=== PATIENT | male | born 1975 | race Caucasian/White ===

== ENCOUNTER 2016-12-06 11:37 | Emergency (ER) | payer SELFPAY ==
[~2016-12-06] VITALS: Ht 182.9 cm; Wt 268.1 kg
[2016-12-06] MEDS ORDERED: ALBU17IN2 INH (12:53)
[2016-12-06] MEDS ORDERED: SYMB16INH INH (12:53)
[2016-12-06] MEDS ORDERED: PRED20TA PO (12:53)
[2016-12-06] MEDS ORDERED: ALBU83IN INH (12:53)
[2016-12-06 13:43] VITALS: BP 132/72
== END 2016-12-06 13:47 | disposition home or self-care (01) ==
LOC: M ED 13:29
DX: Z76.0 Encounter for issue of repeat prescription (principal); G47.33 Obstructive sleep apnea (adult) (pediatric); E66.9 Obesity, unspecified; F17.210 Nicotine dependence, cigarettes, uncomplicated

== ENCOUNTER 2018-02-11 20:15 | Emergency (ER) | payer OTHER, SELFPAY ==
[2018-02-11] MEDS: FUROSEMIDE 100 MG/10 ML VIAL (J1940) IV (20:59)
[2018-02-11] MEDS: ASPIRIN 81 MG CHEW TABLET PO (20:59)
[2018-02-11] MEDS: IPRATROPIUM 0.5MG/ALBUTEROL 2.5MG INH SOL UD 3ML (DUONEB)(J7620) NEB (21:03)
[2018-02-11 21:04] LABS: BASO % 0.2 % (0.0-1.0); EOS # 0.1 10^3/uL (0.0-0.50); EOS % 1.4 % (0.0-3.0); HEMATOCRIT 36.9 % (42.0-52.0); HEMOGLOBIN 11.7 g/dl (13.5-17.5); IMMATURE GRANULOCYTE % 0.4 % (0-3.0); LYMPH # 1.2 10^3/uL (1.5-4.5); LYMPH % 12.7 % (24.0-44.0); MEAN CORPUSCULAR HEMOGLOBIN 28.3 pg (27.0-33.0); MEAN CORPUSCULAR HGB CONC 31.7 g/dl (32.0-36.5); MEAN CORPUSCULAR VOLUME 89.3 fl (80.0-96.0); MONO # 0.6 10^3/uL (0.0-0.8); NEUTROPHILS # 7.6 10^3/uL (1.8-7.7); NEUTROPHILS % 79.3 % (36.0-66.0); PLATELET COUNT, AUTOMATED 374 10^3/uL (150-450); RED BLOOD COUNT 4.13 10^6/uL (4.30-6.10); RED CELL DISTRIBUTION WIDTH 15.4 % (11.5-14.5); WHITE BLOOD COUNT 9.6 10^3/uL (4.0-10.0)
[2018-02-11 21:14] LABS: PROTHROMBIN TIME 13.3 SECONDS (12.1-14.4)
[2018-02-11 21:28] LABS: ALBUMIN/GLOBULIN RATIO 0.48 (1.00-1.93); ALKALINE PHOSPHATASE 83 U/L (45-117); ALT/SGPT 32 U/L (12-78); ANION GAP 8 MEQ/L (8-16); AST/SGOT 17 U/L (7-37); BILIRUBIN,DIRECT 0.2 MG/DL (0.0-0.2); BILIRUBIN,TOTAL 0.7 MG/DL (0.2-1.0); BLOOD UREA NITROGEN 11 MG/DL (7-18); CALCIUM LEVEL 8.6 MG/DL (8.5-10.1); CARBON DIOXIDE LEVEL 29 MEQ/L (21-32); CHLORIDE LEVEL 102 MEQ/L (98-107); CK-MB VALUE MASS < 1.0 NG/ML (<3.6); CPK CREATINE PHOSPHOKINASE 76 U/L (39-308); CREATININE FOR GFR 0.94 MG/DL (0.70-1.30); GLOMERULAR FILTRATION RATE > 60.0 (>60); GLUCOSE, FASTING 122 MG/DL (70-100); MB/CK RELATIVE INDEX 1.31 (< OR =4); SODIUM LEVEL 139 MEQ/L (136-145); TOTAL PROTEIN 9.3 GM/DL (6.4-8.2); TROPONIN I < 0.02 NG/ML (< 0.10)
== END 2018-02-11 23:39 | disposition home or self-care (01) ==
LOC: M ED 20:15
DX: M79.89 Other specified soft tissue disorders (principal); R06.00 Dyspnea, unspecified; R00.0 Tachycardia, unspecified; R94.31 Abnormal electrocardiogram [ECG] [EKG]; I51.9 Heart disease, unspecified; I10 Essential (primary) hypertension; J44.9 Chronic obstructive pulmonary disease, unspecified
CPT/HCPCS: J1940

== ENCOUNTER → 2018-02-22 | Outpatient (REF) | payer OTHER | LOC: M SFHCPLAZ 15:23 | DX: R06.02 Shortness of breath (principal); E03.9 Hypothyroidism, unspecified; E11.8 Type 2 diabetes mellitus with unspecified complications ==

== ENCOUNTER → 2018-03-01 | Outpatient (REF) | payer OTHER ==
[2018-03-01 14:55] LABS: ESTIMATED AVERAGE GLUCOSE 120 MG/DL (60-110); HEMOGLOBIN A1c 5.8 %
[2018-03-01 15:53] LABS: TOTAL T3 107.1 NG/DL (60.0-181.0)
== END ==
LOC: M LABDRAWP 13:11
DX: R06.02 Shortness of breath (principal); E03.9 Hypothyroidism, unspecified; E11.8 Type 2 diabetes mellitus with unspecified complications
CPT/HCPCS: 84443

== ENCOUNTER → 2018-03-01 | Outpatient (REF) | payer OTHER | LOC: M SFHCPLAZ 15:31 | DX: E03.9 Hypothyroidism, unspecified (principal) ==

== ENCOUNTER 2018-03-07 07:25 | Emergency (ER) | payer OTHER ==
[2018-03-07 08:14] LABS: BASO % 0.1 % (0.0-1.0); EOS # 0.2 10^3/uL (0.0-0.50); EOS % 1.5 % (0.0-3.0); HEMATOCRIT 35.1 % (42.0-52.0); HEMOGLOBIN 10.9 g/dl (13.5-17.5); IMMATURE GRANULOCYTE % 0.4 % (0-3.0); LYMPH # 0.8 10^3/uL (1.5-4.5); LYMPH % 7.9 % (24.0-44.0); MEAN CORPUSCULAR HEMOGLOBIN 28.2 pg (27.0-33.0); MEAN CORPUSCULAR HGB CONC 31.1 g/dl (32.0-36.5); MEAN CORPUSCULAR VOLUME 90.7 fl (80.0-96.0); MONO # 0.5 10^3/uL (0.0-0.8); MONO % 4.8 % (0.0-5.0); NEUTROPHILS % 85.3 % (36.0-66.0); PLATELET COUNT, AUTOMATED 329 10^3/uL (150-450); RED BLOOD COUNT 3.87 10^6/uL (4.30-6.10); RED CELL DISTRIBUTION WIDTH 15.4 % (11.5-14.5); WHITE BLOOD COUNT 10.5 10^3/uL (4.0-10.0)
[2018-03-07 08:25] LABS: INR 1.08; PROTHROMBIN TIME 14.1 SECONDS (12.1-14.4)
[2018-03-07 08:46] LABS: ALBUMIN 2.7 GM/DL (3.2-5.2); ALBUMIN/GLOBULIN RATIO 0.46 (1.00-1.93); ALKALINE PHOSPHATASE 84 U/L (45-117); ALT/SGPT 33 U/L (12-78); ANION GAP 8 MEQ/L (8-16); AST/SGOT 18 U/L (7-37); BILIRUBIN,DIRECT 0.2 MG/DL (0.0-0.2); BILIRUBIN,TOTAL 0.7 MG/DL (0.2-1.0); BLOOD UREA NITROGEN 10 MG/DL (7-18); CALCIUM LEVEL 8.8 MG/DL (8.5-10.1); CARBON DIOXIDE LEVEL 26 MEQ/L (21-32); CHLORIDE LEVEL 104 MEQ/L (98-107); CPK CREATINE PHOSPHOKINASE 60 U/L (39-308); CREATININE FOR GFR 0.85 MG/DL (0.70-1.30); GLOMERULAR FILTRATION RATE > 60.0 (>60); GLUCOSE, FASTING 117 MG/DL (70-100); POTASSIUM SERUM 3.9 MEQ/L (3.5-5.1); SODIUM LEVEL 138 MEQ/L (136-145); TOTAL PROTEIN 8.6 GM/DL (6.4-8.2); TROPONIN I < 0.02 NG/ML (< 0.10)
[2018-03-07 08:52] LABS: CK-MB VALUE MASS 1.1 NG/ML (<3.6); MB/CK RELATIVE INDEX 1.83 (< OR =4); NT-PRO BNP 42 PG/ML (<125)
[2018-03-07 11:00] LABS: ESTIMATED AVERAGE GLUCOSE 120 MG/DL (60-110); HEMOGLOBIN A1c 5.8 %
== END 2018-03-07 12:00 | disposition home or self-care (01) ==
LOC: M ED 07:25
DX: S80.02XA Contusion of left knee, initial encounter (principal); S70.02XA Contusion of left hip, initial encounter; W01.0XXA Fall on same level from slipping, tripping and stumbling without subsequent striking against object, initial encounter; Y92.89 Other specified places as the place of occurrence of the external cause; E11.9 Type 2 diabetes mellitus without complications; I10 Essential (primary) hypertension; J44.9 Chronic obstructive pulmonary disease, unspecified; E07.9 Disorder of thyroid, unspecified; I89.0 Lymphedema, not elsewhere classified; Z79.899 Other long term (current) drug therapy; Z79.84 Long term (current) use of oral hypoglycemic drugs; Z87.891 Personal history of nicotine dependence
CPT/HCPCS: 71046

== ENCOUNTER → 2018-03-22 | Outpatient (REF) | payer OTHER ==
[2018-03-22 18:30] LABS: ANION GAP 9 MEQ/L (8-16); BLOOD UREA NITROGEN 8 MG/DL (7-18); CALCIUM LEVEL 8.8 MG/DL (8.5-10.1); CARBON DIOXIDE LEVEL 28 MEQ/L (21-32); CHLORIDE LEVEL 100 MEQ/L (98-107); GLOMERULAR FILTRATION RATE > 60.0 (>60); GLUCOSE, FASTING 86 MG/DL (70-100); POTASSIUM SERUM 3.9 MEQ/L (3.5-5.1); SODIUM LEVEL 137 MEQ/L (136-145)
== END ==
LOC: M SFHCPLAZ 15:46
DX: I89.0 Lymphedema, not elsewhere classified (principal)

== ENCOUNTER → 2018-04-04 | Outpatient (CLI) | payer OTHER | LOC: M CARPUL 10:29 | DX: I89.0 Lymphedema, not elsewhere classified (principal) | CPT/HCPCS: 93306 ==

== ENCOUNTER → 2018-04-05 | Outpatient (REF) | payer OTHER | LOC: M SFHCPLAZ 14:45 | DX: I89.0 Lymphedema, not elsewhere classified (principal) ==

== ENCOUNTER 2018-05-10 10:48 | Outpatient (RCR) | payer OTHER | END 2018-05-12 | LOC: M PT 10:48 | DX: I89.0 Lymphedema, not elsewhere classified (principal) | CPT/HCPCS: 97530 ==

== ENCOUNTER 2018-05-13 14:46 | Outpatient (RCR) | payer OTHER | END 2018-06-12 | LOC: M PT 05-15 14:44 | DX: I89.0 Lymphedema, not elsewhere classified (principal) | CPT/HCPCS: 97140 ==

== ENCOUNTER 2018-06-14 15:30 | Outpatient (RCR) | payer OTHER | END 2018-07-12 | LOC: M PT 15:30 | DX: I89.0 Lymphedema, not elsewhere classified (principal) | CPT/HCPCS: 97140 ==

== ENCOUNTER 2018-07-07 00:03 | Emergency (ER) | payer OTHER ==
[2018-07-07] MEDS ORDERED: LORazepam 2 MG/ML VIAL (J2060) IV (01:10)
[2018-07-07 01:22] LABS: BASO % 0.3 % (0.0-1.0); EOS # 0.4 10^3/uL (0.0-0.50); EOS % 5.3 % (0.0-3.0); HEMATOCRIT 40.1 % (42.0-52.0); HEMOGLOBIN 12.6 g/dl (13.5-17.5); IMMATURE GRANULOCYTE % 0.4 % (0-3.0); LYMPH # 1.3 10^3/uL (1.5-4.5); LYMPH % 17.1 % (24.0-44.0); MEAN CORPUSCULAR HEMOGLOBIN 28.1 pg (27.0-33.0); MEAN CORPUSCULAR HGB CONC 31.4 g/dl (32.0-36.5); MEAN CORPUSCULAR VOLUME 89.5 fl (80.0-96.0); MONO # 0.4 10^3/uL (0.0-0.8); MONO % 5.3 % (0.0-5.0); NEUTROPHILS # 5.6 10^3/uL (1.8-7.7); NEUTROPHILS % 71.6 % (36.0-66.0); PLATELET COUNT, AUTOMATED 321 10^3/uL (150-450); RED BLOOD COUNT 4.48 10^6/uL (4.30-6.10); RED CELL DISTRIBUTION WIDTH 14.5 % (11.5-14.5); WHITE BLOOD COUNT 7.8 10^3/uL (4.0-10.0)
[2018-07-07 01:54] LABS: ANION GAP 8 MEQ/L (8-16); BLOOD UREA NITROGEN 10 MG/DL (7-18); CALCIUM LEVEL 8.9 MG/DL (8.5-10.1); CARBON DIOXIDE LEVEL 27 MEQ/L (21-32); CHLORIDE LEVEL 102 MEQ/L (98-107); CREATININE FOR GFR 0.81 MG/DL (0.70-1.30); GLOMERULAR FILTRATION RATE > 60.0 (>60); GLUCOSE, FASTING 111 MG/DL (70-100); NT-PRO BNP 47 PG/ML (<125); SODIUM LEVEL 137 MEQ/L (136-145)
[2018-07-07] MEDS: IPRATROPIUM 0.5MG/ALBUTEROL 2.5MG INH SOL UD 3ML (DUONEB)(J7620) NEB (01:56)
[2018-07-07] MEDS: ALBUTEROL 90 MCG/ACT 8GM HFA INHALER INH (04:15)
== END 2018-07-07 05:06 | disposition home or self-care (01) ==
LOC: M ED 00:03
DX: J00 Acute nasopharyngitis [common cold] (principal); I50.9 Heart failure, unspecified; E11.9 Type 2 diabetes mellitus without complications; J44.9 Chronic obstructive pulmonary disease, unspecified; Z87.891 Personal history of nicotine dependence
CPT/HCPCS: 71045

== ENCOUNTER → 2018-08-02 | Outpatient (REF) | payer OTHER ==
[~2018-08-02] MED LIST: ALBU17IN2 INH; ALBU83IN INH; FURO80TA2 PO; HYDR12.55 PO; INDO25CA PO; METF10004 PO; NYST1POW9 TOP; OMEP20CA3 PO; PHEN-239 PO; PRED20TA PO; PROAAER10 INH; SYMB16INH INH; TOPI100T9 PO; VENTAER INH
== END ==
LOC: M SFHCPLAZ 14:15
DX: I89.0 Lymphedema, not elsewhere classified (principal)

== ENCOUNTER → 2019-11-25 | Outpatient (REF) | payer OTHER ==
[~2019-11-25] MED LIST changes: +INDO-16 PO; -INDO25CA PO; +OMEP1CAP73 PO; -OMEP20CA3 PO
[2019-11-25 18:37] LABS: BLOOD UREA NITROGEN 12 MG/DL (7-18); CALCIUM LEVEL 9.5 MG/DL (8.5-10.1); CARBON DIOXIDE LEVEL 28 MEQ/L (21-32); CHLORIDE LEVEL 104 MEQ/L (98-107); GLOMERULAR FILTRATION RATE > 60.0 (>60); GLUCOSE, FASTING 84 MG/DL (70-100); POTASSIUM SERUM 3.7 MEQ/L (3.5-5.1); SODIUM LEVEL 138 MEQ/L (136-145)
== END ==
LOC: M SFHCPLAZ 17:45
PROVIDERS: ATTEND Internal Medicine
DX: I89.0 Lymphedema, not elsewhere classified (principal)

== ENCOUNTER → 2021-07-18 | Outpatient (REF) | payer OTHER ==
[~2021-07-18] MED LIST changes: +PROV108A INH
== END ==
LOC: M SFHCPLAZ 15:51
PROVIDERS: ATTEND Family Medicine
DX: E03.9 Hypothyroidism, unspecified (principal); R73.03 Prediabetes

== ENCOUNTER → 2022-06-26 | Outpatient (REF) | payer OTHER ==
[~2022-06-26] MED LIST changes: +ALBU2.5V10 INH; +ALBU6.7H6 INH; -ALBU83IN INH; -PROV108A INH
[2022-06-26 18:25] LABS: BASO % 0.2 % (0.0-1.0); EOS # 0.2 10^3/uL (0.0-0.5); EOS % 2.7 % (0.0-3.0); HEMATOCRIT 44.7 % (42.0-52.0); HEMOGLOBIN 13.4 g/dl (13.5-17.5); LYMPH # 1.1 10^3/uL (1.5-5.0); LYMPH % 13.9 % (24.0-44.0); MEAN CORPUSCULAR HEMOGLOBIN 29.6 pg (27.0-33.0); MEAN CORPUSCULAR VOLUME 98.7 fl (80.0-96.0); MONO # 0.5 10^3/uL (0.0-0.8); MONO % 6.5 % (2.0-8.0); NEUTROPHILS # 6.2 10^3/uL (1.5-8.5); NEUTROPHILS % 76.1 % (36.0-66.0); PLATELET COUNT, AUTOMATED 305 10^3/uL (150-450); RED BLOOD COUNT 4.53 10^6/uL (4.30-6.10); WHITE BLOOD COUNT 8.1 10^3/uL (4.0-10.0)
[2022-06-26 19:23] LABS: ALT/SGPT 21 U/L (12-78); BILIRUBIN,TOTAL 0.3 MG/DL (0.2-1.0); BLOOD UREA NITROGEN 14 MG/DL (7-18); CALCIUM LEVEL 8.3 MG/DL (8.5-10.1); CARBON DIOXIDE LEVEL 29 MEQ/L (21-32); CHLORIDE LEVEL 107 MEQ/L (98-107); CREATININE FOR GFR 0.61 MG/DL (0.70-1.30); FREE T4 0.77 NG/DL (0.76-1.46); GLOMERULAR FILTRATION RATE > 60.0 (>60); GLUCOSE, FASTING 108 MG/DL (70-100); NT-PRO BNP 172 PG/ML (<125); POTASSIUM SERUM 5.2 MEQ/L (3.5-5.1); SODIUM LEVEL 141 MEQ/L (136-145)
[2022-06-26 20:49] LABS: HEMOGLOBIN A1c 5.5 %
[2022-06-26 21:09] LABS: THYROGLOBULIN ANTIBODY < 15.0 U/ML (<60.0); THYROID PEROXIDASE ANTIBODY 57.9 U/ML (<60.0)
[2022-06-26 22:32] LABS: FREE T3 3.1 PG/ML (2.2-4.0)
== END ==
LOC: M LAB REF 17:19
PROVIDERS: ATTEND Nurse Practitioner Family
DX: R60.0 Localized edema (principal); R73.03 Prediabetes; R94.6 Abnormal results of thyroid function studies

== ENCOUNTER 2022-09-26 02:36 | Inpatient (IN) | payer OTHER ==
[~2022-09-26] VITALS: Ht 182.9 cm; Wt 287.5 kg
[2022-09-26] MEDS ORDERED: IPRATROPIUM 0.5MG/ALBUTEROL 2.5MG INH SOL UD 3ML (DUONEB) NEB ONE (03:15)
[2022-09-26 04:34] LABS: BASO % 0.3 % (0.0-1.0); EOS # 0.4 10^3/uL (0.0-0.5); EOS % 3.6 % (0.0-3.0); HEMATOCRIT 41.1 % (42.0-52.0); HEMOGLOBIN 12.8 g/dl (13.5-17.5); LYMPH # 1.5 10^3/uL (1.5-5.0); LYMPH % 14.8 % (24.0-44.0); MEAN CORPUSCULAR HEMOGLOBIN 29.7 pg (27.0-33.0); MEAN CORPUSCULAR HGB CONC 31.1 g/dl (32.0-36.5); MEAN CORPUSCULAR VOLUME 95.4 fl (80.0-96.0); MONO # 0.7 10^3/uL (0.0-0.8); MONO % 6.8 % (2.0-8.0); NEUTROPHILS # 7.4 10^3/uL (1.5-8.5); NEUTROPHILS % 74.1 % (36.0-66.0); PLATELET COUNT, AUTOMATED 300 10^3/uL (150-450); RED BLOOD COUNT 4.31 10^6/uL (4.30-6.10); WHITE BLOOD COUNT 9.9 10^3/uL (4.0-10.0)
[2022-09-26 04:57] LABS: BLOOD UREA NITROGEN 10 MG/DL (9-23); CALCIUM LEVEL 8.4 MG/DL (8.5-10.1); CARBON DIOXIDE LEVEL 30 MMOL/L (20-31); CHLORIDE LEVEL 104 MMOL/L (98-107); CK-MB VALUE MASS 2.2 NG/ML (<3.6); CPK CREATINE PHOSPHOKINASE 78 U/L (46-171); CREATININE FOR GFR 0.67 MG/DL (0.70-1.30); GLOMERULAR FILTRATION RATE > 60.0 (>60); GLUCOSE, FASTING 113 MG/DL (60-100); MB/CK RELATIVE INDEX 2.82 (< OR =4); POTASSIUM SERUM 4.2 MMOL/L (3.5-5.1); SODIUM LEVEL 138 MMOL/L (136-145)
[2022-09-26 05:08] LABS: ABG BASE EXCESS 2.2 (-2.0-2.0); ABG HCO3 26.6 MEQ/L (22.0-26.0); ABG PARTIAL PRESSURE CO2 40.5 mmHg (35.0-45.0); ABG PARTIAL PRESSURE O2 101.5 mmHg (75.0-100.0); ABG STANDARD HCO3 26.4 MEQ/L (22.0-26.0); ABG TOTAL CO2 27.8 MEQ/L (22.0-29.0); ABG pH (ARTERIAL) 7.435 UNITS (7.350-7.450)
[2022-09-26] MEDS ORDERED: FUROSEMIDE 100MG/10ML VIAL IV ONE (08:10)
[2022-09-26 08:32] LABS: CK-MB VALUE MASS 1.2 NG/ML (<3.6)
[2022-09-26 08:37] LABS: MB/CK RELATIVE INDEX 1.51 (< OR =4)
[2022-09-26] MEDS ORDERED: methylPREDNISolone 125MG 2ML VIAL IV ONE (09:10)
[2022-09-26] MEDS ORDERED: LEVO25TA5 PO (10:18)
[2022-09-26] MEDS ORDERED: VENTAER INH (10:18)
[2022-09-26] MEDS ORDERED: PARO20TA3 PO (10:18)
[2022-09-26] MEDS ORDERED: VITA200032 PO (10:18)
[2022-09-26] MEDS ORDERED: HOME MED LIST COMPLETE! XX SCH (10:20)
[2022-09-26] MEDS ORDERED: GLUCAGON INJ 1MG VIAL SC PRN (12:25)
[2022-09-26] MEDS ORDERED: GLUCOSE 4GM CHEW TABLET PO PRN (12:25)
[2022-09-26] MEDS ORDERED: ALBUTEROL SULFATE 2.5MG/0.5ML INH NEB SOLN NEB PRN (12:25)
[2022-09-26] MEDS ORDERED: DEXTROSE 50% 50ML SYRINGE IV PRN (12:25)
[2022-09-26] MEDS ORDERED: ISOVUE-370 76% 100ML VIAL As Ordered ONE (13:01)
[2022-09-26] MEDS: AZITHROMYCIN INJ 500 MG, VIAL MATE ADAPTER 1 EACH in NS 250 ML IV SCH (13:20)
[2022-09-26] MEDS: LEVOTHYROXINE 25MCG TABLET (0.025MG) PO SCH (13:20)
[2022-09-26] MEDS: PARoxetine 20MG TABLET PO SCH (13:20)
[2022-09-26] MEDS: IPRATROPIUM 0.5MG/ALBUTEROL 2.5MG INH SOL UD 3ML (DUONEB) NEB SCH ×2 (14:21→20:24)
[2022-09-26 14:28] LABS: HEMOGLOBIN A1c 5.2 % (4.0-6.0)
[2022-09-26 14:59] LABS: THYROID STIMULATING HORMONE 5.396 uIU/ML (0.55-4.78)
[2022-09-26 16:05] VITALS: BP 120/57
[2022-09-26] MEDS: BUMETANIDE 1MG/4ML VIAL IV SCH (18:00)
[2022-09-26] MEDS: INSULIN LISPRO (NovoLOG) PER UNIT SC SCH ×2 (18:30→20:30)
[2022-09-26 20:00] VITALS: BP 131/74
[2022-09-27] VITALS: BP 141/76
[2022-09-27] MEDS: IPRATROPIUM 0.5MG/ALBUTEROL 2.5MG INH SOL UD 3ML (DUONEB) NEB SCH ×4 (01:57→19:52)
[2022-09-27 04:20] VITALS: BP 143/79
[2022-09-27 04:49] LABS: HEMATOCRIT 41.9 % (42.0-52.0); MEAN CORPUSCULAR HEMOGLOBIN 29.5 pg (27.0-33.0); PLATELET COUNT, AUTOMATED 327 10^3/uL (150-450); RED BLOOD COUNT 4.41 10^6/uL (4.30-6.10); WHITE BLOOD COUNT 11.6 10^3/uL (4.0-10.0)
[2022-09-27 05:13] LABS: BLOOD UREA NITROGEN 14 MG/DL (9-23); CALCIUM LEVEL 8.3 MG/DL (8.5-10.1); CARBON DIOXIDE LEVEL 31 MMOL/L (20-31); CHLORIDE LEVEL 107 MMOL/L (98-107); CREATININE FOR GFR 0.71 MG/DL (0.70-1.30); GLOMERULAR FILTRATION RATE > 60.0 (>60); GLUCOSE, FASTING 133 MG/DL (60-100); MAGNESIUM LEVEL 2.1 MG/DL (1.8-2.4); POTASSIUM SERUM 4.5 MMOL/L (3.5-5.1); SODIUM LEVEL 141 MMOL/L (136-145)
[2022-09-27] MEDS: BUMETANIDE 1MG/4ML VIAL IV SCH ×2 (06:18→18:22)
[2022-09-27] MEDS: LEVOTHYROXINE 25MCG TABLET (0.025MG) PO SCH (06:19)
[2022-09-27 07:55] VITALS: BP 138/70
[2022-09-27] MEDS: PARoxetine 20MG TABLET PO SCH (09:05)
[2022-09-27] MEDS: INSULIN LISPRO (NovoLOG) PER UNIT SC SCH ×4 (09:05→21:00)
[2022-09-27] MEDS: ENOXAPARIN 40MG/0.4ML SYRINGE (J1650 PER 10MG) SC SCH (09:05)
[2022-09-27] MEDS: predniSONE 20 MG TAB PO SCH (09:06)
[2022-09-27 12:09] VITALS: BP 164/72
[2022-09-27] MEDS: AZITHROMYCIN INJ 500 MG, VIAL MATE ADAPTER 1 EACH in NS 250 ML IV SCH (14:34)
[2022-09-27 18:09] VITALS: BP 132/80
[2022-09-27 20:58] VITALS: BP 135/70
[2022-09-28] VITALS: BP 135/67
[2022-09-28] MEDS: IPRATROPIUM 0.5MG/ALBUTEROL 2.5MG INH SOL UD 3ML (DUONEB) NEB SCH ×4 (01:06→20:45)
[2022-09-28 04:00] VITALS: BP 144/74
[2022-09-28] MEDS: BUMETANIDE 1MG/4ML VIAL IV SCH (06:13)
[2022-09-28] MEDS: LEVOTHYROXINE 25MCG TABLET (0.025MG) PO SCH (06:14)
[2022-09-28 07:52] VITALS: BP 135/69
[2022-09-28 08:03] LABS: BASO % 0.3 % (0.0-1.0); EOS # 0.1 10^3/uL (0.0-0.5); EOS % 0.8 % (0.0-3.0); HEMATOCRIT 44.8 % (42.0-52.0); LYMPH # 2.2 10^3/uL (1.5-5.0); LYMPH % 23.1 % (24.0-44.0); MEAN CORPUSCULAR HEMOGLOBIN 29.5 pg (27.0-33.0); MEAN CORPUSCULAR HGB CONC 31.3 g/dl (32.0-36.5); MEAN CORPUSCULAR VOLUME 94.5 fl (80.0-96.0); MONO # 0.7 10^3/uL (0.0-0.8); NEUTROPHILS # 6.4 10^3/uL (1.5-8.5); NEUTROPHILS % 68.4 % (36.0-66.0); PLATELET COUNT, AUTOMATED 358 10^3/uL (150-450); RED BLOOD COUNT 4.74 10^6/uL (4.30-6.10); WHITE BLOOD COUNT 9.3 10^3/uL (4.0-10.0)
[2022-09-28 08:23] LABS: BLOOD UREA NITROGEN 19 MG/DL (9-23); CALCIUM LEVEL 8.6 MG/DL (8.5-10.1); CARBON DIOXIDE LEVEL 33 MMOL/L (20-31); CHLORIDE LEVEL 102 MMOL/L (98-107); CREATININE FOR GFR 0.82 MG/DL (0.70-1.30); GLOMERULAR FILTRATION RATE > 60.0 (>60); GLUCOSE, FASTING 94 MG/DL (60-100); POTASSIUM SERUM 4.1 MMOL/L (3.5-5.1); SODIUM LEVEL 140 MMOL/L (136-145)
[2022-09-28] MEDS ORDERED: ADV100INH INH (08:23)
[2022-09-28] MEDS ORDERED: FARX1TAB3 PO (08:23)
[2022-09-28] MEDS: ENOXAPARIN 40MG/0.4ML SYRINGE (J1650 PER 10MG) SC SCH (09:02)
[2022-09-28] MEDS: AZITHROMYCIN 250MG TABLET PO SCH (09:02)
[2022-09-28] MEDS: INSULIN LISPRO (NovoLOG) PER UNIT SC SCH ×4 (09:02→20:10)
[2022-09-28] MEDS: predniSONE 20 MG TAB PO SCH (09:03)
[2022-09-28] MEDS: PARoxetine 20MG TABLET PO SCH (09:03)
[2022-09-28] MEDS ORDERED: ALBU8.5H INH (10:20)
[2022-09-28] MEDS ORDERED: METO5TA PO (10:20)
[2022-09-28] MEDS ORDERED: PRED20TA PO ×2 (10:20→10:47)
[2022-09-28] MEDS ORDERED: IPRA0.00 NEB (10:47)
[2022-09-28] MEDS ORDERED: AZIT500T5 PO (10:47)
[2022-09-28] MEDS ORDERED: BUME2TAB3 PO (10:47)
[2022-09-28] MEDS ORDERED: POTASSIUM CHLORIDE 10MEQ SR TABLET PO ONE (11:30)
[2022-09-28] MEDS ORDERED: AIRD1INH INH (11:38)
[2022-09-28 12:13] VITALS: BP 141/70
[2022-09-28] MEDS ORDERED: RIVAROXABAN 10MG TAB (XARELTO) PO SCH (18:00)
[2022-09-28] MEDS: BUMETANIDE 1 MG TAB PO SCH (18:17)
[2022-09-28 20:00] VITALS: BP 154/74
[2022-09-29] MEDS: IPRATROPIUM 0.5MG/ALBUTEROL 2.5MG INH SOL UD 3ML (DUONEB) NEB SCH ×2 (01:05→07:12)
[2022-09-29 04:23] LABS: BASO % 0.2 % (0.0-1.0); EOS # 0.1 10^3/uL (0.0-0.5); EOS % 0.6 % (0.0-3.0); HEMATOCRIT 41.4 % (42.0-52.0); HEMOGLOBIN 13.4 g/dl (13.5-17.5); LYMPH # 2.1 10^3/uL (1.5-5.0); LYMPH % 22.7 % (24.0-44.0); MEAN CORPUSCULAR HEMOGLOBIN 29.9 pg (27.0-33.0); MEAN CORPUSCULAR HGB CONC 32.4 g/dl (32.0-36.5); MEAN CORPUSCULAR VOLUME 92.4 fl (80.0-96.0); MONO # 0.8 10^3/uL (0.0-0.8); MONO % 8.1 % (2.0-8.0); NEUTROPHILS # 6.3 10^3/uL (1.5-8.5); PLATELET COUNT, AUTOMATED 329 10^3/uL (150-450); RED BLOOD COUNT 4.48 10^6/uL (4.30-6.10); WHITE BLOOD COUNT 9.3 10^3/uL (4.0-10.0)
[2022-09-29 04:53] LABS: BLOOD UREA NITROGEN 19 MG/DL (9-23); CALCIUM LEVEL 8.5 MG/DL (8.5-10.1); CARBON DIOXIDE LEVEL 32 MMOL/L (20-31); CHLORIDE LEVEL 102 MMOL/L (98-107); CREATININE FOR GFR 0.75 MG/DL (0.70-1.30); GLOMERULAR FILTRATION RATE > 60.0 (>60); GLUCOSE, FASTING 89 MG/DL (60-100); POTASSIUM SERUM 3.9 MMOL/L (3.5-5.1); SODIUM LEVEL 140 MMOL/L (136-145)
[2022-09-29] MEDS: LEVOTHYROXINE 25MCG TABLET (0.025MG) PO SCH (05:28)
[2022-09-29] MEDS ORDERED: POTASSIUM CHLORIDE 10MEQ SR TABLET PO ONE (07:15)
[2022-09-29] MEDS: INSULIN LISPRO (NovoLOG) PER UNIT SC SCH ×2 (07:18→11:34)
[2022-09-29 07:48] VITALS: BP 136/90
[2022-09-29] MEDS: predniSONE 20 MG TAB PO SCH (08:02)
[2022-09-29] MEDS: BUMETANIDE 1 MG TAB PO SCH (08:02)
[2022-09-29] MEDS: PARoxetine 20MG TABLET PO SCH (08:02)
[2022-09-29] MEDS: AZITHROMYCIN 250MG TABLET PO SCH (08:03)
[2022-09-29] MEDS ORDERED: SPIRONOLACTONE 25 MG TAB PO SCH (09:00)
[2022-09-29 14:08] LABS: BODY FLUID CULTURE Not indicated. (.); LEGIONELLA ANTIGEN URINE Negative (Negative); ORGANISM ID Not indicated. (.); SPECIMEN SOURCE Urine (.); URINE STREP PNEUMONIAE ANTIGEN Negative (Negative)
[2022-09-29] MEDS ORDERED: POTA-151 PO (15:52)
[2022-09-29] MEDS ORDERED: BUME2TAB3 PO (15:52)
== END 2022-09-29 13:35 | disposition home health service (06) | DRG 194 ==
LOC: M ED 02:36 → M ED INP 09:41 → M PCU 16:00 → ENRESERV 16:08
PROVIDERS: ADMIT Internal Medicine; ATTEND Internal Medicine
PROC: B246ZZZ Ultrasonography of Right and Left Heart (ICD-10-PCS; principal; 2022-09-26)
DX: I50.33 Acute on chronic diastolic (congestive) heart failure (principal); J18.9 Pneumonia, unspecified organism; I27.81 Cor pulmonale (chronic); E66.2 Morbid (severe) obesity with alveolar hypoventilation; Z68.45 Body mass index [BMI] 70 or greater, adult; J44.0 Chronic obstructive pulmonary disease with (acute) lower respiratory infection; J44.1 Chronic obstructive pulmonary disease with (acute) exacerbation; E11.9 Type 2 diabetes mellitus without complications; K21.9 Gastro-esophageal reflux disease without esophagitis; E03.9 Hypothyroidism, unspecified; F41.9 Anxiety disorder, unspecified; R26.89 Other abnormalities of gait and mobility; F32.A Depression, unspecified; Z20.822 Contact with and (suspected) exposure to COVID-19; Z79.890 Hormone replacement therapy; Z79.84 Long term (current) use of oral hypoglycemic drugs; Z79.899 Other long term (current) drug therapy

== ENCOUNTER → 2022-10-04 | Outpatient (REF) | payer OTHER ==
[~2022-10-04] MED LIST changes: +ADV100INH INH; +AIRD1INH INH; +ALBU8.5H INH; +AZIT500T5 PO; +BUME2TAB3 PO; +FARX1TAB3 PO; +IPRA0.00 NEB; +LEVO25TA5 PO; +METO5TA PO; +PARO20TA3 PO; +POTA-151 PO; +VITA200032 PO
[2022-10-04 16:51] LABS: BLOOD UREA NITROGEN 20 MG/DL (9-23); CALCIUM LEVEL 8.9 MG/DL (8.5-10.1); CARBON DIOXIDE LEVEL 35 MMOL/L (20-31); CHLORIDE LEVEL 97 MMOL/L (98-107); CREATININE FOR GFR 0.79 MG/DL (0.70-1.30); GLOMERULAR FILTRATION RATE > 60.0 (>60); GLUCOSE, FASTING 88 MG/DL (60-100); MAGNESIUM LEVEL 1.9 MG/DL (1.8-2.4); SODIUM LEVEL 137 MMOL/L (136-145)
[2022-10-04 16:56] LABS: THYROID STIMULATING HORMONE 4.038 uIU/ML (0.55-4.78)
[2022-10-04 17:51] LABS: HEMOGLOBIN A1c 5.5 % (4.0-6.0)
== END ==
LOC: M LAB REF 16:04
PROVIDERS: ATTEND Nurse Practitioner Family
DX: R60.0 Localized edema (principal); E02 Subclinical iodine-deficiency hypothyroidism; R73.03 Prediabetes

== ENCOUNTER 2023-05-04 12:12 | Observation (INO) | payer OTHER ==
[~2023-05-04] VITALS: Ht 182.9 cm; Wt 252.9 kg
[2023-05-04 16:55] LABS: VENOUS HCO3 28.6 MMOL/L (23.0-27.0); VENOUS O2 SATURATION 64.8 % (60.0-80.0); VENOUS PARTIAL PRESSURE CO2 51.7 mmHg (38.0-50.0); VENOUS PARTIAL PRESSURE O2 33.9 mmHg (30.0-50.0); VENOUS PH 7.361 UNITS (7.330-7.430); VENOUS STANDARD HCO3 25.3 MMOL/L; VENOUS TOTAL CO2 30.2 MMOL/L (24.0-28.0)
[2023-05-04 17:19] LABS: BASO % 0.2 % (0.0-1.0); EOS # 0.1 10^3/uL (0.0-0.5); EOS % 0.5 % (0.0-3.0); HEMATOCRIT 47.8 % (42.0-52.0); LYMPH # 1.5 10^3/uL (1.5-5.0); LYMPH % 13.6 % (24.0-44.0); MEAN CORPUSCULAR HEMOGLOBIN 28.9 pg (27.0-33.0); MEAN CORPUSCULAR HGB CONC 31.4 g/dl (32.0-36.5); MEAN CORPUSCULAR VOLUME 92.1 fl (80.0-96.0); MONO # 0.6 10^3/uL (0.0-0.8); MONO % 5.3 % (2.0-8.0); NEUTROPHILS # 8.8 10^3/uL (1.5-8.5); NEUTROPHILS % 79.9 % (36.0-66.0); PLATELET COUNT, AUTOMATED 363 10^3/uL (150-450); RED BLOOD COUNT 5.19 10^6/uL (4.30-6.10)
[2023-05-04 17:27] LABS: ALBUMIN 2.5 G/DL (3.2-5.2); ALKALINE PHOSPHATASE 93 U/L (46-116); ALT/SGPT 24 U/L (7.0-40); AST/SGOT 24 U/L (<34); BLOOD UREA NITROGEN 9 MG/DL (9-23); CALCIUM LEVEL 8.6 MG/DL (8.5-10.1); CARBON DIOXIDE LEVEL 29 MMOL/L (20-31); CHLORIDE LEVEL 103 MMOL/L (98-107); CREATININE FOR GFR 0.81 MG/DL (0.70-1.30); GLOMERULAR FILTRATION RATE > 60.0 (>56); GLUCOSE, FASTING 85 MG/DL (60-100); POTASSIUM SERUM 3.7 MMOL/L (3.5-5.1); SODIUM LEVEL 141 MMOL/L (136-145); TOTAL PROTEIN 6.9 G/DL (5.7-8.2)
[2023-05-04 17:29] LABS: HEMOGLOBIN A1c 4.8 % (4.0-6.0)
[2023-05-04 18:04] LABS: RSV AMPLIFICATION NEGATIVE (NEGATIVE)
[2023-05-04] MEDS ORDERED: MED REC IN PROGRESS XX SCH (18:40)
[2023-05-04] MEDS ORDERED: MOM 30ML SUSPENSION UDC PO PRN (19:05)
[2023-05-04] MEDS ORDERED: MAALOX 30 ML SUSP *UDC PO PRN (19:05)
[2023-05-04] MEDS ORDERED: DEXTROSE 50% 50ML SYRINGE IV PRN (19:05)
[2023-05-04] MEDS ORDERED: GLUCOSE 4GM CHEW TABLET PO PRN (19:05)
[2023-05-04] MEDS ORDERED: GLUCAGON INJ 1MG VIAL SC PRN (19:05)
[2023-05-04] MEDS ORDERED: BUME2TAB3 PO ×2 (20:07→20:12)
[2023-05-04] MEDS ORDERED: IPRA0.00 INH (20:08)
[2023-05-04] MEDS ORDERED: HOME MED LIST COMPLETE! XX SCH (20:20)
[2023-05-04] MEDS: INSULIN LISPRO (NovoLOG) PER UNIT SC SCH (21:00)
[2023-05-04 23:30] VITALS: BP 135/83; TEMP 97.9; O2SAT 96
[2023-05-05] MEDS ORDERED: IPRATROPIUM 0.5MG/ALBUTEROL 2.5MG INH SOL UD 3ML (DUONEB) INH PRN (01:35)
[2023-05-05] MEDS ORDERED: ALBUTEROL 90 MCG/ACT 8GM HFA INHALER INH PRN (01:35)
[2023-05-05] MEDS: LEVOTHYROXINE 25MCG TABLET (0.025MG) PO SCH (05:30)
[2023-05-05 06:06] VITALS: BP 138/65; TEMP 97.7; O2SAT 94
[2023-05-05] MEDS: VITAMIN D 1,000 INTERNATIONAL UNITS TABLET PO SCH (08:03)
[2023-05-05] MEDS: INSULIN LISPRO (NovoLOG) PER UNIT SC SCH ×4 (08:03→20:29)
[2023-05-05] MEDS: BUMETANIDE 1 MG TAB PO SCH ×2 (08:04→18:05)
[2023-05-05] MEDS: metFORMIN (GLUCOPHAGE) 1000MG TABLET PO SCH (08:04)
[2023-05-05] MEDS: PARoxetine 20MG TABLET PO SCH (08:04)
[2023-05-05] MEDS ORDERED: ENOXAPARIN 40MG/0.4ML SYRINGE (J1650 PER 10MG) SC SCH (09:00)
[2023-05-05 14:00] VITALS: BP 134/77; TEMP 97.3; O2SAT 93
[2023-05-05 18:12] VITALS: BP 146/83; TEMP 97.3; O2SAT 96
[2023-05-05] MEDS: ENOXAPARIN 60MG/0.6ML SYRINGE (J1650 PER 10MG) SC SCH (20:23)
[2023-05-05] MEDS: ACETAMINOPHEN TAB 650MG DOSE (2X325MG) PO PRN (20:29)
[2023-05-05 22:00] VITALS: BP 119/72; TEMP 97; O2SAT 93
[2023-05-06] MEDS: ACETAMINOPHEN TAB 650MG DOSE (2X325MG) PO PRN (04:02)
[2023-05-06] MEDS: LEVOTHYROXINE 25MCG TABLET (0.025MG) PO SCH (04:56)
[2023-05-06 06:00] VITALS: BP 153/97; TEMP 97.7; O2SAT 94
[2023-05-06] MEDS: PARoxetine 20MG TABLET PO SCH (08:11)
[2023-05-06] MEDS: BUMETANIDE 1 MG TAB PO SCH ×3 (08:11→18:14)
[2023-05-06] MEDS: metFORMIN (GLUCOPHAGE) 1000MG TABLET PO SCH (08:11)
[2023-05-06] MEDS: VITAMIN D 1,000 INTERNATIONAL UNITS TABLET PO SCH (08:11)
[2023-05-06] MEDS: ENOXAPARIN 60MG/0.6ML SYRINGE (J1650 PER 10MG) SC SCH ×2 (08:11→20:16)
[2023-05-06] MEDS: INSULIN LISPRO (NovoLOG) PER UNIT SC SCH ×4 (08:11→20:14)
[2023-05-06 08:20] VITALS: BP 115/76
[2023-05-06 14:20] VITALS: BP 142/91; TEMP 97.7; O2SAT 99
[2023-05-06 17:14] VITALS: BP 143/91
[2023-05-06 20:45] VITALS: BP 149/75; TEMP 97.5; O2SAT 94
[2023-05-07] MEDS: LEVOTHYROXINE 25MCG TABLET (0.025MG) PO SCH (05:15)
[2023-05-07 05:18] VITALS: BP 150/82; TEMP 97.7; O2SAT 94
[2023-05-07 06:16] LABS: HEMATOCRIT 43.2 % (42.0-52.0); HEMOGLOBIN 13.4 g/dl (13.5-17.5); MEAN CORPUSCULAR HEMOGLOBIN 28.8 pg (27.0-33.0); MEAN CORPUSCULAR VOLUME 92.9 fl (80.0-96.0); PLATELET COUNT, AUTOMATED 295 10^3/uL (150-450); RED BLOOD COUNT 4.65 10^6/uL (4.30-6.10); WHITE BLOOD COUNT 5.9 10^3/uL (4.0-10.0)
[2023-05-07] MEDS: ENOXAPARIN 60MG/0.6ML SYRINGE (J1650 PER 10MG) SC SCH ×2 (08:21→20:16)
[2023-05-07] MEDS: INSULIN LISPRO (NovoLOG) PER UNIT SC SCH ×4 (08:21→20:16)
[2023-05-07] MEDS: VITAMIN D 1,000 INTERNATIONAL UNITS TABLET PO SCH (08:21)
[2023-05-07] MEDS: PARoxetine 20MG TABLET PO SCH (08:21)
[2023-05-07] MEDS: metFORMIN (GLUCOPHAGE) 1000MG TABLET PO SCH (08:21)
[2023-05-07 08:31] VITALS: BP 117/73
[2023-05-07] MEDS: BUMETANIDE 1 MG TAB PO SCH ×2 (08:31→17:24)
[2023-05-07] MEDS ORDERED: DIMETHICONE 2% OINTMENT(VANICREAM) 70GM TUBE TOP SCH (09:00)
[2023-05-07 13:39] LABS: ACETONE/KETONE 2.82 MMOL/L (0.02-0.27)
[2023-05-07 14:00] VITALS: BP 122/76; TEMP 97.5; O2SAT 93
[2023-05-07] MEDS: VANICREAM MOISTURIZING SKIN CREAM 113GM TUBE TOP SCH ×2 (15:30→20:16)
[2023-05-07 17:25] VITALS: BP 117/75
[2023-05-07 20:01] VITALS: BP 148/94; TEMP 97.7; O2SAT 93
[2023-05-07] MEDS: ACETAMINOPHEN TAB 650MG DOSE (2X325MG) PO PRN (20:16)
[2023-05-08 05:23] VITALS: BP 142/84; TEMP 98.1; O2SAT 94
[2023-05-08] MEDS: LEVOTHYROXINE 25MCG TABLET (0.025MG) PO SCH (05:35)
[2023-05-08] MEDS: VITAMIN D 1,000 INTERNATIONAL UNITS TABLET PO SCH (08:17)
[2023-05-08] MEDS: PARoxetine 20MG TABLET PO SCH (08:17)
[2023-05-08] MEDS: ENOXAPARIN 60MG/0.6ML SYRINGE (J1650 PER 10MG) SC SCH ×2 (08:17→20:40)
[2023-05-08] MEDS: metFORMIN (GLUCOPHAGE) 1000MG TABLET PO SCH (08:17)
[2023-05-08] MEDS: BUMETANIDE 1 MG TAB PO SCH ×2 (08:17→15:57)
[2023-05-08] MEDS: VANICREAM MOISTURIZING SKIN CREAM 113GM TUBE TOP SCH ×2 (08:19→20:40)
[2023-05-08] MEDS: ACETAMINOPHEN TAB 650MG DOSE (2X325MG) PO PRN ×2 (08:23→20:40)
[2023-05-08 14:00] VITALS: BP 159/99; TEMP 97.5; O2SAT 95
[2023-05-08 16:00] VITALS: BP 142/80
[2023-05-08 19:37] VITALS: BP 141/79; TEMP 97.9; O2SAT 95
[2023-05-09 05:10] VITALS: BP 148/96; TEMP 97.5; O2SAT 95
[2023-05-09] MEDS: LEVOTHYROXINE 25MCG TABLET (0.025MG) PO SCH (05:12)
[2023-05-09] MEDS: VITAMIN D 1,000 INTERNATIONAL UNITS TABLET PO SCH (09:34)
[2023-05-09] MEDS: BUMETANIDE 1 MG TAB PO SCH ×2 (09:34→18:06)
[2023-05-09] MEDS: metFORMIN (GLUCOPHAGE) 1000MG TABLET PO SCH (09:34)
[2023-05-09] MEDS: VANICREAM MOISTURIZING SKIN CREAM 113GM TUBE TOP SCH ×2 (09:35→20:40)
[2023-05-09] MEDS: PARoxetine 20MG TABLET PO SCH (09:35)
[2023-05-09] MEDS: ENOXAPARIN 60MG/0.6ML SYRINGE (J1650 PER 10MG) SC SCH ×2 (09:35→20:39)
[2023-05-09 14:00] VITALS: BP 130/85; TEMP 97.3; O2SAT 93
[2023-05-09 20:30] VITALS: BP 131/88; TEMP 97; O2SAT 92
[2023-05-09] MEDS: ACETAMINOPHEN TAB 650MG DOSE (2X325MG) PO PRN (20:40)
[2023-05-10 05:34] VITALS: BP 130/88; TEMP 97.7; O2SAT 92
[2023-05-10] MEDS: LEVOTHYROXINE 25MCG TABLET (0.025MG) PO SCH (05:38)
[2023-05-10 06:09] LABS: HEMATOCRIT 43.4 % (42.0-52.0); HEMOGLOBIN 13.6 g/dl (13.5-17.5); MEAN CORPUSCULAR HEMOGLOBIN 29.1 pg (27.0-33.0); MEAN CORPUSCULAR HGB CONC 31.3 g/dl (32.0-36.5); MEAN CORPUSCULAR VOLUME 92.9 fl (80.0-96.0); PLATELET COUNT, AUTOMATED 272 10^3/uL (150-450); RED BLOOD COUNT 4.67 10^6/uL (4.30-6.10); WHITE BLOOD COUNT 5.5 10^3/uL (4.0-10.0)
[2023-05-10] MEDS: PARoxetine 20MG TABLET PO SCH (10:09)
[2023-05-10] MEDS: ENOXAPARIN 60MG/0.6ML SYRINGE (J1650 PER 10MG) SC SCH ×2 (10:11→20:49)
[2023-05-10] MEDS: VITAMIN D 1,000 INTERNATIONAL UNITS TABLET PO SCH (10:11)
[2023-05-10] MEDS: metFORMIN (GLUCOPHAGE) 1000MG TABLET PO SCH (10:11)
[2023-05-10] MEDS: VANICREAM MOISTURIZING SKIN CREAM 113GM TUBE TOP SCH ×2 (10:12→20:49)
[2023-05-10] MEDS: BUMETANIDE 1 MG TAB PO SCH ×2 (10:14→17:42)
[2023-05-10 20:00] VITALS: BP 131/89; TEMP 97.7; O2SAT 94
[2023-05-10] MEDS: ACETAMINOPHEN TAB 650MG DOSE (2X325MG) PO PRN (20:49)
[2023-05-11] MEDS: LEVOTHYROXINE 25MCG TABLET (0.025MG) PO SCH (05:50)
[2023-05-11 06:00] VITALS: BP 148/89; TEMP 98.1; O2SAT 90
[2023-05-11] MEDS: VITAMIN D 1,000 INTERNATIONAL UNITS TABLET PO SCH (09:59)
[2023-05-11] MEDS: metFORMIN (GLUCOPHAGE) 1000MG TABLET PO SCH (09:59)
[2023-05-11] MEDS: PARoxetine 20MG TABLET PO SCH (10:00)
[2023-05-11] MEDS: BUMETANIDE 1 MG TAB PO SCH ×2 (10:00→18:07)
[2023-05-11] MEDS: ENOXAPARIN 60MG/0.6ML SYRINGE (J1650 PER 10MG) SC SCH ×2 (10:00→21:22)
[2023-05-11 10:01] VITALS: BP 146/83; O2SAT 90
[2023-05-11] MEDS: VANICREAM MOISTURIZING SKIN CREAM 113GM TUBE TOP SCH ×2 (10:01→21:22)
[2023-05-11 14:00] VITALS: BP 139/82; TEMP 96.8; O2SAT 94
[2023-05-11] MEDS: ACETAMINOPHEN TAB 650MG DOSE (2X325MG) PO PRN (21:23)
[2023-05-12 05:43] VITALS: BP 140/76; TEMP 97.9; O2SAT 92
[2023-05-12] MEDS: LEVOTHYROXINE 25MCG TABLET (0.025MG) PO SCH (06:04)
[2023-05-12] MEDS: ENOXAPARIN 60MG/0.6ML SYRINGE (J1650 PER 10MG) SC SCH ×2 (09:30→20:35)
[2023-05-12] MEDS: metFORMIN (GLUCOPHAGE) 1000MG TABLET PO SCH (09:30)
[2023-05-12] MEDS: PARoxetine 20MG TABLET PO SCH (09:30)
[2023-05-12] MEDS: BUMETANIDE 1 MG TAB PO SCH ×2 (09:30→18:14)
[2023-05-12] MEDS: VITAMIN D 1,000 INTERNATIONAL UNITS TABLET PO SCH (09:30)
[2023-05-12] MEDS: VANICREAM MOISTURIZING SKIN CREAM 113GM TUBE TOP SCH ×2 (09:30→20:35)
[2023-05-12] MEDS: ACETAMINOPHEN TAB 650MG DOSE (2X325MG) PO PRN (20:35)
[2023-05-13 04:36] VITALS: BP 150/74; TEMP 97.7; O2SAT 93
[2023-05-13] MEDS: LEVOTHYROXINE 25MCG TABLET (0.025MG) PO SCH (06:15)
[2023-05-13] MEDS: ACETAMINOPHEN TAB 650MG DOSE (2X325MG) PO PRN ×2 (06:16→20:24)
[2023-05-13 07:14] LABS: HEMATOCRIT 44.2 % (42.0-52.0); HEMOGLOBIN 13.7 g/dl (13.5-17.5); MEAN CORPUSCULAR HEMOGLOBIN 29.1 pg (27.0-33.0); MEAN CORPUSCULAR VOLUME 93.8 fl (80.0-96.0); PLATELET COUNT, AUTOMATED 274 10^3/uL (150-450); RED BLOOD COUNT 4.71 10^6/uL (4.30-6.10); WHITE BLOOD COUNT 6.3 10^3/uL (4.0-10.0)
[2023-05-13] MEDS: PARoxetine 20MG TABLET PO SCH (08:51)
[2023-05-13] MEDS: VANICREAM MOISTURIZING SKIN CREAM 113GM TUBE TOP SCH ×2 (08:52→20:24)
[2023-05-13] MEDS: metFORMIN (GLUCOPHAGE) 1000MG TABLET PO SCH (08:52)
[2023-05-13] MEDS: BUMETANIDE 1 MG TAB PO SCH ×2 (08:52→17:18)
[2023-05-13] MEDS: VITAMIN D 1,000 INTERNATIONAL UNITS TABLET PO SCH (08:52)
[2023-05-13] MEDS: ENOXAPARIN 60MG/0.6ML SYRINGE (J1650 PER 10MG) SC SCH ×2 (08:52→20:23)
[2023-05-14 04:59] VITALS: BP 146/89; TEMP 97.9; O2SAT 92
[2023-05-14] MEDS: LEVOTHYROXINE 25MCG TABLET (0.025MG) PO SCH (05:33)
[2023-05-14] MEDS: VITAMIN D 1,000 INTERNATIONAL UNITS TABLET PO SCH (10:03)
[2023-05-14] MEDS: ENOXAPARIN 60MG/0.6ML SYRINGE (J1650 PER 10MG) SC SCH ×2 (10:03→20:41)
[2023-05-14] MEDS: BUMETANIDE 1 MG TAB PO SCH ×2 (10:04→17:39)
[2023-05-14] MEDS: metFORMIN (GLUCOPHAGE) 1000MG TABLET PO SCH (10:04)
[2023-05-14] MEDS: PARoxetine 20MG TABLET PO SCH (10:04)
[2023-05-14] MEDS: VANICREAM MOISTURIZING SKIN CREAM 113GM TUBE TOP SCH (10:05)
[2023-05-15] MEDS: ACETAMINOPHEN TAB 650MG DOSE (2X325MG) PO PRN ×2 (01:25→20:51)
[2023-05-15] MEDS: VANICREAM MOISTURIZING SKIN CREAM 113GM TUBE TOP SCH ×3 (01:26→20:50)
[2023-05-15] MEDS: MICONAZOLE 2 % POWDER (DESENEX) TOP PRN ×2 (01:59→20:51)
[2023-05-15 05:10] VITALS: BP 139/92; TEMP 98.1; O2SAT 93
[2023-05-15] MEDS: LEVOTHYROXINE 25MCG TABLET (0.025MG) PO SCH (05:33)
[2023-05-15] MEDS: ENOXAPARIN 60MG/0.6ML SYRINGE (J1650 PER 10MG) SC SCH ×2 (08:30→20:50)
[2023-05-15] MEDS: metFORMIN (GLUCOPHAGE) 1000MG TABLET PO SCH (08:30)
[2023-05-15] MEDS: PARoxetine 20MG TABLET PO SCH (08:30)
[2023-05-15] MEDS: VITAMIN D 1,000 INTERNATIONAL UNITS TABLET PO SCH (08:30)
[2023-05-15] MEDS: BUMETANIDE 1 MG TAB PO SCH ×2 (08:31→17:25)
[2023-05-16 04:50] VITALS: BP 135/89; TEMP 97.5; O2SAT 95
[2023-05-16] MEDS: LEVOTHYROXINE 25MCG TABLET (0.025MG) PO SCH (05:54)
[2023-05-16 06:22] LABS: HEMATOCRIT 44.5 % (42.0-52.0); HEMOGLOBIN 14.1 g/dl (13.5-17.5); MEAN CORPUSCULAR HEMOGLOBIN 29.3 pg (27.0-33.0); MEAN CORPUSCULAR HGB CONC 31.7 g/dl (32.0-36.5); MEAN CORPUSCULAR VOLUME 92.5 fl (80.0-96.0); PLATELET COUNT, AUTOMATED 268 10^3/uL (150-450); RED BLOOD COUNT 4.81 10^6/uL (4.30-6.10); WHITE BLOOD COUNT 6.5 10^3/uL (4.0-10.0)
[2023-05-16] MEDS: BUMETANIDE 1 MG TAB PO SCH ×2 (08:47→17:10)
[2023-05-16] MEDS: metFORMIN (GLUCOPHAGE) 1000MG TABLET PO SCH (08:47)
[2023-05-16] MEDS: VITAMIN D 1,000 INTERNATIONAL UNITS TABLET PO SCH (08:47)
[2023-05-16] MEDS: PARoxetine 20MG TABLET PO SCH (08:47)
[2023-05-16] MEDS: ENOXAPARIN 60MG/0.6ML SYRINGE (J1650 PER 10MG) SC SCH ×2 (08:51→21:26)
[2023-05-16] MEDS: VANICREAM MOISTURIZING SKIN CREAM 113GM TUBE TOP SCH ×2 (08:53→21:26)
[2023-05-16] MEDS: MICONAZOLE 2 % POWDER (DESENEX) TOP PRN ×2 (13:51→21:27)
[2023-05-16] MEDS: ACETAMINOPHEN TAB 650MG DOSE (2X325MG) PO PRN (21:27)
[2023-05-17 04:20] VITALS: BP 135/84; TEMP 97.2; O2SAT 94
[2023-05-17] MEDS: LEVOTHYROXINE 25MCG TABLET (0.025MG) PO SCH (06:05)
[2023-05-17] MEDS: metFORMIN (GLUCOPHAGE) 1000MG TABLET PO SCH (08:21)
[2023-05-17] MEDS: ENOXAPARIN 60MG/0.6ML SYRINGE (J1650 PER 10MG) SC SCH ×2 (08:21→20:35)
[2023-05-17] MEDS: VITAMIN D 1,000 INTERNATIONAL UNITS TABLET PO SCH (08:21)
[2023-05-17] MEDS: BUMETANIDE 1 MG TAB PO SCH ×2 (08:21→17:53)
[2023-05-17] MEDS: PARoxetine 20MG TABLET PO SCH (08:21)
[2023-05-17] MEDS: VANICREAM MOISTURIZING SKIN CREAM 113GM TUBE TOP SCH ×2 (08:22→20:35)
[2023-05-17] MEDS: ACETAMINOPHEN TAB 650MG DOSE (2X325MG) PO PRN (20:35)
[2023-05-18 04:20] VITALS: BP 139/84; TEMP 97.9; O2SAT 93
[2023-05-18] MEDS: LEVOTHYROXINE 25MCG TABLET (0.025MG) PO SCH (06:03)
[2023-05-18] MEDS: PARoxetine 20MG TABLET PO SCH (08:53)
[2023-05-18] MEDS: ENOXAPARIN 60MG/0.6ML SYRINGE (J1650 PER 10MG) SC SCH ×2 (08:53→20:40)
[2023-05-18] MEDS: metFORMIN (GLUCOPHAGE) 1000MG TABLET PO SCH (08:54)
[2023-05-18] MEDS: VANICREAM MOISTURIZING SKIN CREAM 113GM TUBE TOP SCH ×2 (08:54→20:40)
[2023-05-18] MEDS: VITAMIN D 1,000 INTERNATIONAL UNITS TABLET PO SCH (08:54)
[2023-05-18] MEDS: BUMETANIDE 1 MG TAB PO SCH ×2 (08:54→16:07)
[2023-05-18] MEDS: MICONAZOLE 2 % POWDER (DESENEX) TOP PRN (20:39)
[2023-05-18] MEDS: ACETAMINOPHEN TAB 650MG DOSE (2X325MG) PO PRN (20:40)
[2023-05-19 05:16] VITALS: BP 144/84; TEMP 97.9; O2SAT 93
[2023-05-19] MEDS: LEVOTHYROXINE 25MCG TABLET (0.025MG) PO SCH (05:22)
[2023-05-19] MEDS: BUMETANIDE 1 MG TAB PO SCH ×2 (08:00→16:31)
[2023-05-19] MEDS: PARoxetine 20MG TABLET PO SCH (08:00)
[2023-05-19] MEDS: VITAMIN D 1,000 INTERNATIONAL UNITS TABLET PO SCH (08:00)
[2023-05-19] MEDS: metFORMIN (GLUCOPHAGE) 1000MG TABLET PO SCH (08:00)
[2023-05-19] MEDS: ENOXAPARIN 60MG/0.6ML SYRINGE (J1650 PER 10MG) SC SCH ×2 (08:01→20:51)
[2023-05-19] MEDS: VANICREAM MOISTURIZING SKIN CREAM 113GM TUBE TOP SCH ×2 (08:01→20:51)
[2023-05-19] MEDS: MICONAZOLE 2 % POWDER (DESENEX) TOP PRN (20:51)
[2023-05-19] MEDS: ACETAMINOPHEN TAB 650MG DOSE (2X325MG) PO PRN (20:52)
[2023-05-20] MEDS: LEVOTHYROXINE 25MCG TABLET (0.025MG) PO SCH (05:14)
[2023-05-20 05:19] VITALS: BP 146/88; TEMP 97.7; O2SAT 94
[2023-05-20] MEDS: metFORMIN (GLUCOPHAGE) 1000MG TABLET PO SCH (09:19)
[2023-05-20] MEDS: ENOXAPARIN 60MG/0.6ML SYRINGE (J1650 PER 10MG) SC SCH ×2 (09:19→20:00)
[2023-05-20] MEDS: BUMETANIDE 1 MG TAB PO SCH ×2 (09:20→17:20)
[2023-05-20] MEDS: PARoxetine 20MG TABLET PO SCH (09:20)
[2023-05-20] MEDS: VITAMIN D 1,000 INTERNATIONAL UNITS TABLET PO SCH (09:21)
[2023-05-20] MEDS: VANICREAM MOISTURIZING SKIN CREAM 113GM TUBE TOP SCH ×2 (09:21→20:00)
[2023-05-20] MEDS: MICONAZOLE 2 % POWDER (DESENEX) TOP PRN ×2 (09:21→20:01)
[2023-05-20] MEDS: ACETAMINOPHEN TAB 650MG DOSE (2X325MG) PO PRN (20:01)
[2023-05-21] MEDS: LEVOTHYROXINE 25MCG TABLET (0.025MG) PO SCH (05:09)
[2023-05-21 05:54] VITALS: BP 140/83; TEMP 97.2; O2SAT 92
[2023-05-21] MEDS: BUMETANIDE 1 MG TAB PO SCH ×2 (09:00→17:00)
[2023-05-21] MEDS: VITAMIN D 1,000 INTERNATIONAL UNITS TABLET PO SCH (09:14)
[2023-05-21] MEDS: PARoxetine 20MG TABLET PO SCH (09:15)
[2023-05-21] MEDS: ENOXAPARIN 60MG/0.6ML SYRINGE (J1650 PER 10MG) SC SCH ×2 (09:15→20:41)
[2023-05-21] MEDS: metFORMIN (GLUCOPHAGE) 1000MG TABLET PO SCH (09:15)
[2023-05-21] MEDS: VANICREAM MOISTURIZING SKIN CREAM 113GM TUBE TOP SCH ×2 (09:16→20:41)
[2023-05-22 05:05] VITALS: BP 141/98; TEMP 97.7; O2SAT 94
[2023-05-22] MEDS: LEVOTHYROXINE 25MCG TABLET (0.025MG) PO SCH (05:41)
[2023-05-22] MEDS: metFORMIN (GLUCOPHAGE) 1000MG TABLET PO SCH (08:18)
[2023-05-22] MEDS: VITAMIN D 1,000 INTERNATIONAL UNITS TABLET PO SCH (08:18)
[2023-05-22] MEDS: ENOXAPARIN 60MG/0.6ML SYRINGE (J1650 PER 10MG) SC SCH ×2 (08:18→21:07)
[2023-05-22] MEDS: PARoxetine 20MG TABLET PO SCH (08:18)
[2023-05-22] MEDS: BUMETANIDE 1 MG TAB PO SCH ×2 (08:19→16:16)
[2023-05-22] MEDS: VANICREAM MOISTURIZING SKIN CREAM 113GM TUBE TOP SCH ×2 (08:19→21:07)
[2023-05-22] MEDS: ACETAMINOPHEN TAB 650MG DOSE (2X325MG) PO PRN (21:19)
[2023-05-23] MEDS: LEVOTHYROXINE 25MCG TABLET (0.025MG) PO SCH (05:43)
[2023-05-23 05:45] VITALS: BP 132/86; TEMP 97.2; O2SAT 93
[2023-05-23] MEDS: BUMETANIDE 1 MG TAB PO SCH ×2 (08:16→16:08)
[2023-05-23] MEDS: ENOXAPARIN 60MG/0.6ML SYRINGE (J1650 PER 10MG) SC SCH ×2 (08:16→20:07)
[2023-05-23] MEDS: metFORMIN (GLUCOPHAGE) 1000MG TABLET PO SCH (08:16)
[2023-05-23] MEDS: PARoxetine 20MG TABLET PO SCH (08:16)
[2023-05-23] MEDS: VITAMIN D 1,000 INTERNATIONAL UNITS TABLET PO SCH (08:16)
[2023-05-23] MEDS: VANICREAM MOISTURIZING SKIN CREAM 113GM TUBE TOP SCH ×2 (08:17→20:07)
[2023-05-24] MEDS: LEVOTHYROXINE 25MCG TABLET (0.025MG) PO SCH (05:07)
[2023-05-24 05:45] VITALS: BP 132/85; TEMP 97.5; O2SAT 95
[2023-05-24] MEDS: PARoxetine 20MG TABLET PO SCH (08:08)
[2023-05-24] MEDS: metFORMIN (GLUCOPHAGE) 1000MG TABLET PO SCH (08:08)
[2023-05-24] MEDS: BUMETANIDE 1 MG TAB PO SCH ×2 (08:08→17:01)
[2023-05-24] MEDS: VANICREAM MOISTURIZING SKIN CREAM 113GM TUBE TOP SCH ×2 (08:09→20:02)
[2023-05-24] MEDS: ENOXAPARIN 60MG/0.6ML SYRINGE (J1650 PER 10MG) SC SCH ×2 (08:09→20:02)
[2023-05-24] MEDS: VITAMIN D 1,000 INTERNATIONAL UNITS TABLET PO SCH (08:09)
[2023-05-25] MEDS: LEVOTHYROXINE 25MCG TABLET (0.025MG) PO SCH (05:37)
[2023-05-25 06:00] VITALS: BP 143/95; TEMP 97.7; O2SAT 92
[2023-05-25] MEDS: VANICREAM MOISTURIZING SKIN CREAM 113GM TUBE TOP SCH ×2 (08:15→21:23)
[2023-05-25] MEDS: VITAMIN D 1,000 INTERNATIONAL UNITS TABLET PO SCH (08:15)
[2023-05-25] MEDS: ENOXAPARIN 60MG/0.6ML SYRINGE (J1650 PER 10MG) SC SCH ×2 (08:15→21:23)
[2023-05-25] MEDS: metFORMIN (GLUCOPHAGE) 1000MG TABLET PO SCH (08:15)
[2023-05-25] MEDS: PARoxetine 20MG TABLET PO SCH (08:15)
[2023-05-25] MEDS: BUMETANIDE 1 MG TAB PO SCH ×2 (08:16→16:25)
[2023-05-25] MEDS: ACETAMINOPHEN TAB 650MG DOSE (2X325MG) PO PRN (21:25)
[2023-05-26] MEDS: LEVOTHYROXINE 25MCG TABLET (0.025MG) PO SCH (05:39)
[2023-05-26 06:03] VITALS: BP 132/94; TEMP 97.5; O2SAT 94
[2023-05-26] MEDS: PARoxetine 20MG TABLET PO SCH (08:57)
[2023-05-26] MEDS: VITAMIN D 1,000 INTERNATIONAL UNITS TABLET PO SCH (08:57)
[2023-05-26] MEDS: BUMETANIDE 1 MG TAB PO SCH ×2 (08:57→16:52)
[2023-05-26] MEDS: ENOXAPARIN 60MG/0.6ML SYRINGE (J1650 PER 10MG) SC SCH ×2 (08:57→21:34)
[2023-05-26] MEDS: metFORMIN (GLUCOPHAGE) 1000MG TABLET PO SCH (08:57)
[2023-05-26] MEDS: VANICREAM MOISTURIZING SKIN CREAM 113GM TUBE TOP SCH ×2 (08:58→21:34)
[2023-05-26] MEDS: ACETAMINOPHEN TAB 650MG DOSE (2X325MG) PO PRN (21:34)
[2023-05-27] MEDS: LEVOTHYROXINE 25MCG TABLET (0.025MG) PO SCH (05:44)
[2023-05-27 06:11] VITALS: BP 131/82; TEMP 97.2; O2SAT 95
[2023-05-27] MEDS: PARoxetine 20MG TABLET PO SCH (09:38)
[2023-05-27] MEDS: metFORMIN (GLUCOPHAGE) 1000MG TABLET PO SCH (09:38)
[2023-05-27] MEDS: ENOXAPARIN 60MG/0.6ML SYRINGE (J1650 PER 10MG) SC SCH ×2 (09:39→21:57)
[2023-05-27] MEDS: VANICREAM MOISTURIZING SKIN CREAM 113GM TUBE TOP SCH ×2 (09:39→21:56)
[2023-05-27] MEDS: VITAMIN D 1,000 INTERNATIONAL UNITS TABLET PO SCH (09:39)
[2023-05-27] MEDS: BUMETANIDE 1 MG TAB PO SCH ×2 (09:40→16:24)
[2023-05-27 16:26] VITALS: BP 137/93
[2023-05-28 06:00] VITALS: BP 140/89; TEMP 97.7; O2SAT 92
[2023-05-28] MEDS: LEVOTHYROXINE 25MCG TABLET (0.025MG) PO SCH (06:07)
[2023-05-28] MEDS: metFORMIN (GLUCOPHAGE) 1000MG TABLET PO SCH (08:18)
[2023-05-28] MEDS: PARoxetine 20MG TABLET PO SCH (08:18)
[2023-05-28] MEDS: ENOXAPARIN 60MG/0.6ML SYRINGE (J1650 PER 10MG) SC SCH ×2 (08:18→21:03)
[2023-05-28] MEDS: VITAMIN D 1,000 INTERNATIONAL UNITS TABLET PO SCH (08:18)
[2023-05-28] MEDS: BUMETANIDE 1 MG TAB PO SCH ×2 (08:18→16:21)
[2023-05-28] MEDS: VANICREAM MOISTURIZING SKIN CREAM 113GM TUBE TOP SCH ×2 (08:19→21:04)
[2023-05-28 16:23] VITALS: BP 154/92
[2023-05-28] MEDS: ACETAMINOPHEN TAB 650MG DOSE (2X325MG) PO PRN (21:03)
[2023-05-28] MEDS: MICONAZOLE 2 % POWDER (DESENEX) TOP PRN (21:05)
[2023-05-29] MEDS: LEVOTHYROXINE 25MCG TABLET (0.025MG) PO SCH (05:32)
[2023-05-29 05:41] VITALS: BP 154/89; TEMP 97.5; O2SAT 94
[2023-05-29] MEDS: ENOXAPARIN 60MG/0.6ML SYRINGE (J1650 PER 10MG) SC SCH ×2 (09:08→21:03)
[2023-05-29] MEDS: VITAMIN D 1,000 INTERNATIONAL UNITS TABLET PO SCH (09:09)
[2023-05-29] MEDS: PARoxetine 20MG TABLET PO SCH (09:09)
[2023-05-29] MEDS: BUMETANIDE 1 MG TAB PO SCH ×2 (09:09→17:56)
[2023-05-29] MEDS: metFORMIN (GLUCOPHAGE) 1000MG TABLET PO SCH (09:09)
[2023-05-29] MEDS: VANICREAM MOISTURIZING SKIN CREAM 113GM TUBE TOP SCH ×2 (09:10→21:04)
[2023-05-29] MEDS: ACETAMINOPHEN TAB 650MG DOSE (2X325MG) PO PRN (21:03)
[2023-05-29] MEDS: MICONAZOLE 2 % POWDER (DESENEX) TOP PRN (21:04)
[2023-05-30] MEDS: LEVOTHYROXINE 25MCG TABLET (0.025MG) PO SCH (05:34)
[2023-05-30 05:50] VITALS: BP 133/93; TEMP 97.5; O2SAT 97
[2023-05-30] MEDS: metFORMIN (GLUCOPHAGE) 1000MG TABLET PO SCH (08:51)
[2023-05-30] MEDS: PARoxetine 20MG TABLET PO SCH (08:51)
[2023-05-30] MEDS: VITAMIN D 1,000 INTERNATIONAL UNITS TABLET PO SCH (08:51)
[2023-05-30] MEDS: BUMETANIDE 1 MG TAB PO SCH ×2 (08:51→18:01)
[2023-05-30] MEDS: ENOXAPARIN 60MG/0.6ML SYRINGE (J1650 PER 10MG) SC SCH ×2 (08:52→21:07)
[2023-05-30] MEDS: VANICREAM MOISTURIZING SKIN CREAM 113GM TUBE TOP SCH ×2 (08:53→21:07)
[2023-05-30 21:07] VITALS: BP 144/90; TEMP 97.7; O2SAT 95
[2023-05-31 05:42] VITALS: BP_SYST 127; BP_SYST 138; BP_DIAS 74; BP_DIAS 81; TEMP 97; TEMP 97.5; O2SAT 93; O2SAT 94
[2023-05-31] MEDS: LEVOTHYROXINE 25MCG TABLET (0.025MG) PO SCH (05:50)
[2023-05-31] MEDS: VITAMIN D 1,000 INTERNATIONAL UNITS TABLET PO SCH (08:18)
[2023-05-31] MEDS: PARoxetine 20MG TABLET PO SCH (08:18)
[2023-05-31] MEDS: metFORMIN (GLUCOPHAGE) 1000MG TABLET PO SCH (08:18)
[2023-05-31] MEDS: BUMETANIDE 1 MG TAB PO SCH ×2 (08:19→16:45)
[2023-05-31] MEDS: ENOXAPARIN 60MG/0.6ML SYRINGE (J1650 PER 10MG) SC SCH ×2 (08:19→20:57)
[2023-05-31] MEDS: VANICREAM MOISTURIZING SKIN CREAM 113GM TUBE TOP SCH ×2 (08:20→20:57)
[2023-06-01 05:54] VITALS: BP 152/88; TEMP 97.2; O2SAT 95
[2023-06-01] MEDS: LEVOTHYROXINE 25MCG TABLET (0.025MG) PO SCH (06:01)
[2023-06-01] MEDS: PARoxetine 20MG TABLET PO SCH (09:01)
[2023-06-01] MEDS: VITAMIN D 1,000 INTERNATIONAL UNITS TABLET PO SCH (09:01)
[2023-06-01] MEDS: BUMETANIDE 1 MG TAB PO SCH ×2 (09:01→16:44)
[2023-06-01] MEDS: metFORMIN (GLUCOPHAGE) 1000MG TABLET PO SCH (09:01)
[2023-06-01] MEDS: VANICREAM MOISTURIZING SKIN CREAM 113GM TUBE TOP SCH ×2 (09:02→20:57)
[2023-06-01] MEDS: MICONAZOLE 2 % POWDER (DESENEX) TOP PRN ×2 (09:02→20:57)
[2023-06-01] MEDS: ENOXAPARIN 60MG/0.6ML SYRINGE (J1650 PER 10MG) SC SCH ×2 (09:02→20:56)
[2023-06-01 16:44] VITALS: BP 143/88
[2023-06-01] MEDS: ACETAMINOPHEN TAB 650MG DOSE (2X325MG) PO PRN (21:05)
[2023-06-02] MEDS: LEVOTHYROXINE 25MCG TABLET (0.025MG) PO SCH (05:47)
[2023-06-02 06:00] VITALS: BP 158/85; TEMP 97.5; O2SAT 96
[2023-06-02] MEDS: ENOXAPARIN 60MG/0.6ML SYRINGE (J1650 PER 10MG) SC SCH ×2 (09:41→21:09)
[2023-06-02] MEDS: BUMETANIDE 1 MG TAB PO SCH ×2 (09:41→15:58)
[2023-06-02] MEDS: VITAMIN D 1,000 INTERNATIONAL UNITS TABLET PO SCH (09:41)
[2023-06-02] MEDS: PARoxetine 20MG TABLET PO SCH (09:41)
[2023-06-02] MEDS: metFORMIN (GLUCOPHAGE) 1000MG TABLET PO SCH (09:41)
[2023-06-02] MEDS: VANICREAM MOISTURIZING SKIN CREAM 113GM TUBE TOP SCH ×2 (09:42→21:11)
[2023-06-02] MEDS: LIDOCAINE 5% (LIDODERM) PATCH TD SCH (15:57)
[2023-06-02] MEDS: MICONAZOLE 2 % POWDER (DESENEX) TOP PRN (21:11)
[2023-06-03] MEDS: ACETAMINOPHEN TAB 650MG DOSE (2X325MG) PO PRN (00:49)
[2023-06-03] MEDS: LEVOTHYROXINE 25MCG TABLET (0.025MG) PO SCH (05:35)
[2023-06-03 06:00] VITALS: BP 157/85; TEMP 98.1; O2SAT 96
[2023-06-03 07:57] LABS: HEMATOCRIT 39.3 % (42.0-52.0); MEAN CORPUSCULAR HGB CONC 33.1 g/dl (32.0-36.5); MEAN CORPUSCULAR VOLUME 90.6 fl (80.0-96.0); PLATELET COUNT, AUTOMATED 280 10^3/uL (150-450); RED BLOOD COUNT 4.34 10^6/uL (4.30-6.10); WHITE BLOOD COUNT 7.6 10^3/uL (4.0-10.0)
[2023-06-03] MEDS: ENOXAPARIN 60MG/0.6ML SYRINGE (J1650 PER 10MG) SC SCH ×2 (08:03→20:55)
[2023-06-03] MEDS: BUMETANIDE 1 MG TAB PO SCH ×2 (08:04→16:42)
[2023-06-03] MEDS: metFORMIN (GLUCOPHAGE) 1000MG TABLET PO SCH (08:04)
[2023-06-03] MEDS: VITAMIN D 1,000 INTERNATIONAL UNITS TABLET PO SCH (08:04)
[2023-06-03] MEDS: PARoxetine 20MG TABLET PO SCH (08:04)
[2023-06-03] MEDS: VANICREAM MOISTURIZING SKIN CREAM 113GM TUBE TOP SCH ×2 (08:05→20:56)
[2023-06-03] MEDS: LIDOCAINE 5% (LIDODERM) PATCH TD SCH ×2 (08:05→12:02)
[2023-06-03] MEDS: MICONAZOLE 2 % POWDER (DESENEX) TOP PRN (20:56)
[2023-06-04 04:50] VITALS: BP 150/82; TEMP 97.3; O2SAT 94
[2023-06-04] MEDS: LEVOTHYROXINE 25MCG TABLET (0.025MG) PO SCH (05:32)
[2023-06-04] MEDS: LIDOCAINE 5% (LIDODERM) PATCH TD SCH (09:04)
[2023-06-04] MEDS: VITAMIN D 1,000 INTERNATIONAL UNITS TABLET PO SCH (09:04)
[2023-06-04] MEDS: ATORVASTATIN 20 MG TAB PO SCH (09:04)
[2023-06-04] MEDS: PARoxetine 20MG TABLET PO SCH (09:04)
[2023-06-04] MEDS: ENOXAPARIN 60MG/0.6ML SYRINGE (J1650 PER 10MG) SC SCH ×2 (09:04→21:40)
[2023-06-04] MEDS: BUMETANIDE 1 MG TAB PO SCH ×2 (09:05→17:37)
[2023-06-04] MEDS: VANICREAM MOISTURIZING SKIN CREAM 113GM TUBE TOP SCH ×2 (09:05→21:40)
[2023-06-04 09:06] VITALS: BP 157/90
[2023-06-04] MEDS: CHLORTHALIDONE 25 MG TAB PO SCH (10:43)
[2023-06-05 05:28] VITALS: BP 157/90; TEMP 97.7; O2SAT 94
[2023-06-05] MEDS: LEVOTHYROXINE 25MCG TABLET (0.025MG) PO SCH (05:56)
[2023-06-05 08:32] LABS: BLOOD UREA NITROGEN 29 MG/DL (7-21); CHLORIDE LEVEL 99 MEQ/L (98-107); GLOMERULAR FILTRATION RATE > 60.0 (>56); GLUCOSE, FASTING 104 MG/DL (70-99); POTASSIUM SERUM 4.7 MEQ/L (3.6-5.0); SODIUM LEVEL 139 MEQ/L (134-153)
[2023-06-05 08:33] LABS: ALKALINE PHOSPHATASE 78 U/L (40-129); ALT/SGPT 44 U/L (1-41); AST/SGOT 33 U/L (5-40); BILIRUBIN,TOTAL < 0.7 MG/DL (0.2-1.3); CALCIUM LEVEL 9.6 MG/DL (8.4-10.2); CARBON DIOXIDE LEVEL 27 MEQ/L (22-30); CHOLESTEROL LEVEL 170 MG/DL (131-200); CHOLESTEROL RISK RATIO 4.857 (<5); HDL CHOLESTEROL 35 MG/DL (29-86); NON-HDL-C 135 MG/DL; TRIGLYCERIDES LEVEL 215 MG/DL (35-160)
[2023-06-05 08:34] LABS: ALBUMIN 3.3 G/DL (3.9-5.0); TOTAL PROTEIN 6.7 G/DL (6.3-8.2)
[2023-06-05] MEDS: ATORVASTATIN 20 MG TAB PO SCH (08:58)
[2023-06-05] MEDS: VITAMIN D 1,000 INTERNATIONAL UNITS TABLET PO SCH (08:58)
[2023-06-05] MEDS: ENOXAPARIN 60MG/0.6ML SYRINGE (J1650 PER 10MG) SC SCH ×2 (08:58→20:11)
[2023-06-05] MEDS: PARoxetine 20MG TABLET PO SCH (08:58)
[2023-06-05] MEDS: LIDOCAINE 5% (LIDODERM) PATCH TD SCH (08:59)
[2023-06-05] MEDS: CHLORTHALIDONE 25 MG TAB PO SCH (08:59)
[2023-06-05] MEDS: VANICREAM MOISTURIZING SKIN CREAM 113GM TUBE TOP SCH ×2 (09:00→20:12)
[2023-06-05] MEDS: BUMETANIDE 1 MG TAB PO SCH ×2 (09:00→16:36)
[2023-06-05] MEDS: MICONAZOLE 2 % POWDER (DESENEX) TOP PRN (09:00)
[2023-06-05 09:01] VITALS: BP 149/86
[2023-06-05 16:36] VITALS: BP 142/85
[2023-06-06] MEDS: LEVOTHYROXINE 25MCG TABLET (0.025MG) PO SCH (05:21)
[2023-06-06 06:00] VITALS: BP 142/86; TEMP 97.3; O2SAT 95
[2023-06-06] MEDS: PARoxetine 20MG TABLET PO SCH (08:20)
[2023-06-06] MEDS: ENOXAPARIN 60MG/0.6ML SYRINGE (J1650 PER 10MG) SC SCH ×2 (08:20→20:22)
[2023-06-06] MEDS: ATORVASTATIN 20 MG TAB PO SCH (08:20)
[2023-06-06] MEDS: VITAMIN D 1,000 INTERNATIONAL UNITS TABLET PO SCH (08:20)
[2023-06-06] MEDS: LIDOCAINE 5% (LIDODERM) PATCH TD SCH (08:20)
[2023-06-06] MEDS: CHLORTHALIDONE 25 MG TAB PO SCH (08:22)
[2023-06-06] MEDS: VANICREAM MOISTURIZING SKIN CREAM 113GM TUBE TOP SCH ×2 (08:22→20:23)
[2023-06-06] MEDS: BUMETANIDE 1 MG TAB PO SCH ×2 (08:22→17:22)
[2023-06-06 08:23] VITALS: BP 118/81
[2023-06-06 17:24] VITALS: BP 150/93
[2023-06-06] MEDS: ACETAMINOPHEN TAB 650MG DOSE (2X325MG) PO PRN (20:22)
[2023-06-06] MEDS: MICONAZOLE 2 % POWDER (DESENEX) TOP PRN (20:23)
[2023-06-07 05:30] VITALS: BP 154/91; TEMP 97.7; O2SAT 96
[2023-06-07 05:39] VITALS: BP 130/96
[2023-06-07] MEDS: LEVOTHYROXINE 25MCG TABLET (0.025MG) PO SCH (05:41)
[2023-06-07] MEDS: CHLORTHALIDONE 25 MG TAB PO SCH (08:13)
[2023-06-07] MEDS: ATORVASTATIN 20 MG TAB PO SCH (08:13)
[2023-06-07] MEDS: ENOXAPARIN 60MG/0.6ML SYRINGE (J1650 PER 10MG) SC SCH ×2 (08:13→20:05)
[2023-06-07] MEDS: BUMETANIDE 1 MG TAB PO SCH ×2 (08:13→17:22)
[2023-06-07] MEDS: PARoxetine 20MG TABLET PO SCH (08:13)
[2023-06-07] MEDS: LIDOCAINE 5% (LIDODERM) PATCH TD SCH (08:14)
[2023-06-07] MEDS: VITAMIN D 1,000 INTERNATIONAL UNITS TABLET PO SCH (08:14)
[2023-06-07] MEDS: VANICREAM MOISTURIZING SKIN CREAM 113GM TUBE TOP SCH ×2 (08:16→20:05)
[2023-06-08] MEDS: LEVOTHYROXINE 25MCG TABLET (0.025MG) PO SCH (05:35)
[2023-06-08 06:00] VITALS: BP 112/72; TEMP 97.5; O2SAT 94
[2023-06-08] MEDS: ENOXAPARIN 60MG/0.6ML SYRINGE (J1650 PER 10MG) SC SCH ×2 (08:14→22:01)
[2023-06-08] MEDS: VITAMIN D 1,000 INTERNATIONAL UNITS TABLET PO SCH (08:15)
[2023-06-08] MEDS: BUMETANIDE 1 MG TAB PO SCH ×2 (08:16→17:36)
[2023-06-08] MEDS: CHLORTHALIDONE 25 MG TAB PO SCH (08:16)
[2023-06-08] MEDS: PARoxetine 20MG TABLET PO SCH (08:16)
[2023-06-08] MEDS: ATORVASTATIN 20 MG TAB PO SCH (08:16)
[2023-06-08 08:17] VITALS: BP 117/75
[2023-06-08] MEDS: VANICREAM MOISTURIZING SKIN CREAM 113GM TUBE TOP SCH ×2 (09:16→21:00)
[2023-06-08] MEDS: LIDOCAINE 5% (LIDODERM) PATCH TD SCH (09:17)
[2023-06-08 17:27] VITALS: BP 133/86
[2023-06-09 05:22] VITALS: BP 138/90; TEMP 97.5; O2SAT 94
[2023-06-09] MEDS: LEVOTHYROXINE 25MCG TABLET (0.025MG) PO SCH (05:56)
[2023-06-09] MEDS: VITAMIN D 1,000 INTERNATIONAL UNITS TABLET PO SCH (08:39)
[2023-06-09] MEDS: PARoxetine 20MG TABLET PO SCH (08:39)
[2023-06-09] MEDS: ATORVASTATIN 20 MG TAB PO SCH (08:39)
[2023-06-09] MEDS: CHLORTHALIDONE 25 MG TAB PO SCH (08:39)
[2023-06-09] MEDS: LIDOCAINE 5% (LIDODERM) PATCH TD SCH (08:40)
[2023-06-09] MEDS: VANICREAM MOISTURIZING SKIN CREAM 113GM TUBE TOP SCH ×2 (08:40→21:37)
[2023-06-09] MEDS: ENOXAPARIN 60MG/0.6ML SYRINGE (J1650 PER 10MG) SC SCH ×2 (08:40→21:37)
[2023-06-09] MEDS: BUMETANIDE 1 MG TAB PO SCH ×2 (08:40→17:33)
[2023-06-09 08:43] VITALS: BP 129/83
[2023-06-09 17:34] VITALS: BP 134/82
[2023-06-10] MEDS: LEVOTHYROXINE 25MCG TABLET (0.025MG) PO SCH (05:55)
[2023-06-10 05:58] VITALS: BP 150/88; TEMP 97.3; O2SAT 97
[2023-06-10] MEDS: ENOXAPARIN 60MG/0.6ML SYRINGE (J1650 PER 10MG) SC SCH ×2 (08:39→21:14)
[2023-06-10] MEDS: BUMETANIDE 1 MG TAB PO SCH ×2 (08:39→17:31)
[2023-06-10] MEDS: LIDOCAINE 5% (LIDODERM) PATCH TD SCH (08:39)
[2023-06-10] MEDS: PARoxetine 20MG TABLET PO SCH (08:39)
[2023-06-10] MEDS: CHLORTHALIDONE 25 MG TAB PO SCH (08:39)
[2023-06-10] MEDS: VITAMIN D 1,000 INTERNATIONAL UNITS TABLET PO SCH (08:39)
[2023-06-10] MEDS: ATORVASTATIN 20 MG TAB PO SCH (08:39)
[2023-06-10] MEDS: VANICREAM MOISTURIZING SKIN CREAM 113GM TUBE TOP SCH ×2 (08:40→21:14)
[2023-06-10] MEDS: ACETAMINOPHEN TAB 650MG DOSE (2X325MG) PO PRN (21:14)
[2023-06-11] MEDS: LEVOTHYROXINE 25MCG TABLET (0.025MG) PO SCH (05:39)
[2023-06-11 05:41] VITALS: BP 146/88; TEMP 97.6; O2SAT 97
[2023-06-11] MEDS: PARoxetine 20MG TABLET PO SCH (08:30)
[2023-06-11] MEDS: BUMETANIDE 1 MG TAB PO SCH ×2 (08:30→17:14)
[2023-06-11] MEDS: CHLORTHALIDONE 25 MG TAB PO SCH (08:30)
[2023-06-11] MEDS: ATORVASTATIN 20 MG TAB PO SCH (08:30)
[2023-06-11] MEDS: VITAMIN D 1,000 INTERNATIONAL UNITS TABLET PO SCH (08:30)
[2023-06-11] MEDS: ENOXAPARIN 60MG/0.6ML SYRINGE (J1650 PER 10MG) SC SCH ×2 (08:30→20:21)
[2023-06-11] MEDS: LIDOCAINE 5% (LIDODERM) PATCH TD SCH (08:31)
[2023-06-11] MEDS: VANICREAM MOISTURIZING SKIN CREAM 113GM TUBE TOP SCH ×2 (08:31→20:22)
[2023-06-11 17:12] VITALS: BP 142/86
[2023-06-11] MEDS: ACETAMINOPHEN TAB 650MG DOSE (2X325MG) PO PRN (20:21)
[2023-06-11] MEDS: MICONAZOLE 2 % POWDER (DESENEX) TOP PRN (20:22)
[2023-06-12 05:30] VITALS: BP 137/84; TEMP 97.3; O2SAT 94
[2023-06-12] MEDS: LEVOTHYROXINE 25MCG TABLET (0.025MG) PO SCH (05:30)
[2023-06-12] MEDS: PARoxetine 20MG TABLET PO SCH (09:52)
[2023-06-12] MEDS: ENOXAPARIN 60MG/0.6ML SYRINGE (J1650 PER 10MG) SC SCH ×2 (09:52→20:00)
[2023-06-12] MEDS: CHLORTHALIDONE 25 MG TAB PO SCH (09:53)
[2023-06-12] MEDS: VITAMIN D 1,000 INTERNATIONAL UNITS TABLET PO SCH (09:53)
[2023-06-12] MEDS: LIDOCAINE 5% (LIDODERM) PATCH TD SCH (09:53)
[2023-06-12] MEDS: ATORVASTATIN 20 MG TAB PO SCH (09:53)
[2023-06-12] MEDS: BUMETANIDE 1 MG TAB PO SCH ×2 (09:53→16:05)
[2023-06-12] MEDS: VANICREAM MOISTURIZING SKIN CREAM 113GM TUBE TOP SCH ×2 (09:54→20:04)
[2023-06-12] MEDS: SENOKOT S TAB PO SCH ×2 (13:56→20:00)
[2023-06-12 16:03] VITALS: BP 146/83
[2023-06-12] MEDS: ACETAMINOPHEN TAB 650MG DOSE (2X325MG) PO PRN (20:01)
[2023-06-12] MEDS: MICONAZOLE 2 % POWDER (DESENEX) TOP PRN (20:05)
[2023-06-13 04:40] VITALS: BP 138/84; TEMP 97.5; O2SAT 93
[2023-06-13] MEDS: LEVOTHYROXINE 25MCG TABLET (0.025MG) PO SCH (05:29)
[2023-06-13] MEDS: PARoxetine 20MG TABLET PO SCH (08:25)
[2023-06-13] MEDS: ATORVASTATIN 20 MG TAB PO SCH (08:25)
[2023-06-13] MEDS: ENOXAPARIN 60MG/0.6ML SYRINGE (J1650 PER 10MG) SC SCH ×2 (08:25→19:46)
[2023-06-13] MEDS: VITAMIN D 1,000 INTERNATIONAL UNITS TABLET PO SCH (08:26)
[2023-06-13] MEDS: CHLORTHALIDONE 25 MG TAB PO SCH (08:31)
[2023-06-13] MEDS: BUMETANIDE 1 MG TAB PO SCH ×2 (08:31→16:34)
[2023-06-13 08:32] VITALS: BP 114/78
[2023-06-13] MEDS: SENOKOT S TAB PO SCH ×2 (08:33→19:46)
[2023-06-13] MEDS: MICONAZOLE 2 % POWDER (DESENEX) TOP PRN (10:18)
[2023-06-13] MEDS: LIDOCAINE 5% (LIDODERM) PATCH TD SCH (10:18)
[2023-06-13] MEDS: VANICREAM MOISTURIZING SKIN CREAM 113GM TUBE TOP SCH ×2 (10:18→19:47)
[2023-06-13 16:35] VITALS: BP 118/78
[2023-06-14] MEDS: LEVOTHYROXINE 25MCG TABLET (0.025MG) PO SCH (05:28)
[2023-06-14 06:25] VITALS: BP 149/85; TEMP 97.2; O2SAT 96
[2023-06-14] MEDS: CHLORTHALIDONE 25 MG TAB PO SCH (09:02)
[2023-06-14] MEDS: SENOKOT S TAB PO SCH ×2 (09:02→20:54)
[2023-06-14] MEDS: ATORVASTATIN 20 MG TAB PO SCH (09:02)
[2023-06-14] MEDS: VITAMIN D 1,000 INTERNATIONAL UNITS TABLET PO SCH (09:02)
[2023-06-14] MEDS: ENOXAPARIN 60MG/0.6ML SYRINGE (J1650 PER 10MG) SC SCH ×2 (09:02→20:54)
[2023-06-14] MEDS: PARoxetine 20MG TABLET PO SCH (09:02)
[2023-06-14] MEDS: BUMETANIDE 1 MG TAB PO SCH ×2 (09:03→16:49)
[2023-06-14] MEDS: VANICREAM MOISTURIZING SKIN CREAM 113GM TUBE TOP SCH ×2 (10:23→20:55)
[2023-06-14] MEDS: LIDOCAINE 5% (LIDODERM) PATCH TD SCH (10:23)
[2023-06-14] MEDS: MICONAZOLE 2 % POWDER (DESENEX) TOP PRN ×2 (10:28→20:55)
[2023-06-14] MEDS: ACETAMINOPHEN TAB 650MG DOSE (2X325MG) PO PRN (20:55)
[2023-06-15] MEDS: LEVOTHYROXINE 25MCG TABLET (0.025MG) PO SCH (05:01)
[2023-06-15 05:20] VITALS: BP 150/93; TEMP 96.9; O2SAT 97
[2023-06-15] MEDS: PARoxetine 20MG TABLET PO SCH (08:56)
[2023-06-15] MEDS: BUMETANIDE 1 MG TAB PO SCH ×2 (08:56→17:37)
[2023-06-15] MEDS: VITAMIN D 1,000 INTERNATIONAL UNITS TABLET PO SCH (08:56)
[2023-06-15] MEDS: ENOXAPARIN 60MG/0.6ML SYRINGE (J1650 PER 10MG) SC SCH ×2 (08:56→21:07)
[2023-06-15] MEDS: SENOKOT S TAB PO SCH ×2 (08:56→21:05)
[2023-06-15] MEDS: ATORVASTATIN 20 MG TAB PO SCH (08:56)
[2023-06-15] MEDS: LIDOCAINE 5% (LIDODERM) PATCH TD SCH (08:57)
[2023-06-15] MEDS: VANICREAM MOISTURIZING SKIN CREAM 113GM TUBE TOP SCH ×2 (08:57→21:07)
[2023-06-15] MEDS: CHLORTHALIDONE 25 MG TAB PO SCH (08:57)
[2023-06-15 08:58] VITALS: BP 147/92
[2023-06-15 17:37] VITALS: BP 142/87
[2023-06-15] MEDS: metFORMIN (GLUCOPHAGE) 500MG TAB PO SCH (17:37)
[2023-06-15] MEDS: ACETAMINOPHEN TAB 650MG DOSE (2X325MG) PO PRN (21:06)
[2023-06-15] MEDS: MICONAZOLE 2 % POWDER (DESENEX) TOP PRN (21:07)
[2023-06-16 05:00] VITALS: BP 143/85; TEMP 97.5; O2SAT 96
[2023-06-16] MEDS: LEVOTHYROXINE 25MCG TABLET (0.025MG) PO SCH (05:27)
[2023-06-16] MEDS: ENOXAPARIN 60MG/0.6ML SYRINGE (J1650 PER 10MG) SC SCH ×2 (08:26→20:17)
[2023-06-16] MEDS: metFORMIN (GLUCOPHAGE) 500MG TAB PO SCH ×2 (08:27→17:34)
[2023-06-16] MEDS: VITAMIN D 1,000 INTERNATIONAL UNITS TABLET PO SCH (08:27)
[2023-06-16] MEDS: SENOKOT S TAB PO SCH ×2 (08:27→20:17)
[2023-06-16] MEDS: PARoxetine 20MG TABLET PO SCH (08:28)
[2023-06-16] MEDS: ATORVASTATIN 20 MG TAB PO SCH (08:28)
[2023-06-16] MEDS: CHLORTHALIDONE 25 MG TAB PO SCH (08:28)
[2023-06-16] MEDS: LOSARTAN 25 MG TAB PO SCH (08:28)
[2023-06-16] MEDS: BUMETANIDE 1 MG TAB PO SCH ×2 (08:28→17:34)
[2023-06-16] MEDS: LIDOCAINE 5% (LIDODERM) PATCH TD SCH (12:05)
[2023-06-16] MEDS: VANICREAM MOISTURIZING SKIN CREAM 113GM TUBE TOP SCH ×2 (12:05→20:18)
[2023-06-16] MEDS: MICONAZOLE 2 % POWDER (DESENEX) TOP PRN (12:06)
[2023-06-17 04:40] VITALS: BP 142/73; TEMP 97.5; O2SAT 95
[2023-06-17] MEDS: LEVOTHYROXINE 25MCG TABLET (0.025MG) PO SCH (05:54)
[2023-06-17] MEDS: metFORMIN (GLUCOPHAGE) 500MG TAB PO SCH ×2 (08:52→17:46)
[2023-06-17] MEDS: ENOXAPARIN 60MG/0.6ML SYRINGE (J1650 PER 10MG) SC SCH ×2 (08:52→20:16)
[2023-06-17] MEDS: BUMETANIDE 1 MG TAB PO SCH ×4 (08:52→17:47)
[2023-06-17] MEDS: SENOKOT S TAB PO SCH ×2 (08:52→20:16)
[2023-06-17] MEDS: LOSARTAN 25 MG TAB PO SCH (08:54)
[2023-06-17] MEDS: VITAMIN D 1,000 INTERNATIONAL UNITS TABLET PO SCH (08:55)
[2023-06-17] MEDS: ATORVASTATIN 20 MG TAB PO SCH (08:55)
[2023-06-17] MEDS: CHLORTHALIDONE 25 MG TAB PO SCH (08:55)
[2023-06-17] MEDS: PARoxetine 20MG TABLET PO SCH (08:55)
[2023-06-17] MEDS: MICONAZOLE 2 % POWDER (DESENEX) TOP PRN (11:52)
[2023-06-17] MEDS: LIDOCAINE 5% (LIDODERM) PATCH TD SCH (11:52)
[2023-06-17] MEDS: VANICREAM MOISTURIZING SKIN CREAM 113GM TUBE TOP SCH ×2 (11:52→20:17)
[2023-06-17 17:52] VITALS: BP 113/63
[2023-06-17] MEDS: ACETAMINOPHEN TAB 650MG DOSE (2X325MG) PO PRN (20:16)
[2023-06-18 05:41] VITALS: BP 116/74; TEMP 97.3; O2SAT 95
[2023-06-18] MEDS: LEVOTHYROXINE 25MCG TABLET (0.025MG) PO SCH (05:43)
[2023-06-18] MEDS: ATORVASTATIN 20 MG TAB PO SCH (08:43)
[2023-06-18] MEDS: SENOKOT S TAB PO SCH ×2 (08:43→20:33)
[2023-06-18] MEDS: PARoxetine 20MG TABLET PO SCH (08:43)
[2023-06-18] MEDS: VITAMIN D 1,000 INTERNATIONAL UNITS TABLET PO SCH (08:43)
[2023-06-18] MEDS: BUMETANIDE 1 MG TAB PO SCH ×2 (08:43→18:09)
[2023-06-18] MEDS: CHLORTHALIDONE 25 MG TAB PO SCH (08:43)
[2023-06-18] MEDS: metFORMIN (GLUCOPHAGE) 500MG TAB PO SCH ×2 (08:43→18:10)
[2023-06-18] MEDS: LOSARTAN 25 MG TAB PO SCH (08:44)
[2023-06-18] MEDS: VANICREAM MOISTURIZING SKIN CREAM 113GM TUBE TOP SCH ×2 (08:44→20:36)
[2023-06-18] MEDS: ENOXAPARIN 60MG/0.6ML SYRINGE (J1650 PER 10MG) SC SCH ×2 (08:44→20:33)
[2023-06-18] MEDS: LIDOCAINE 5% (LIDODERM) PATCH TD SCH (08:44)
[2023-06-18] MEDS: ACETAMINOPHEN TAB 650MG DOSE (2X325MG) PO PRN (20:34)
[2023-06-19] MEDS: LEVOTHYROXINE 25MCG TABLET (0.025MG) PO SCH (05:22)
[2023-06-19 06:00] VITALS: BP 148/85; TEMP 97.7; O2SAT 93
[2023-06-19] MEDS: BUMETANIDE 1 MG TAB PO SCH ×2 (08:03→17:12)
[2023-06-19] MEDS: SENOKOT S TAB PO SCH ×2 (08:04→20:19)
[2023-06-19] MEDS: VITAMIN D 1,000 INTERNATIONAL UNITS TABLET PO SCH (08:04)
[2023-06-19] MEDS: ATORVASTATIN 20 MG TAB PO SCH (08:04)
[2023-06-19] MEDS: PARoxetine 20MG TABLET PO SCH (08:04)
[2023-06-19] MEDS: metFORMIN (GLUCOPHAGE) 500MG TAB PO SCH ×2 (08:05→17:12)
[2023-06-19] MEDS: LOSARTAN 25 MG TAB PO SCH (08:05)
[2023-06-19] MEDS: ENOXAPARIN 60MG/0.6ML SYRINGE (J1650 PER 10MG) SC SCH ×2 (08:06→20:18)
[2023-06-19] MEDS: LIDOCAINE 5% (LIDODERM) PATCH TD SCH ×3 (08:07→20:34)
[2023-06-19] MEDS: CHLORTHALIDONE 25 MG TAB PO SCH (08:11)
[2023-06-19] MEDS: VANICREAM MOISTURIZING SKIN CREAM 113GM TUBE TOP SCH ×2 (08:14→20:19)
[2023-06-19] MEDS: ACETAMINOPHEN TAB 650MG DOSE (2X325MG) PO PRN (20:18)
[2023-06-20] MEDS: LEVOTHYROXINE 25MCG TABLET (0.025MG) PO SCH (05:48)
[2023-06-20 06:00] VITALS: BP 107/70; TEMP 97.7; O2SAT 97
[2023-06-20] MEDS: metFORMIN (GLUCOPHAGE) 500MG TAB PO SCH ×2 (08:55→17:22)
[2023-06-20] MEDS: BUMETANIDE 1 MG TAB PO SCH ×2 (08:57→17:22)
[2023-06-20] MEDS: SENOKOT S TAB PO SCH ×2 (08:58→20:28)
[2023-06-20] MEDS: CHLORTHALIDONE 25 MG TAB PO SCH (08:58)
[2023-06-20] MEDS: PARoxetine 20MG TABLET PO SCH (08:58)
[2023-06-20] MEDS: ENOXAPARIN 60MG/0.6ML SYRINGE (J1650 PER 10MG) SC SCH ×2 (08:58→20:28)
[2023-06-20] MEDS: VITAMIN D 1,000 INTERNATIONAL UNITS TABLET PO SCH (08:58)
[2023-06-20] MEDS: ATORVASTATIN 20 MG TAB PO SCH (08:58)
[2023-06-20] MEDS: LOSARTAN 25 MG TAB PO SCH (08:58)
[2023-06-20] MEDS: VANICREAM MOISTURIZING SKIN CREAM 113GM TUBE TOP SCH ×2 (09:29→20:28)
[2023-06-20] MEDS: LIDOCAINE 5% (LIDODERM) PATCH TD SCH (13:15)
[2023-06-20] MEDS: ACETAMINOPHEN TAB 650MG DOSE (2X325MG) PO PRN (20:28)
[2023-06-21 04:50] VITALS: BP 123/76; TEMP 97.5; O2SAT 94
[2023-06-21] MEDS: LEVOTHYROXINE 25MCG TABLET (0.025MG) PO SCH (05:48)
[2023-06-21] MEDS: ATORVASTATIN 20 MG TAB PO SCH (08:10)
[2023-06-21] MEDS: BUMETANIDE 1 MG TAB PO SCH ×2 (08:10→18:20)
[2023-06-21] MEDS: PARoxetine 20MG TABLET PO SCH (08:10)
[2023-06-21] MEDS: metFORMIN (GLUCOPHAGE) 500MG TAB PO SCH ×2 (08:10→18:20)
[2023-06-21] MEDS: VITAMIN D 1,000 INTERNATIONAL UNITS TABLET PO SCH (08:11)
[2023-06-21] MEDS: ENOXAPARIN 60MG/0.6ML SYRINGE (J1650 PER 10MG) SC SCH ×2 (08:11→20:35)
[2023-06-21] MEDS: LIDOCAINE 5% (LIDODERM) PATCH TD SCH (08:11)
[2023-06-21] MEDS: LOSARTAN 25 MG TAB PO SCH (08:11)
[2023-06-21] MEDS: VANICREAM MOISTURIZING SKIN CREAM 113GM TUBE TOP SCH ×2 (08:11→20:36)
[2023-06-21] MEDS: CHLORTHALIDONE 25 MG TAB PO SCH (08:11)
[2023-06-21] MEDS: SENOKOT S TAB PO SCH ×2 (08:11→20:35)
[2023-06-21] MEDS: ACETAMINOPHEN TAB 650MG DOSE (2X325MG) PO PRN (20:36)
[2023-06-22 04:50] VITALS: BP 126/77; TEMP 97.2; O2SAT 94
[2023-06-22] MEDS: LEVOTHYROXINE 25MCG TABLET (0.025MG) PO SCH (05:25)
[2023-06-22] MEDS: PARoxetine 20MG TABLET PO SCH (08:21)
[2023-06-22] MEDS: VITAMIN D 1,000 INTERNATIONAL UNITS TABLET PO SCH (08:21)
[2023-06-22] MEDS: SENOKOT S TAB PO SCH ×2 (08:21→20:56)
[2023-06-22] MEDS: metFORMIN (GLUCOPHAGE) 500MG TAB PO SCH ×2 (08:21→17:30)
[2023-06-22] MEDS: ATORVASTATIN 20 MG TAB PO SCH (08:21)
[2023-06-22] MEDS: CHLORTHALIDONE 25 MG TAB PO SCH (08:22)
[2023-06-22] MEDS: ENOXAPARIN 60MG/0.6ML SYRINGE (J1650 PER 10MG) SC SCH ×2 (08:22→20:56)
[2023-06-22] MEDS: VANICREAM MOISTURIZING SKIN CREAM 113GM TUBE TOP SCH ×2 (08:22→20:57)
[2023-06-22] MEDS: BUMETANIDE 1 MG TAB PO SCH ×2 (08:22→17:30)
[2023-06-22] MEDS: LIDOCAINE 5% (LIDODERM) PATCH TD SCH (08:22)
[2023-06-22] MEDS: LOSARTAN 25 MG TAB PO SCH (08:23)
[2023-06-22] MEDS: ACETAMINOPHEN TAB 650MG DOSE (2X325MG) PO PRN (20:56)
[2023-06-23] MEDS: LEVOTHYROXINE 25MCG TABLET (0.025MG) PO SCH (05:02)
[2023-06-23 05:04] VITALS: BP 134/77; TEMP 97.5; O2SAT 92
[2023-06-23] MEDS: BUMETANIDE 1 MG TAB PO SCH ×2 (08:09→17:45)
[2023-06-23] MEDS: ATORVASTATIN 20 MG TAB PO SCH (08:09)
[2023-06-23] MEDS: CHLORTHALIDONE 25 MG TAB PO SCH (08:09)
[2023-06-23] MEDS: metFORMIN (GLUCOPHAGE) 500MG TAB PO SCH ×2 (08:09→17:45)
[2023-06-23] MEDS: SENOKOT S TAB PO SCH ×2 (08:09→20:28)
[2023-06-23] MEDS: PARoxetine 20MG TABLET PO SCH (08:09)
[2023-06-23] MEDS: LIDOCAINE 5% (LIDODERM) PATCH TD SCH (08:10)
[2023-06-23] MEDS: LOSARTAN 25 MG TAB PO SCH (08:10)
[2023-06-23] MEDS: VANICREAM MOISTURIZING SKIN CREAM 113GM TUBE TOP SCH ×2 (08:10→20:29)
[2023-06-23] MEDS: VITAMIN D 1,000 INTERNATIONAL UNITS TABLET PO SCH (08:10)
[2023-06-23] MEDS: ENOXAPARIN 60MG/0.6ML SYRINGE (J1650 PER 10MG) SC SCH ×2 (08:10→20:28)
[2023-06-23] MEDS ORDERED: BENZONATATE 100MG CAPSULE PO PRN (09:15)
[2023-06-23] MEDS: FORMOTEROL FUMARATE 20 MCG/2 ML INHALATION SOLUTION (PERFOROMIST) INH SCH (20:22)
[2023-06-23] MEDS: ACETAMINOPHEN TAB 650MG DOSE (2X325MG) PO PRN (20:28)
[2023-06-24] MEDS: LEVOTHYROXINE 25MCG TABLET (0.025MG) PO SCH (05:19)
[2023-06-24 05:31] VITALS: BP 154/75; TEMP 96.9; O2SAT 93
[2023-06-24] MEDS: TIOTROPIUM INHALER/CAPSULE (SPIRIVA) INH SCH (07:21)
[2023-06-24] MEDS: FORMOTEROL FUMARATE 20 MCG/2 ML INHALATION SOLUTION (PERFOROMIST) INH SCH ×2 (07:21→19:14)
[2023-06-24] MEDS: SENOKOT S TAB PO SCH ×2 (08:50→20:40)
[2023-06-24] MEDS: PARoxetine 20MG TABLET PO SCH (08:50)
[2023-06-24] MEDS: ATORVASTATIN 20 MG TAB PO SCH (08:50)
[2023-06-24] MEDS: VITAMIN D 1,000 INTERNATIONAL UNITS TABLET PO SCH (08:51)
[2023-06-24] MEDS: metFORMIN (GLUCOPHAGE) 500MG TAB PO SCH ×2 (08:51→17:32)
[2023-06-24] MEDS: LOSARTAN 25 MG TAB PO SCH (08:51)
[2023-06-24] MEDS: VANICREAM MOISTURIZING SKIN CREAM 113GM TUBE TOP SCH ×2 (08:52→20:53)
[2023-06-24] MEDS: ENOXAPARIN 60MG/0.6ML SYRINGE (J1650 PER 10MG) SC SCH ×2 (08:52→20:41)
[2023-06-24] MEDS: LIDOCAINE 5% (LIDODERM) PATCH TD SCH (08:52)
[2023-06-24] MEDS: BUMETANIDE 1 MG TAB PO SCH ×2 (09:13→17:32)
[2023-06-24] MEDS: CHLORTHALIDONE 25 MG TAB PO SCH (09:14)
[2023-06-24] MEDS: MICONAZOLE 2 % POWDER (DESENEX) TOP PRN (12:00)
[2023-06-24] MEDS: ACETAMINOPHEN TAB 650MG DOSE (2X325MG) PO PRN (20:40)
[2023-06-25] MEDS: LEVOTHYROXINE 25MCG TABLET (0.025MG) PO SCH (05:05)
[2023-06-25 06:00] VITALS: BP 130/79; TEMP 97.5; O2SAT 95
[2023-06-25] MEDS: FORMOTEROL FUMARATE 20 MCG/2 ML INHALATION SOLUTION (PERFOROMIST) INH SCH ×2 (07:28→19:21)
[2023-06-25] MEDS: TIOTROPIUM INHALER/CAPSULE (SPIRIVA) INH SCH (07:28)
[2023-06-25] MEDS: BUMETANIDE 1 MG TAB PO SCH ×2 (08:38→17:03)
[2023-06-25] MEDS: PARoxetine 20MG TABLET PO SCH (08:38)
[2023-06-25] MEDS: ATORVASTATIN 20 MG TAB PO SCH (08:38)
[2023-06-25] MEDS: metFORMIN (GLUCOPHAGE) 500MG TAB PO SCH ×2 (08:38→17:03)
[2023-06-25] MEDS: CHLORTHALIDONE 25 MG TAB PO SCH (08:38)
[2023-06-25] MEDS: LIDOCAINE 5% (LIDODERM) PATCH TD SCH (08:39)
[2023-06-25] MEDS: VANICREAM MOISTURIZING SKIN CREAM 113GM TUBE TOP SCH ×2 (08:39→20:20)
[2023-06-25] MEDS: SENOKOT S TAB PO SCH ×2 (08:39→20:19)
[2023-06-25] MEDS: VITAMIN D 1,000 INTERNATIONAL UNITS TABLET PO SCH (08:39)
[2023-06-25] MEDS: ENOXAPARIN 60MG/0.6ML SYRINGE (J1650 PER 10MG) SC SCH ×2 (08:39→20:19)
[2023-06-25] MEDS: LOSARTAN 25 MG TAB PO SCH (08:39)
[2023-06-25 17:13] VITALS: BP 121/76
[2023-06-26] MEDS: LEVOTHYROXINE 25MCG TABLET (0.025MG) PO SCH (05:43)
[2023-06-26 06:00] VITALS: BP 126/79; TEMP 97.7; O2SAT 93
[2023-06-26] MEDS: TIOTROPIUM INHALER/CAPSULE (SPIRIVA) INH SCH (07:17)
[2023-06-26] MEDS: FORMOTEROL FUMARATE 20 MCG/2 ML INHALATION SOLUTION (PERFOROMIST) INH SCH ×2 (07:17→19:24)
[2023-06-26] MEDS: metFORMIN (GLUCOPHAGE) 500MG TAB PO SCH ×2 (08:56→16:59)
[2023-06-26] MEDS: CHLORTHALIDONE 25 MG TAB PO SCH (08:56)
[2023-06-26] MEDS: BUMETANIDE 1 MG TAB PO SCH ×2 (08:56→16:58)
[2023-06-26] MEDS: VITAMIN D 1,000 INTERNATIONAL UNITS TABLET PO SCH (08:56)
[2023-06-26] MEDS: ATORVASTATIN 20 MG TAB PO SCH (08:56)
[2023-06-26] MEDS: ENOXAPARIN 60MG/0.6ML SYRINGE (J1650 PER 10MG) SC SCH ×2 (08:56→20:27)
[2023-06-26] MEDS: SENOKOT S TAB PO SCH ×2 (08:57→20:27)
[2023-06-26] MEDS: LOSARTAN 25 MG TAB PO SCH (08:57)
[2023-06-26] MEDS: PARoxetine 20MG TABLET PO SCH (08:57)
[2023-06-26] MEDS: VANICREAM MOISTURIZING SKIN CREAM 113GM TUBE TOP SCH ×2 (08:58→20:27)
[2023-06-26] MEDS: LIDOCAINE 5% (LIDODERM) PATCH TD SCH (09:00)
[2023-06-27] MEDS: LEVOTHYROXINE 25MCG TABLET (0.025MG) PO SCH (05:36)
[2023-06-27 06:00] VITALS: BP 110/63; TEMP 97.7; O2SAT 93
[2023-06-27] MEDS: VITAMIN D 1,000 INTERNATIONAL UNITS TABLET PO SCH (07:57)
[2023-06-27] MEDS: metFORMIN (GLUCOPHAGE) 500MG TAB PO SCH ×2 (07:57→17:00)
[2023-06-27] MEDS: LOSARTAN 25 MG TAB PO SCH (07:58)
[2023-06-27] MEDS: BUMETANIDE 1 MG TAB PO SCH ×2 (07:58→17:00)
[2023-06-27] MEDS: SENOKOT S TAB PO SCH ×2 (07:58→21:01)
[2023-06-27] MEDS: ATORVASTATIN 20 MG TAB PO SCH (07:58)
[2023-06-27] MEDS: PARoxetine 20MG TABLET PO SCH (07:58)
[2023-06-27] MEDS: ENOXAPARIN 60MG/0.6ML SYRINGE (J1650 PER 10MG) SC SCH ×2 (07:59→21:01)
[2023-06-27] MEDS: CHLORTHALIDONE 25 MG TAB PO SCH (07:59)
[2023-06-27] MEDS: FORMOTEROL FUMARATE 20 MCG/2 ML INHALATION SOLUTION (PERFOROMIST) INH SCH ×2 (08:13→20:37)
[2023-06-27] MEDS: TIOTROPIUM INHALER/CAPSULE (SPIRIVA) INH SCH (08:13)
[2023-06-27] MEDS: LIDOCAINE 5% (LIDODERM) PATCH TD SCH (10:32)
[2023-06-27] MEDS: VANICREAM MOISTURIZING SKIN CREAM 113GM TUBE TOP SCH ×2 (10:33→21:01)
[2023-06-27] MEDS: ACETAMINOPHEN TAB 650MG DOSE (2X325MG) PO PRN (21:01)
[2023-06-28] MEDS: LEVOTHYROXINE 25MCG TABLET (0.025MG) PO SCH (05:53)
[2023-06-28 06:05] VITALS: BP 131/69; TEMP 97.5; O2SAT 94
[2023-06-28] MEDS: FORMOTEROL FUMARATE 20 MCG/2 ML INHALATION SOLUTION (PERFOROMIST) INH SCH ×2 (07:13→20:22)
[2023-06-28] MEDS: TIOTROPIUM INHALER/CAPSULE (SPIRIVA) INH SCH (07:13)
[2023-06-28] MEDS: SENOKOT S TAB PO SCH ×2 (08:14→21:08)
[2023-06-28] MEDS: PARoxetine 20MG TABLET PO SCH (08:14)
[2023-06-28] MEDS: CHLORTHALIDONE 25 MG TAB PO SCH (08:14)
[2023-06-28] MEDS: LOSARTAN 25 MG TAB PO SCH (08:14)
[2023-06-28] MEDS: BUMETANIDE 1 MG TAB PO SCH ×2 (08:14→17:37)
[2023-06-28] MEDS: ATORVASTATIN 20 MG TAB PO SCH (08:14)
[2023-06-28] MEDS: metFORMIN (GLUCOPHAGE) 500MG TAB PO SCH ×2 (08:14→17:38)
[2023-06-28] MEDS: VITAMIN D 1,000 INTERNATIONAL UNITS TABLET PO SCH (08:14)
[2023-06-28] MEDS: VANICREAM MOISTURIZING SKIN CREAM 113GM TUBE TOP SCH ×2 (08:15→21:09)
[2023-06-28] MEDS: LIDOCAINE 5% (LIDODERM) PATCH TD SCH (08:15)
[2023-06-28] MEDS: ENOXAPARIN 60MG/0.6ML SYRINGE (J1650 PER 10MG) SC SCH (08:15)
[2023-06-28] MEDS: MICONAZOLE 2 % POWDER (DESENEX) TOP PRN (08:15)
[2023-06-28 12:25] LABS: INR 1.13; PARTIAL THROMBOPLASTIN TIME 32.7 SECONDS (24.8-34.2); PROTHROMBIN TIME 14.1 SECONDS (12.5-14.5)
[2023-06-28] MEDS: RIVAROXABAN 10MG TAB (XARELTO) PO SCH (17:37)
[2023-06-28] MEDS: CLOTRIMAZOLE 1% TOPICAL CREAM 30GM TOP SCH ×2 (17:38→21:09)
[2023-06-28] MEDS ORDERED: FLUCONAZOLE 50MG TABLET PO ONE (20:00)
[2023-06-29] MEDS: LEVOTHYROXINE 25MCG TABLET (0.025MG) PO SCH (05:42)
[2023-06-29] MEDS: FORMOTEROL FUMARATE 20 MCG/2 ML INHALATION SOLUTION (PERFOROMIST) INH SCH ×2 (06:14→19:08)
[2023-06-29] MEDS: TIOTROPIUM INHALER/CAPSULE (SPIRIVA) INH SCH (06:14)
[2023-06-29 06:56] VITALS: BP 127/72; TEMP 97.7; O2SAT 93
[2023-06-29] MEDS: ATORVASTATIN 20 MG TAB PO SCH (08:47)
[2023-06-29] MEDS: SENOKOT S TAB PO SCH ×2 (08:47→20:01)
[2023-06-29] MEDS: VITAMIN D 1,000 INTERNATIONAL UNITS TABLET PO SCH (08:47)
[2023-06-29] MEDS: PARoxetine 20MG TABLET PO SCH (08:47)
[2023-06-29] MEDS: BUMETANIDE 1 MG TAB PO SCH ×2 (08:49→17:17)
[2023-06-29] MEDS: LOSARTAN 25 MG TAB PO SCH (08:49)
[2023-06-29] MEDS: metFORMIN (GLUCOPHAGE) 500MG TAB PO SCH ×2 (08:50→17:16)
[2023-06-29] MEDS: CHLORTHALIDONE 25 MG TAB PO SCH (08:50)
[2023-06-29] MEDS: CLOTRIMAZOLE 1% TOPICAL CREAM 30GM TOP SCH ×4 (11:16→20:01)
[2023-06-29] MEDS: LIDOCAINE 5% (LIDODERM) PATCH TD SCH (11:16)
[2023-06-29] MEDS: VANICREAM MOISTURIZING SKIN CREAM 113GM TUBE TOP SCH ×2 (11:17→20:02)
[2023-06-29] MEDS: RIVAROXABAN 10MG TAB (XARELTO) PO SCH (17:17)
[2023-06-29 17:25] VITALS: BP 128/72
[2023-06-30 05:18] VITALS: BP 126/72; TEMP 97.5; O2SAT 94
[2023-06-30] MEDS: LEVOTHYROXINE 25MCG TABLET (0.025MG) PO SCH (05:30)
[2023-06-30] MEDS: LIDOCAINE 5% (LIDODERM) PATCH TD SCH (08:31)
[2023-06-30] MEDS: VANICREAM MOISTURIZING SKIN CREAM 113GM TUBE TOP SCH ×2 (08:32→21:21)
[2023-06-30] MEDS: LOSARTAN 25 MG TAB PO SCH (08:32)
[2023-06-30] MEDS: CLOTRIMAZOLE 1% TOPICAL CREAM 30GM TOP SCH ×4 (08:32→21:21)
[2023-06-30] MEDS: BUMETANIDE 1 MG TAB PO SCH ×2 (08:33→17:17)
[2023-06-30] MEDS: metFORMIN (GLUCOPHAGE) 500MG TAB PO SCH ×2 (08:33→17:17)
[2023-06-30] MEDS: CHLORTHALIDONE 25 MG TAB PO SCH (08:33)
[2023-06-30] MEDS: VITAMIN D 1,000 INTERNATIONAL UNITS TABLET PO SCH (08:33)
[2023-06-30] MEDS: PARoxetine 20MG TABLET PO SCH (08:34)
[2023-06-30] MEDS: SENOKOT S TAB PO SCH ×2 (08:34→21:21)
[2023-06-30] MEDS: ATORVASTATIN 20 MG TAB PO SCH (08:34)
[2023-06-30] MEDS: FORMOTEROL FUMARATE 20 MCG/2 ML INHALATION SOLUTION (PERFOROMIST) INH SCH ×2 (09:07→19:16)
[2023-06-30] MEDS: TIOTROPIUM INHALER/CAPSULE (SPIRIVA) INH SCH (09:08)
[2023-06-30] MEDS: RIVAROXABAN 10MG TAB (XARELTO) PO SCH (17:17)
[2023-07-01 05:19] VITALS: BP 124/75; TEMP 97.7; O2SAT 92
[2023-07-01] MEDS: LEVOTHYROXINE 25MCG TABLET (0.025MG) PO SCH (05:53)
[2023-07-01] MEDS: VITAMIN D 1,000 INTERNATIONAL UNITS TABLET PO SCH (08:05)
[2023-07-01] MEDS: VANICREAM MOISTURIZING SKIN CREAM 113GM TUBE TOP SCH ×2 (08:05→20:41)
[2023-07-01] MEDS: LIDOCAINE 5% (LIDODERM) PATCH TD SCH (08:05)
[2023-07-01] MEDS: PARoxetine 20MG TABLET PO SCH (08:05)
[2023-07-01] MEDS: metFORMIN (GLUCOPHAGE) 500MG TAB PO SCH ×2 (08:05→17:54)
[2023-07-01] MEDS: CLOTRIMAZOLE 1% TOPICAL CREAM 30GM TOP SCH ×4 (08:05→20:41)
[2023-07-01] MEDS: ATORVASTATIN 20 MG TAB PO SCH (08:06)
[2023-07-01] MEDS: SENOKOT S TAB PO SCH ×2 (08:06→21:00)
[2023-07-01] MEDS: LOSARTAN 25 MG TAB PO SCH (08:10)
[2023-07-01] MEDS: CHLORTHALIDONE 25 MG TAB PO SCH (08:10)
[2023-07-01] MEDS: BUMETANIDE 1 MG TAB PO SCH ×2 (08:10→17:54)
[2023-07-01] MEDS: FORMOTEROL FUMARATE 20 MCG/2 ML INHALATION SOLUTION (PERFOROMIST) INH SCH ×2 (08:32→19:36)
[2023-07-01] MEDS: TIOTROPIUM INHALER/CAPSULE (SPIRIVA) INH SCH (08:32)
[2023-07-01] MEDS: RIVAROXABAN 10MG TAB (XARELTO) PO SCH (17:53)
[2023-07-02 05:46] VITALS: BP 131/70; TEMP 97.7; O2SAT 95
[2023-07-02] MEDS: LEVOTHYROXINE 25MCG TABLET (0.025MG) PO SCH (05:59)
[2023-07-02] MEDS: TIOTROPIUM INHALER/CAPSULE (SPIRIVA) INH SCH (07:09)
[2023-07-02] MEDS: FORMOTEROL FUMARATE 20 MCG/2 ML INHALATION SOLUTION (PERFOROMIST) INH SCH ×2 (07:09→20:09)
[2023-07-02] MEDS: metFORMIN (GLUCOPHAGE) 500MG TAB PO SCH ×2 (08:03→17:31)
[2023-07-02] MEDS: BUMETANIDE 1 MG TAB PO SCH ×2 (08:03→17:32)
[2023-07-02] MEDS: ATORVASTATIN 20 MG TAB PO SCH (08:03)
[2023-07-02] MEDS: PARoxetine 20MG TABLET PO SCH (08:03)
[2023-07-02] MEDS: CLOTRIMAZOLE 1% TOPICAL CREAM 30GM TOP SCH ×4 (08:04→21:49)
[2023-07-02] MEDS: VANICREAM MOISTURIZING SKIN CREAM 113GM TUBE TOP SCH ×2 (08:04→21:49)
[2023-07-02] MEDS: CHLORTHALIDONE 25 MG TAB PO SCH (08:04)
[2023-07-02] MEDS: LOSARTAN 25 MG TAB PO SCH (08:04)
[2023-07-02] MEDS: VITAMIN D 1,000 INTERNATIONAL UNITS TABLET PO SCH (08:04)
[2023-07-02] MEDS: SENOKOT S TAB PO SCH ×2 (08:04→21:49)
[2023-07-02] MEDS: LIDOCAINE 5% (LIDODERM) PATCH TD SCH (08:05)
[2023-07-02] MEDS: ACETAMINOPHEN TAB 650MG DOSE (2X325MG) PO PRN (13:48)
[2023-07-02] MEDS: RIVAROXABAN 10MG TAB (XARELTO) PO SCH (17:32)
[2023-07-03] MEDS: LEVOTHYROXINE 25MCG TABLET (0.025MG) PO SCH (05:54)
[2023-07-03 05:55] VITALS: BP 114/79; TEMP 97.3; O2SAT 95
[2023-07-03] MEDS: FORMOTEROL FUMARATE 20 MCG/2 ML INHALATION SOLUTION (PERFOROMIST) INH SCH ×2 (07:15→20:20)
[2023-07-03] MEDS: TIOTROPIUM INHALER/CAPSULE (SPIRIVA) INH SCH (07:15)
[2023-07-03] MEDS: VITAMIN D 1,000 INTERNATIONAL UNITS TABLET PO SCH (08:30)
[2023-07-03] MEDS: LOSARTAN 25 MG TAB PO SCH (08:30)
[2023-07-03] MEDS: SENOKOT S TAB PO SCH ×2 (08:30→20:12)
[2023-07-03] MEDS: BUMETANIDE 1 MG TAB PO SCH ×2 (08:30→17:09)
[2023-07-03] MEDS: ATORVASTATIN 20 MG TAB PO SCH (08:30)
[2023-07-03] MEDS: metFORMIN (GLUCOPHAGE) 500MG TAB PO SCH ×2 (08:30→17:07)
[2023-07-03] MEDS: PARoxetine 20MG TABLET PO SCH (08:31)
[2023-07-03] MEDS: CLOTRIMAZOLE 1% TOPICAL CREAM 30GM TOP SCH ×5 (08:31→21:00)
[2023-07-03] MEDS: CHLORTHALIDONE 25 MG TAB PO SCH (08:31)
[2023-07-03] MEDS: LIDOCAINE 5% (LIDODERM) PATCH TD SCH (08:31)
[2023-07-03] MEDS: VANICREAM MOISTURIZING SKIN CREAM 113GM TUBE TOP SCH ×2 (08:31→20:13)
[2023-07-03] MEDS: ACETAMINOPHEN TAB 650MG DOSE (2X325MG) PO PRN (14:22)
[2023-07-03] MEDS: RIVAROXABAN 10MG TAB (XARELTO) PO SCH (17:07)
[2023-07-04] MEDS: LEVOTHYROXINE 25MCG TABLET (0.025MG) PO SCH (05:54)
[2023-07-04 06:00] VITALS: BP 132/79; TEMP 97.5; O2SAT 97
[2023-07-04] MEDS: TIOTROPIUM INHALER/CAPSULE (SPIRIVA) INH SCH (07:55)
[2023-07-04] MEDS: FORMOTEROL FUMARATE 20 MCG/2 ML INHALATION SOLUTION (PERFOROMIST) INH SCH (07:55)
[2023-07-04] MEDS: LIDOCAINE 5% (LIDODERM) PATCH TD SCH (08:37)
[2023-07-04] MEDS: SENOKOT S TAB PO SCH ×2 (08:39→20:07)
[2023-07-04] MEDS: metFORMIN (GLUCOPHAGE) 500MG TAB PO SCH ×2 (08:39→17:25)
[2023-07-04] MEDS: LOSARTAN 25 MG TAB PO SCH (08:39)
[2023-07-04] MEDS: CHLORTHALIDONE 25 MG TAB PO SCH (08:39)
[2023-07-04] MEDS: PARoxetine 20MG TABLET PO SCH (08:39)
[2023-07-04] MEDS: ATORVASTATIN 20 MG TAB PO SCH (08:39)
[2023-07-04] MEDS: VANICREAM MOISTURIZING SKIN CREAM 113GM TUBE TOP SCH ×2 (08:40→20:07)
[2023-07-04] MEDS: VITAMIN D 1,000 INTERNATIONAL UNITS TABLET PO SCH (08:40)
[2023-07-04] MEDS: BUMETANIDE 1 MG TAB PO SCH ×2 (08:40→17:25)
[2023-07-04] MEDS: CLOTRIMAZOLE 1% TOPICAL CREAM 30GM TOP SCH ×4 (08:41→20:07)
[2023-07-04] MEDS: RIVAROXABAN 10MG TAB (XARELTO) PO SCH (17:25)
[2023-07-04 17:29] VITALS: BP 122/75
[2023-07-04] MEDS: SYMBICORT 80/4.5MCG INHALER 6GM INH SCH (19:20)
[2023-07-05 04:40] VITALS: BP 119/75; TEMP 97.2; O2SAT 95
[2023-07-05] MEDS: LEVOTHYROXINE 25MCG TABLET (0.025MG) PO SCH (06:11)
[2023-07-05] MEDS: TIOTROPIUM INHALER/CAPSULE (SPIRIVA) INH SCH (07:21)
[2023-07-05] MEDS: SYMBICORT 80/4.5MCG INHALER 6GM INH SCH ×2 (07:21→19:26)
[2023-07-05] MEDS: LIDOCAINE 5% (LIDODERM) PATCH TD SCH (08:36)
[2023-07-05] MEDS: VANICREAM MOISTURIZING SKIN CREAM 113GM TUBE TOP SCH ×2 (08:36→20:09)
[2023-07-05] MEDS: CLOTRIMAZOLE 1% TOPICAL CREAM 30GM TOP SCH ×4 (08:36→20:09)
[2023-07-05] MEDS: metFORMIN (GLUCOPHAGE) 500MG TAB PO SCH ×2 (08:37→17:13)
[2023-07-05] MEDS: CHLORTHALIDONE 25 MG TAB PO SCH (08:37)
[2023-07-05] MEDS: LOSARTAN 25 MG TAB PO SCH (08:39)
[2023-07-05] MEDS: SENOKOT S TAB PO SCH ×2 (08:39→20:09)
[2023-07-05] MEDS: PARoxetine 20MG TABLET PO SCH (08:41)
[2023-07-05] MEDS: BUMETANIDE 1 MG TAB PO SCH ×2 (08:41→17:15)
[2023-07-05] MEDS: ATORVASTATIN 20 MG TAB PO SCH (08:42)
[2023-07-05] MEDS: VITAMIN D 1,000 INTERNATIONAL UNITS TABLET PO SCH (08:43)
[2023-07-05 08:45] VITALS: BP 118/64
[2023-07-05] MEDS: RIVAROXABAN 10MG TAB (XARELTO) PO SCH (17:13)
[2023-07-05 17:17] VITALS: BP 137/77
[2023-07-05] MEDS: ACETAMINOPHEN TAB 650MG DOSE (2X325MG) PO PRN (20:10)
[2023-07-06] MEDS: LEVOTHYROXINE 25MCG TABLET (0.025MG) PO SCH (05:31)
[2023-07-06 05:57] VITALS: BP 128/68; TEMP 97; O2SAT 96
[2023-07-06] MEDS: TIOTROPIUM INHALER/CAPSULE (SPIRIVA) INH SCH (07:10)
[2023-07-06] MEDS: SYMBICORT 80/4.5MCG INHALER 6GM INH SCH ×2 (07:10→20:17)
[2023-07-06] MEDS: LIDOCAINE 5% (LIDODERM) PATCH TD SCH (08:36)
[2023-07-06] MEDS: BUMETANIDE 1 MG TAB PO SCH ×2 (08:36→17:01)
[2023-07-06] MEDS: LOSARTAN 25 MG TAB PO SCH (08:39)
[2023-07-06] MEDS: CHLORTHALIDONE 25 MG TAB PO SCH (08:39)
[2023-07-06] MEDS: metFORMIN (GLUCOPHAGE) 500MG TAB PO SCH ×2 (08:39→17:00)
[2023-07-06] MEDS: CLOTRIMAZOLE 1% TOPICAL CREAM 30GM TOP SCH ×4 (08:40→21:35)
[2023-07-06] MEDS: ATORVASTATIN 20 MG TAB PO SCH (08:40)
[2023-07-06] MEDS: VITAMIN D 1,000 INTERNATIONAL UNITS TABLET PO SCH (08:40)
[2023-07-06] MEDS: PARoxetine 20MG TABLET PO SCH (08:40)
[2023-07-06] MEDS: VANICREAM MOISTURIZING SKIN CREAM 113GM TUBE TOP SCH ×2 (08:40→21:35)
[2023-07-06] MEDS: SENOKOT S TAB PO SCH ×2 (08:41→20:04)
[2023-07-06] MEDS: RIVAROXABAN 10MG TAB (XARELTO) PO SCH (17:00)
[2023-07-06 17:01] VITALS: BP 122/76
[2023-07-06] MEDS: ACETAMINOPHEN TAB 650MG DOSE (2X325MG) PO PRN (21:34)
[2023-07-07] MEDS: LEVOTHYROXINE 25MCG TABLET (0.025MG) PO SCH (05:17)
[2023-07-07 05:56] VITALS: BP 123/77; TEMP 97.5; O2SAT 94
[2023-07-07] MEDS: TIOTROPIUM INHALER/CAPSULE (SPIRIVA) INH SCH (07:14)
[2023-07-07] MEDS: SYMBICORT 80/4.5MCG INHALER 6GM INH SCH ×2 (07:14→19:20)
[2023-07-07] MEDS: metFORMIN (GLUCOPHAGE) 500MG TAB PO SCH ×2 (08:10→17:13)
[2023-07-07] MEDS: LOSARTAN 25 MG TAB PO SCH (08:11)
[2023-07-07] MEDS: CHLORTHALIDONE 25 MG TAB PO SCH (08:11)
[2023-07-07] MEDS: VITAMIN D 1,000 INTERNATIONAL UNITS TABLET PO SCH (08:11)
[2023-07-07] MEDS: ATORVASTATIN 20 MG TAB PO SCH (08:11)
[2023-07-07] MEDS: SENOKOT S TAB PO SCH ×2 (08:11→19:41)
[2023-07-07] MEDS: PARoxetine 20MG TABLET PO SCH (08:11)
[2023-07-07] MEDS: BUMETANIDE 1 MG TAB PO SCH ×2 (08:11→17:15)
[2023-07-07] MEDS: CLOTRIMAZOLE 1% TOPICAL CREAM 30GM TOP SCH ×4 (08:11→19:42)
[2023-07-07] MEDS: LIDOCAINE 5% (LIDODERM) PATCH TD SCH (08:12)
[2023-07-07] MEDS: VANICREAM MOISTURIZING SKIN CREAM 113GM TUBE TOP SCH ×2 (08:12→19:42)
[2023-07-07 09:17] LABS: BASO % 0.4 % (0.0-1.0); EOS # 0.2 10^3/uL (0.0-0.5); EOS % 2.3 % (0.0-3.0); HEMATOCRIT 37.1 % (42.0-52.0); HEMOGLOBIN 12.4 g/dl (13.5-17.5); LYMPH # 1.6 10^3/uL (1.5-5.0); LYMPH % 22.5 % (24.0-44.0); MEAN CORPUSCULAR HEMOGLOBIN 30.5 pg (27.0-33.0); MEAN CORPUSCULAR HGB CONC 33.4 g/dl (32.0-36.5); MEAN CORPUSCULAR VOLUME 91.2 fl (80.0-96.0); MONO # 0.4 10^3/uL (0.0-0.8); MONO % 4.9 % (2.0-8.0); NEUTROPHILS # 4.9 10^3/uL (1.5-8.5); NEUTROPHILS % 69.6 % (36.0-66.0); PLATELET COUNT, AUTOMATED 339 10^3/uL (150-450); RED BLOOD COUNT 4.07 10^6/uL (4.30-6.10); WHITE BLOOD COUNT 7.1 10^3/uL (4.0-10.0)
[2023-07-07 09:40] LABS: BLOOD UREA NITROGEN 31 MG/DL (9-23); CARBON DIOXIDE LEVEL 32 MMOL/L (20-31); CHLORIDE LEVEL 96 MMOL/L (98-107); CREATININE FOR GFR 0.89 MG/DL (0.70-1.30); GLOMERULAR FILTRATION RATE > 60.0 (>56); GLUCOSE, FASTING 137 MG/DL (60-100); POTASSIUM SERUM 3.2 MMOL/L (3.5-5.1); SODIUM LEVEL 137 MMOL/L (136-145)
[2023-07-07] MEDS ORDERED: POTASSIUM CHLORIDE 10MEQ SR TABLET PO ONE (13:00)
[2023-07-07] MEDS: RIVAROXABAN 10MG TAB (XARELTO) PO SCH (17:13)
[2023-07-08] MEDS: LEVOTHYROXINE 25MCG TABLET (0.025MG) PO SCH (05:57)
[2023-07-08 06:13] VITALS: BP 126/67; TEMP 97.9; O2SAT 95
[2023-07-08] MEDS: TIOTROPIUM INHALER/CAPSULE (SPIRIVA) INH SCH (07:19)
[2023-07-08] MEDS: SYMBICORT 80/4.5MCG INHALER 6GM INH SCH ×2 (07:19→20:04)
[2023-07-08] MEDS: ATORVASTATIN 20 MG TAB PO SCH (08:34)
[2023-07-08] MEDS: BUMETANIDE 1 MG TAB PO SCH ×2 (08:34→16:42)
[2023-07-08] MEDS: SENOKOT S TAB PO SCH ×2 (08:34→20:25)
[2023-07-08] MEDS: PARoxetine 20MG TABLET PO SCH (08:34)
[2023-07-08] MEDS: VITAMIN D 1,000 INTERNATIONAL UNITS TABLET PO SCH (08:34)
[2023-07-08] MEDS: CHLORTHALIDONE 25 MG TAB PO SCH (08:34)
[2023-07-08] MEDS: metFORMIN (GLUCOPHAGE) 500MG TAB PO SCH ×2 (08:34→16:42)
[2023-07-08] MEDS: POTASSIUM CHLORIDE 10MEQ SR TABLET PO SCH (08:34)
[2023-07-08] MEDS: LOSARTAN 25 MG TAB PO SCH (08:34)
[2023-07-08] MEDS: VANICREAM MOISTURIZING SKIN CREAM 113GM TUBE TOP SCH ×2 (08:35→20:31)
[2023-07-08] MEDS: CLOTRIMAZOLE 1% TOPICAL CREAM 30GM TOP SCH ×4 (08:35→20:30)
[2023-07-08] MEDS: LIDOCAINE 5% (LIDODERM) PATCH TD SCH (08:35)
[2023-07-08] MEDS: RIVAROXABAN 10MG TAB (XARELTO) PO SCH (16:42)
[2023-07-08] MEDS: ACETAMINOPHEN TAB 650MG DOSE (2X325MG) PO PRN (20:25)
[2023-07-09 04:23] VITALS: BP 123/69; TEMP 97.5; O2SAT 93
[2023-07-09] MEDS: LEVOTHYROXINE 25MCG TABLET (0.025MG) PO SCH (05:33)
[2023-07-09] MEDS: TIOTROPIUM INHALER/CAPSULE (SPIRIVA) INH SCH (08:04)
[2023-07-09] MEDS: SYMBICORT 80/4.5MCG INHALER 6GM INH SCH ×2 (08:04→19:58)
[2023-07-09] MEDS: ATORVASTATIN 20 MG TAB PO SCH (08:17)
[2023-07-09] MEDS: CHLORTHALIDONE 25 MG TAB PO SCH (08:18)
[2023-07-09] MEDS: metFORMIN (GLUCOPHAGE) 500MG TAB PO SCH ×2 (08:18→16:58)
[2023-07-09] MEDS: PARoxetine 20MG TABLET PO SCH (08:18)
[2023-07-09] MEDS: LOSARTAN 25 MG TAB PO SCH (08:18)
[2023-07-09] MEDS: BUMETANIDE 1 MG TAB PO SCH ×2 (08:18→16:58)
[2023-07-09] MEDS: SENOKOT S TAB PO SCH ×2 (08:18→20:49)
[2023-07-09] MEDS: VITAMIN D 1,000 INTERNATIONAL UNITS TABLET PO SCH (08:18)
[2023-07-09] MEDS: POTASSIUM CHLORIDE 10MEQ SR TABLET PO SCH (08:18)
[2023-07-09] MEDS: CLOTRIMAZOLE 1% TOPICAL CREAM 30GM TOP SCH ×4 (08:19→20:51)
[2023-07-09] MEDS: VANICREAM MOISTURIZING SKIN CREAM 113GM TUBE TOP SCH ×2 (08:19→20:51)
[2023-07-09] MEDS: LIDOCAINE 5% (LIDODERM) PATCH TD SCH (08:20)
[2023-07-09] MEDS: RIVAROXABAN 10MG TAB (XARELTO) PO SCH (16:58)
[2023-07-09] MEDS: ACETAMINOPHEN TAB 650MG DOSE (2X325MG) PO PRN (20:50)
[2023-07-10] MEDS: LEVOTHYROXINE 25MCG TABLET (0.025MG) PO SCH (05:30)
[2023-07-10 06:00] VITALS: BP 126/67; TEMP 97.3; O2SAT 93
[2023-07-10] MEDS: VITAMIN D 1,000 INTERNATIONAL UNITS TABLET PO SCH (08:00)
[2023-07-10] MEDS: ATORVASTATIN 20 MG TAB PO SCH (08:01)
[2023-07-10] MEDS: SENOKOT S TAB PO SCH ×2 (08:01→20:00)
[2023-07-10] MEDS: POTASSIUM CHLORIDE 10MEQ SR TABLET PO SCH (08:01)
[2023-07-10] MEDS: PARoxetine 20MG TABLET PO SCH (08:01)
[2023-07-10] MEDS: CHLORTHALIDONE 25 MG TAB PO SCH (08:01)
[2023-07-10] MEDS: BUMETANIDE 1 MG TAB PO SCH ×2 (08:01→16:58)
[2023-07-10] MEDS: metFORMIN (GLUCOPHAGE) 500MG TAB PO SCH ×2 (08:02→16:58)
[2023-07-10] MEDS: LOSARTAN 25 MG TAB PO SCH (08:02)
[2023-07-10] MEDS: LIDOCAINE 5% (LIDODERM) PATCH TD SCH (08:03)
[2023-07-10] MEDS: CLOTRIMAZOLE 1% TOPICAL CREAM 30GM TOP SCH ×4 (08:03→20:00)
[2023-07-10] MEDS: VANICREAM MOISTURIZING SKIN CREAM 113GM TUBE TOP SCH ×2 (08:03→19:58)
[2023-07-10] MEDS: TIOTROPIUM INHALER/CAPSULE (SPIRIVA) INH SCH (08:19)
[2023-07-10] MEDS: SYMBICORT 80/4.5MCG INHALER 6GM INH SCH ×2 (08:19→19:51)
[2023-07-10] MEDS: RIVAROXABAN 10MG TAB (XARELTO) PO SCH (16:59)
[2023-07-10] MEDS: ACETAMINOPHEN TAB 650MG DOSE (2X325MG) PO PRN (19:57)
[2023-07-11 05:26] VITALS: BP 113/72; TEMP 97.5; O2SAT 95
[2023-07-11] MEDS: LEVOTHYROXINE 25MCG TABLET (0.025MG) PO SCH (05:30)
[2023-07-11] MEDS: SYMBICORT 80/4.5MCG INHALER 6GM INH SCH ×2 (06:18→20:13)
[2023-07-11] MEDS: TIOTROPIUM INHALER/CAPSULE (SPIRIVA) INH SCH (06:18)
[2023-07-11] MEDS: VITAMIN D 1,000 INTERNATIONAL UNITS TABLET PO SCH (08:33)
[2023-07-11] MEDS: ATORVASTATIN 20 MG TAB PO SCH (08:33)
[2023-07-11] MEDS: POTASSIUM CHLORIDE 10MEQ SR TABLET PO SCH (08:33)
[2023-07-11] MEDS: LOSARTAN 25 MG TAB PO SCH (08:33)
[2023-07-11] MEDS: CHLORTHALIDONE 25 MG TAB PO SCH (08:33)
[2023-07-11] MEDS: PARoxetine 20MG TABLET PO SCH (08:33)
[2023-07-11] MEDS: SENOKOT S TAB PO SCH ×2 (08:33→19:22)
[2023-07-11] MEDS: metFORMIN (GLUCOPHAGE) 500MG TAB PO SCH ×2 (08:33→17:14)
[2023-07-11] MEDS: CLOTRIMAZOLE 1% TOPICAL CREAM 30GM TOP SCH ×4 (08:34→19:22)
[2023-07-11] MEDS: BUMETANIDE 1 MG TAB PO SCH ×2 (08:34→17:14)
[2023-07-11] MEDS: LIDOCAINE 5% (LIDODERM) PATCH TD SCH (08:34)
[2023-07-11] MEDS: VANICREAM MOISTURIZING SKIN CREAM 113GM TUBE TOP SCH ×2 (08:35→19:25)
[2023-07-11] MEDS: RIVAROXABAN 10MG TAB (XARELTO) PO SCH (17:14)
[2023-07-11] MEDS: ACETAMINOPHEN TAB 650MG DOSE (2X325MG) PO PRN (19:32)
[2023-07-12] MEDS: LEVOTHYROXINE 25MCG TABLET (0.025MG) PO SCH (05:26)
[2023-07-12 05:27] VITALS: BP 115/76; TEMP 97.5; O2SAT 97
[2023-07-12] MEDS: CLOTRIMAZOLE 1% TOPICAL CREAM 30GM TOP SCH ×4 (08:21→20:27)
[2023-07-12] MEDS: VANICREAM MOISTURIZING SKIN CREAM 113GM TUBE TOP SCH ×2 (08:21→20:28)
[2023-07-12] MEDS: LIDOCAINE 5% (LIDODERM) PATCH TD SCH (08:21)
[2023-07-12] MEDS: CHLORTHALIDONE 25 MG TAB PO SCH (08:22)
[2023-07-12] MEDS: SENOKOT S TAB PO SCH ×2 (08:22→20:27)
[2023-07-12] MEDS: VITAMIN D 1,000 INTERNATIONAL UNITS TABLET PO SCH (08:22)
[2023-07-12] MEDS: BUMETANIDE 1 MG TAB PO SCH ×2 (08:22→17:13)
[2023-07-12] MEDS: ATORVASTATIN 20 MG TAB PO SCH (08:22)
[2023-07-12] MEDS: POTASSIUM CHLORIDE 10MEQ SR TABLET PO SCH (08:22)
[2023-07-12] MEDS: LOSARTAN 25 MG TAB PO SCH (08:22)
[2023-07-12] MEDS: metFORMIN (GLUCOPHAGE) 500MG TAB PO SCH ×2 (08:23→17:13)
[2023-07-12] MEDS: PARoxetine 20MG TABLET PO SCH (08:23)
[2023-07-12] MEDS: SYMBICORT 80/4.5MCG INHALER 6GM INH SCH ×2 (16:36→19:47)
[2023-07-12] MEDS: TIOTROPIUM INHALER/CAPSULE (SPIRIVA) INH SCH (16:36)
[2023-07-12] MEDS: RIVAROXABAN 10MG TAB (XARELTO) PO SCH (17:13)
[2023-07-12] MEDS: ACETAMINOPHEN TAB 650MG DOSE (2X325MG) PO PRN (20:32)
[2023-07-13 05:38] VITALS: BP 124/81; TEMP 97.2; O2SAT 93
[2023-07-13] MEDS: LEVOTHYROXINE 25MCG TABLET (0.025MG) PO SCH (05:55)
[2023-07-13] MEDS: TIOTROPIUM INHALER/CAPSULE (SPIRIVA) INH SCH (07:26)
[2023-07-13] MEDS: SYMBICORT 80/4.5MCG INHALER 6GM INH SCH (07:27)
[2023-07-13] MEDS: CLOTRIMAZOLE 1% TOPICAL CREAM 30GM TOP SCH ×3 (09:11→16:10)
[2023-07-13] MEDS: LIDOCAINE 5% (LIDODERM) PATCH TD SCH (09:12)
[2023-07-13] MEDS: VANICREAM MOISTURIZING SKIN CREAM 113GM TUBE TOP SCH (09:12)
[2023-07-13 09:13] VITALS: BP 124/81
[2023-07-13] MEDS: PARoxetine 20MG TABLET PO SCH (09:13)
[2023-07-13] MEDS: LOSARTAN 25 MG TAB PO SCH (09:13)
[2023-07-13] MEDS: metFORMIN (GLUCOPHAGE) 500MG TAB PO SCH ×2 (09:13→16:10)
[2023-07-13] MEDS: VITAMIN D 1,000 INTERNATIONAL UNITS TABLET PO SCH (09:13)
[2023-07-13] MEDS: POTASSIUM CHLORIDE 10MEQ SR TABLET PO SCH (09:13)
[2023-07-13] MEDS: SENOKOT S TAB PO SCH (09:13)
[2023-07-13] MEDS: CHLORTHALIDONE 25 MG TAB PO SCH (09:13)
[2023-07-13] MEDS: BUMETANIDE 1 MG TAB PO SCH ×2 (09:13→16:12)
[2023-07-13] MEDS: ATORVASTATIN 20 MG TAB PO SCH (09:14)
[2023-07-13] MEDS ORDERED: CLOTR1CR TOP (11:58)
[2023-07-13] MEDS ORDERED: LOSA-527 PO (11:58)
[2023-07-13] MEDS ORDERED: METF500T13 PO (11:58)
[2023-07-13] MEDS ORDERED: CHLO25TA PO (11:58)
[2023-07-13] MEDS ORDERED: ATOR1TAB21 PO (11:58)
[2023-07-13] MEDS ORDERED: BENZ-18 PO (11:58)
[2023-07-13] MEDS ORDERED: POTA-298 PO (11:58)
[2023-07-13] MEDS ORDERED: ANOR1AER PO (11:58)
[2023-07-13] MEDS ORDERED: LIDO5TD TD (11:59)
[2023-07-13] MEDS ORDERED: LEVO25TA5 PO (12:34)
[2023-07-13] MEDS ORDERED: PARO20TA3 PO (12:34)
[2023-07-13] MEDS ORDERED: VENTAER INH (12:34)
[2023-07-13] MEDS ORDERED: BUME2TAB3 PO (12:34)
[2023-07-13] MEDS: RIVAROXABAN 10MG TAB (XARELTO) PO SCH (16:09)
[2023-07-13] MEDS ORDERED: INFLUENZA QUADRIVALENT PF VACCINE 0.5ML SYRINGE IM.IMMUN ONE (18:00)
== END 2023-07-13 18:46 | disposition home or self-care (01) ==
LOC: M ED 12:12 → M ED INP 12:13 → ENRESERV 22:54 → M MSPAV 23:12
PROVIDERS: ADMIT Internal Medicine; ATTEND Internal Medicine
DX: R26.89 Other abnormalities of gait and mobility (principal); R53.81 Other malaise; E66.01 Morbid (severe) obesity due to excess calories; E11.9 Type 2 diabetes mellitus without complications; Z79.51 Long term (current) use of inhaled steroids; Z79.84 Long term (current) use of oral hypoglycemic drugs; L30.4 Erythema intertrigo; E03.9 Hypothyroidism, unspecified; K21.9 Gastro-esophageal reflux disease without esophagitis; M10.9 Gout, unspecified; I11.9 Hypertensive heart disease without heart failure; I50.30 Unspecified diastolic (congestive) heart failure; Z79.2 Long term (current) use of antibiotics; F17.218 Nicotine dependence, cigarettes, with other nicotine-induced disorders; Z23 Encounter for immunization; Z79.899 Other long term (current) drug therapy; G47.33 Obstructive sleep apnea (adult) (pediatric); J44.9 Chronic obstructive pulmonary disease, unspecified; F41.9 Anxiety disorder, unspecified; F32.A Depression, unspecified

== ENCOUNTER → 2023-07-25 | Outpatient (REF) | payer OTHER ==
[~2023-07-25] MED LIST changes: +ANOR1AER PO; +ATOR1TAB21 PO; +BENZ-18 PO; +CHLO25TA PO; +CLOTR1CR TOP; +IPRA0.00 INH; +LIDO5TD TD; +LOSA-527 PO; +METF500T13 PO; +POTA-298 PO
[2023-07-25 17:51] LABS: ALBUMIN 2.3 G/DL (3.2-5.2); ALKALINE PHOSPHATASE 79 U/L (46-116); ALT/SGPT 29 U/L (7.0-40); AST/SGOT 20 U/L (<34); BILIRUBIN,TOTAL 0.6 MG/DL (0.3-1.2); BLOOD UREA NITROGEN 9 MG/DL (9-23); CALCIUM LEVEL 8.8 MG/DL (8.5-10.1); CARBON DIOXIDE LEVEL 30 MMOL/L (20-31); CHLORIDE LEVEL 109 MMOL/L (98-107); CREATININE FOR GFR 0.71 MG/DL (0.70-1.30); GLOMERULAR FILTRATION RATE > 60.0 (>56); GLUCOSE, FASTING 108 MG/DL (60-100); POTASSIUM SERUM 3.8 MMOL/L (3.5-5.1); SODIUM LEVEL 144 MMOL/L (136-145); TOTAL PROTEIN 6.1 G/DL (5.7-8.2)
== END ==
LOC: M LAB REF 16:53
PROVIDERS: ATTEND Nurse Practitioner Family
DX: E87.6 Hypokalemia (principal)

== ENCOUNTER 2024-01-17 04:47 | Inpatient (IN) | payer OTHER, MEDICAID ==
[~2024-01-17] VITALS: Ht 182.9 cm; Wt 291.1 kg
[2024-01-17 05:12] LABS: VENOUS BASE EXCESS 5.1 (-2.0-2.0); VENOUS HCO3 30.9 MMOL/L (23.0-27.0); VENOUS O2 SATURATION 89.6 % (60.0-80.0); VENOUS PARTIAL PRESSURE CO2 50.1 mmHg (38.0-50.0); VENOUS PARTIAL PRESSURE O2 54.7 mmHg (30.0-50.0); VENOUS PH 7.408 UNITS (7.330-7.430); VENOUS STANDARD HCO3 28.8 MMOL/L; VENOUS TOTAL CO2 32.4 MMOL/L (24.0-28.0)
[2024-01-17 05:21] LABS: BASO % 0.3 % (0.0-1.0); EOS # 0.3 10^3/uL (0.0-0.5); HEMATOCRIT 42.2 % (42.0-52.0); HEMOGLOBIN 13.2 g/dl (13.5-17.5); LYMPH # 1.7 10^3/uL (1.5-5.0); LYMPH % 18.9 % (24.0-44.0); MEAN CORPUSCULAR HEMOGLOBIN 30.2 pg (27.0-33.0); MEAN CORPUSCULAR HGB CONC 31.3 g/dl (32.0-36.5); MEAN CORPUSCULAR VOLUME 96.6 fl (80.0-96.0); MONO # 0.6 10^3/uL (0.0-0.8); MONO % 7.2 % (2.0-8.0); NEUTROPHILS # 6.3 10^3/uL (1.5-8.5); NEUTROPHILS % 70.3 % (36.0-66.0); PLATELET COUNT, AUTOMATED 271 10^3/uL (150-450); RED BLOOD COUNT 4.37 10^6/uL (4.30-6.10); WHITE BLOOD COUNT 8.9 10^3/uL (4.0-10.0)
[2024-01-17 05:44] LABS: CK-MB VALUE MASS 2.1 NG/ML (<3.6)
[2024-01-17 05:47] LABS: ALBUMIN 1.4 G/DL (3.2-5.2); ALKALINE PHOSPHATASE 82 U/L (46-116); ALT/SGPT 11 U/L (7.0-40); AST/SGOT 16 U/L (<34); BILIRUBIN,DIRECT 0.2 MG/DL (<0.4); BILIRUBIN,TOTAL 0.6 MG/DL (0.3-1.2); BLOOD UREA NITROGEN 8 MG/DL (9-23); CALCIUM LEVEL 7.8 MG/DL (8.5-10.1); CARBON DIOXIDE LEVEL 32 MMOL/L (20-31); CHLORIDE LEVEL 109 MMOL/L (98-107); CREATININE FOR GFR 0.84 MG/DL (0.70-1.30); GLOMERULAR FILTRATION RATE > 60.0 (>56); GLUCOSE, FASTING 104 MG/DL (60-100); POTASSIUM SERUM 3.7 MMOL/L (3.5-5.1); SODIUM LEVEL 146 MMOL/L (136-145); TOTAL PROTEIN 5.2 G/DL (5.7-8.2)
[2024-01-17 05:48] LABS: CPK CREATINE PHOSPHOKINASE 120 U/L (46-171); MB/CK RELATIVE INDEX 1.75 (< OR =4)
[2024-01-17] MEDS: FUROSEMIDE 40MG/4ML VIAL IV ONE (08:48)
[2024-01-17 09:11] LABS: ABG BASE EXCESS 5.1 (-2.0-2.0); ABG HCO3 30.2 MMOL/L (22.0-26.0); ABG O2 SATURATION 95.1 % (95.0-99.0); ABG PARTIAL PRESSURE CO2 46.3 mmHg (35.0-45.0); ABG PARTIAL PRESSURE O2 73.4 mmHg (75.0-100.0); ABG TOTAL CO2 31.7 MMOL/L (22.0-29.0); ABG pH (ARTERIAL) 7.433 UNITS (7.350-7.450)
[2024-01-17 10:20] LABS: CK-MB VALUE MASS 3.5 NG/ML (<3.6); MB/CK RELATIVE INDEX 2.82 (< OR =4)
[2024-01-17] MEDS: cefTRIAXone SOD 2 GM in D5W MINI-BAG PLUS 50 ML IV ONE (11:43)
[2024-01-17] MEDS ORDERED: GLUCOSE 4 GM CHEW PO PRN (13:00)
[2024-01-17] MEDS ORDERED: GLUCAGON INJ 1MG VIAL SC PRN (13:00)
[2024-01-17] MEDS ORDERED: DEXTROSE 50% 50ML SYRINGE IV PRN (13:00)
[2024-01-17] MEDS ORDERED: IPRATROPIUM 0.5MG/ALBUTEROL 2.5MG INH SOL UD 3ML (DUONEB) NEB PRN (13:00)
[2024-01-17 13:38] LABS: CHOLESTEROL RISK RATIO 4.7 (<5); HDL CHOLESTEROL 38.7 MG/DL (>40); LDL CHOLESTEROL 114.1 MG/DL (<100); NON-HDL-C 143.3 MG/DL
[2024-01-17 13:41] LABS: FREE T4 0.66 NG/DL (0.89-1.76); THYROID STIMULATING HORMONE 4.205 uIU/ML (0.55-4.78)
[2024-01-17 13:50] LABS: PROCALCITONIN 0.07 ng/ml
[2024-01-17 14:22] LABS: HEMOGLOBIN A1c 4.8 % (4.0-6.0)
[2024-01-17] MEDS ORDERED: COMMENT (14:31)
[2024-01-17] MEDS ORDERED: HOME MED LIST COMPLETE! XX SCH (14:35)
[2024-01-17 15:15] VITALS: BP 142/93; TEMP 97.3; O2SAT 95
[2024-01-17] MEDS: INSULIN LISPRO (NovoLOG) PER UNIT SC SCH ×2 (18:29→21:00)
[2024-01-17] MEDS: FUROSEMIDE 40MG/4ML VIAL IV SCH (18:29)
[2024-01-17] MEDS: LOSARTAN 25 MG TAB PO SCH (18:30)
[2024-01-17] MEDS ORDERED: DOXYCYCLINE HYCLATE 100MG TABLET PO SCH (21:00)
[2024-01-17] MEDS: DOXYCYCLINE HYCLATE 100MG TABLET PO SCH (21:18)
[2024-01-17] MEDS: VITAMIN D 1,000 INTERNATIONAL UNITS TABLET PO SCH (21:18)
[2024-01-17] MEDS: ENOXAPARIN 40MG/0.4ML SYRINGE (J1650 PER 10MG) SC SCH (21:19)
[2024-01-17] MEDS: LEVEMIR (INSULIN DETEMIR) 1 UNITS/0.01ML SC SCH (21:19)
[2024-01-17 22:00] VITALS: BP 159/89; TEMP 98.1; O2SAT 95
[2024-01-18 04:40] VITALS: BP 154/84; TEMP 97.9; O2SAT 94
[2024-01-18] MEDS: LEVOTHYROXINE 25MCG TABLET (0.025MG) PO SCH (05:59)
[2024-01-18 06:24] LABS: HEMATOCRIT 38.8 % (42.0-52.0); HEMOGLOBIN 11.8 g/dl (13.5-17.5); MEAN CORPUSCULAR HEMOGLOBIN 29.4 pg (27.0-33.0); MEAN CORPUSCULAR HGB CONC 30.4 g/dl (32.0-36.5); MEAN CORPUSCULAR VOLUME 96.5 fl (80.0-96.0); PLATELET COUNT, AUTOMATED 261 10^3/uL (150-450); RED BLOOD COUNT 4.02 10^6/uL (4.30-6.10); WHITE BLOOD COUNT 9.2 10^3/uL (4.0-10.0)
[2024-01-18 06:54] LABS: ALBUMIN 1.2 G/DL (3.2-5.2); ALKALINE PHOSPHATASE 69 U/L (46-116); ALT/SGPT 10 U/L (7.0-40); AST/SGOT 11 U/L (<34); BILIRUBIN,TOTAL 0.4 MG/DL (0.3-1.2); BLOOD UREA NITROGEN 12 MG/DL (9-23); CALCIUM LEVEL 7.9 MG/DL (8.5-10.1); CARBON DIOXIDE LEVEL 35 MMOL/L (20-31); CHLORIDE LEVEL 109 MMOL/L (98-107); CREATININE FOR GFR 0.96 MG/DL (0.70-1.30); GLOMERULAR FILTRATION RATE > 60.0 (>56); GLUCOSE, FASTING 107 MG/DL (60-100); POTASSIUM SERUM 3.6 MMOL/L (3.5-5.1); SODIUM LEVEL 146 MMOL/L (136-145); TOTAL PROTEIN 4.6 G/DL (5.7-8.2)
[2024-01-18] MEDS: ATORVASTATIN 20 MG TAB PO SCH (08:34)
[2024-01-18] MEDS ORDERED: NS 1,000 ML IV SCH (08:55)
[2024-01-18] MEDS ORDERED: cefTRIAXone SOD 2GM VIAL IM SCH (09:00)
[2024-01-18 12:00] VITALS: BP 151/98; TEMP 97.2; O2SAT 96
[2024-01-18] MEDS: cefTRIAXone SOD 2 GM in D5W MINI-BAG PLUS 50 ML IV SCH (12:56)
[2024-01-18] MEDS: D5W 1,000 ML IV SCH (12:56)
[2024-01-18 16:06] VITALS: BP 151/91; TEMP 97.3; O2SAT 95
[2024-01-18 17:18] VITALS: BP 153/93; TEMP 97.5; O2SAT 96
[2024-01-18 19:05] VITALS: BP 156/92; TEMP 98.1; O2SAT 96
[2024-01-18] MEDS: NYSTATIN 100,000 UNITS/GM TOPICAL PWD 15GM TOP SCH (22:06)
[2024-01-18] MEDS: VANICREAM MOISTURIZING SKIN CREAM 113GM TUBE TOP SCH (22:07)
[2024-01-18 22:10] VITALS: BP 157/94; TEMP 97.2; O2SAT 97
[2024-01-19 05:55] VITALS: BP 172/100; TEMP 97.9; O2SAT 95
[2024-01-19] MEDS: ACETAMINOPHEN TAB 650MG DOSE (2X325MG) PO PRN (05:57)
[2024-01-19 07:21] LABS: BLOOD UREA NITROGEN 12 MG/DL (9-23); CALCIUM LEVEL 7.7 MG/DL (8.5-10.1); CARBON DIOXIDE LEVEL 31 MMOL/L (20-31); CHLORIDE LEVEL 107 MMOL/L (98-107); CREATININE FOR GFR 0.82 MG/DL (0.70-1.30); GLOMERULAR FILTRATION RATE > 60.0 (>56); GLUCOSE, FASTING 97 MG/DL (60-100); MAGNESIUM LEVEL 1.8 MG/DL (1.8-2.4); POTASSIUM SERUM 5.4 MMOL/L (3.5-5.1); SODIUM LEVEL 142 MMOL/L (136-145)
[2024-01-19] MEDS ORDERED: SOD POLYSTYRENE SULFONATE SUSP 15GM 60ML UD PO ONE (08:30)
[2024-01-19] MEDS ORDERED: LACTULOSE 20GM/30ML SYRUP UDC PO ONE (08:30)
[2024-01-19] MEDS: METOPROLOL TART 50 MG TAB PO SCH (09:40)
[2024-01-19 10:35] VITALS: O2SAT 97
[2024-01-19 10:37] VITALS: O2SAT 95
[2024-01-19 12:51] VITALS: BP 138/48; TEMP 97.3; O2SAT 96
[2024-01-19 20:11] VITALS: BP 139/81; TEMP 97.9; O2SAT 91
[2024-01-20] VITALS (7 sets, daily range): BP systolic 139–157; BP diastolic 79–96; TEMP 97.3–97.9; O2SAT 90–96
[2024-01-20 07:13] LABS: HEMATOCRIT 37.9 % (42.0-52.0); HEMOGLOBIN 11.5 g/dl (13.5-17.5); MEAN CORPUSCULAR HEMOGLOBIN 29.9 pg (27.0-33.0); MEAN CORPUSCULAR HGB CONC 30.3 g/dl (32.0-36.5); MEAN CORPUSCULAR VOLUME 98.4 fl (80.0-96.0); PLATELET COUNT, AUTOMATED 251 10^3/uL (150-450); RED BLOOD COUNT 3.85 10^6/uL (4.30-6.10); WHITE BLOOD COUNT 6.4 10^3/uL (4.0-10.0)
[2024-01-20 07:41] LABS: BLOOD UREA NITROGEN 12 MG/DL (9-23); CARBON DIOXIDE LEVEL 38 MMOL/L (20-31); CHLORIDE LEVEL 104 MMOL/L (98-107); CREATININE FOR GFR 0.84 MG/DL (0.70-1.30); GLOMERULAR FILTRATION RATE > 60.0 (>56); GLUCOSE, FASTING 94 MG/DL (60-100); MAGNESIUM LEVEL 1.7 MG/DL (1.8-2.4); POTASSIUM SERUM 3.8 MMOL/L (3.5-5.1); SODIUM LEVEL 143 MMOL/L (136-145)
[2024-01-20] MEDS: MAG SULF 1GM/100ML (MAG RUN) 1 GM in IV 1 EA IV SCH (09:02)
[2024-01-20] MEDS: POTASSIUM CHLORIDE 10MEQ SR TABLET PO SCH (09:03)
[2024-01-20] MEDS ORDERED: MAG SULF 1GM/100ML (MAG RUN) 1 GM in IV 1 EA IV SCH (17:00)
[2024-01-21 04:17] VITALS: BP 139/82; TEMP 97.5; O2SAT 95
[2024-01-21 06:27] LABS: BASO % 0.3 % (0.0-1.0); EOS # 0.2 10^3/uL (0.0-0.5); EOS % 2.7 % (0.0-3.0); HEMATOCRIT 39.4 % (42.0-52.0); HEMOGLOBIN 12.2 g/dl (13.5-17.5); LYMPH # 1.2 10^3/uL (1.5-5.0); MEAN CORPUSCULAR HEMOGLOBIN 29.8 pg (27.0-33.0); MEAN CORPUSCULAR VOLUME 96.3 fl (80.0-96.0); MONO # 0.5 10^3/uL (0.0-0.8); MONO % 7.2 % (2.0-8.0); NEUTROPHILS # 5.1 10^3/uL (1.5-8.5); NEUTROPHILS % 72.5 % (36.0-66.0); PLATELET COUNT, AUTOMATED 262 10^3/uL (150-450); RED BLOOD COUNT 4.09 10^6/uL (4.30-6.10)
[2024-01-21 06:52] LABS: BLOOD UREA NITROGEN 12 MG/DL (9-23); CARBON DIOXIDE LEVEL 36 MMOL/L (20-31); CHLORIDE LEVEL 104 MMOL/L (98-107); CREATININE FOR GFR 0.75 MG/DL (0.70-1.30); GLOMERULAR FILTRATION RATE > 60.0 (>56); GLUCOSE, FASTING 97 MG/DL (60-100); MAGNESIUM LEVEL 1.8 MG/DL (1.8-2.4); SODIUM LEVEL 143 MMOL/L (136-145)
[2024-01-21 07:24] VITALS: O2SAT 81
[2024-01-21 12:15] VITALS: BP 155/94; TEMP 97.7; O2SAT 92
[2024-01-21 15:27] VITALS: BP 155/82; TEMP 97.3; O2SAT 89
[2024-01-21] MEDS ORDERED: SODIUM CHLORIDE 0.9% INJ 10 ML SYR IV PRN (16:55)
[2024-01-21] MEDS: SODIUM CHLORIDE 0.9% INJ 10 ML SYR IV SCH (17:34)
[2024-01-21 19:25] VITALS: O2SAT 94
[2024-01-21 20:00] VITALS: BP 149/81; TEMP 97.7; O2SAT 96
[2024-01-21] MEDS: ENOXAPARIN 60MG/0.6ML SYRINGE (J1650 PER 10MG) SC SCH (20:52)
[2024-01-22] VITALS (11 sets, daily range): BP systolic 133–162; BP diastolic 69–96; TEMP 97.3–97.9; O2SAT 82–97
[2024-01-22] MEDS: PERCOCET 5MG/325MG TAB PO PRN (04:07)
[2024-01-22 06:41] LABS: BASO % 0.3 % (0.0-1.0); EOS # 0.3 10^3/uL (0.0-0.5); EOS % 3.7 % (0.0-3.0); HEMATOCRIT 40.5 % (42.0-52.0); HEMOGLOBIN 12.1 g/dl (13.5-17.5); LYMPH # 1.3 10^3/uL (1.5-5.0); LYMPH % 18.2 % (24.0-44.0); MEAN CORPUSCULAR HEMOGLOBIN 29.1 pg (27.0-33.0); MEAN CORPUSCULAR HGB CONC 29.9 g/dl (32.0-36.5); MEAN CORPUSCULAR VOLUME 97.4 fl (80.0-96.0); MONO # 0.5 10^3/uL (0.0-0.8); MONO % 6.3 % (2.0-8.0); NEUTROPHILS # 5.2 10^3/uL (1.5-8.5); NEUTROPHILS % 71.1 % (36.0-66.0); PLATELET COUNT, AUTOMATED 278 10^3/uL (150-450); RED BLOOD COUNT 4.16 10^6/uL (4.30-6.10); WHITE BLOOD COUNT 7.3 10^3/uL (4.0-10.0)
[2024-01-22 07:21] LABS: BLOOD UREA NITROGEN 12 MG/DL (9-23); CALCIUM LEVEL 8.4 MG/DL (8.5-10.1); CARBON DIOXIDE LEVEL 39 MMOL/L (20-31); CHLORIDE LEVEL 103 MMOL/L (98-107); CREATININE FOR GFR 0.79 MG/DL (0.70-1.30); GLOMERULAR FILTRATION RATE > 60.0 (>56); GLUCOSE, FASTING 95 MG/DL (60-100); MAGNESIUM LEVEL 1.9 MG/DL (1.8-2.4); POTASSIUM SERUM 4.3 MMOL/L (3.5-5.1); SODIUM LEVEL 142 MMOL/L (136-145)
[2024-01-22] MEDS: MAG SULF 1GM/100ML (MAG RUN) 1 GM in IV 1 EA IV ONE (14:22)
[2024-01-22] MEDS: metOLazone 5 MG TAB PO ONE (16:34)
[2024-01-22] MEDS: FUROSEMIDE 40MG/4ML VIAL IV SCH (17:04)
[2024-01-22 18:11] LABS: IONIZED CALCIUM 4.4 MG/DL (4.5-5.3)
[2024-01-22 18:45] LABS: BLOOD UREA NITROGEN 11 MG/DL (9-23); CALCIUM LEVEL 8.5 MG/DL (8.5-10.1); CARBON DIOXIDE LEVEL 37 MMOL/L (20-31); CHLORIDE LEVEL 105 MMOL/L (98-107); CREATININE FOR GFR 0.81 MG/DL (0.70-1.30); GLOMERULAR FILTRATION RATE > 60.0 (>56); GLUCOSE, FASTING 91 MG/DL (60-100); POTASSIUM SERUM 4.3 MMOL/L (3.5-5.1); SODIUM LEVEL 144 MMOL/L (136-145)
[2024-01-23] VITALS (7 sets, daily range): BP systolic 133–148; BP diastolic 71–85; TEMP 97–97.7; O2SAT 90–94
[2024-01-23 00:12] LABS: IONIZED CALCIUM 4.2 MG/DL (4.5-5.3)
[2024-01-23 00:43] LABS: BLOOD UREA NITROGEN 11 MG/DL (9-23); CALCIUM LEVEL 8.5 MG/DL (8.5-10.1); CARBON DIOXIDE LEVEL 39 MMOL/L (20-31); CHLORIDE LEVEL 102 MMOL/L (98-107); CREATININE FOR GFR 0.83 MG/DL (0.70-1.30); GLOMERULAR FILTRATION RATE > 60.0 (>56); GLUCOSE, FASTING 97 MG/DL (60-100); MAGNESIUM LEVEL 1.9 MG/DL (1.8-2.4); POTASSIUM SERUM 4.2 MMOL/L (3.5-5.1); SODIUM LEVEL 143 MMOL/L (136-145)
[2024-01-23 06:14] LABS: IONIZED CALCIUM 4.5 MG/DL (4.5-5.3)
[2024-01-23 06:26] LABS: HEMATOCRIT 39.2 % (42.0-52.0); MEAN CORPUSCULAR HEMOGLOBIN 29.7 pg (27.0-33.0); MEAN CORPUSCULAR HGB CONC 30.6 g/dl (32.0-36.5); PLATELET COUNT, AUTOMATED 266 10^3/uL (150-450); RED BLOOD COUNT 4.04 10^6/uL (4.30-6.10); WHITE BLOOD COUNT 7.1 10^3/uL (4.0-10.0)
[2024-01-23 07:35] LABS: BLOOD UREA NITROGEN 10 MG/DL (9-23); CALCIUM LEVEL 8.9 MG/DL (8.5-10.1); CARBON DIOXIDE LEVEL > 40.0 MMOL/L (20-31); CHLORIDE LEVEL 100 MMOL/L (98-107); CREATININE FOR GFR 0.83 MG/DL (0.70-1.30); GLOMERULAR FILTRATION RATE > 60.0 (>56); GLUCOSE, FASTING 94 MG/DL (60-100); MAGNESIUM LEVEL 1.9 MG/DL (1.8-2.4); POTASSIUM SERUM 4.3 MMOL/L (3.5-5.1); SODIUM LEVEL 142 MMOL/L (136-145)
[2024-01-23] MEDS: metOLazone 5 MG TAB PO ONE (10:06)
[2024-01-23] MEDS: NEOSPORIN TOP OINT 15GM TOP SCH (10:42)
[2024-01-23] MEDS: FUROSEMIDE 40MG/4ML VIAL IV ONE (10:45)
[2024-01-23 11:14] LABS: C REACTIVE PROTEIN QUANTITATIV 0.5 MG/DL (<1.0)
[2024-01-23 11:23] LABS: PROCALCITONIN 0.08 ng/ml
[2024-01-23 12:12] LABS: IONIZED CALCIUM 4.4 MG/DL (4.5-5.3)
[2024-01-23 12:46] LABS: BLOOD UREA NITROGEN 12 MG/DL (9-23); CALCIUM LEVEL 9.2 MG/DL (8.5-10.1); CARBON DIOXIDE LEVEL > 40.0 MMOL/L (20-31); CHLORIDE LEVEL 100 MMOL/L (98-107); CREATININE FOR GFR 0.83 MG/DL (0.70-1.30); GLOMERULAR FILTRATION RATE > 60.0 (>56); GLUCOSE, FASTING 88 MG/DL (60-100); MAGNESIUM LEVEL 1.8 MG/DL (1.8-2.4); POTASSIUM SERUM 4.6 MMOL/L (3.5-5.1); SODIUM LEVEL 142 MMOL/L (136-145)
[2024-01-23] MEDS: CEFDINIR 300 MG CAP (OMNICEF) PO SCH (15:04)
[2024-01-23 18:32] LABS: IONIZED CALCIUM 4.4 MG/DL (4.5-5.3)
[2024-01-23] MEDS: MAG SULF 1GM/100ML (MAG RUN) 1 GM in IV 1 EA IV ONE (18:35)
[2024-01-23 19:26] LABS: BLOOD UREA NITROGEN 13 MG/DL (9-23); CARBON DIOXIDE LEVEL > 40.0 MMOL/L (20-31); CHLORIDE LEVEL 99 MMOL/L (98-107); CREATININE FOR GFR 0.82 MG/DL (0.70-1.30); GLOMERULAR FILTRATION RATE > 60.0 (>56); GLUCOSE, FASTING 108 MG/DL (60-100); MAGNESIUM LEVEL 1.8 MG/DL (1.8-2.4); POTASSIUM SERUM 3.9 MMOL/L (3.5-5.1); SODIUM LEVEL 141 MMOL/L (136-145)
[2024-01-23] MEDS: CALCIUM GLUCONATE 1,000 MG in D5W MINI-BAG PLUS 100 ML IV ONE (20:27)
[2024-01-24 03:30] VITALS: TEMP 97.5; O2SAT 98
[2024-01-24 03:42] VITALS: BP 150/92
[2024-01-24 06:46] LABS: BLOOD UREA NITROGEN 11 MG/DL (9-23); CALCIUM LEVEL 8.7 MG/DL (8.5-10.1); CARBON DIOXIDE LEVEL 38 MMOL/L (20-31); CHLORIDE LEVEL 99 MMOL/L (98-107); CREATININE FOR GFR 0.79 MG/DL (0.70-1.30); GLOMERULAR FILTRATION RATE > 60.0 (>56); GLUCOSE, FASTING 92 MG/DL (60-100); MAGNESIUM LEVEL 1.9 MG/DL (1.8-2.4); POTASSIUM SERUM 4.4 MMOL/L (3.5-5.1); SODIUM LEVEL 140 MMOL/L (136-145)
[2024-01-24] MEDS: metOLazone 5 MG TAB PO ONE (10:37)
[2024-01-24] MEDS: FUROSEMIDE 40MG/4ML VIAL IV ONE (11:15)
[2024-01-24 11:27] VITALS: BP 153/89; TEMP 97.7; O2SAT 94
[2024-01-24 12:00] VITALS: BP 134/80; TEMP 97.5; O2SAT 96
[2024-01-24 15:48] LABS: IONIZED CALCIUM 4.3 MG/DL (4.5-5.3)
[2024-01-24 16:10] LABS: BLOOD UREA NITROGEN 13 MG/DL (9-23); CALCIUM LEVEL 8.6 MG/DL (8.5-10.1); CARBON DIOXIDE LEVEL > 40.0 MMOL/L (20-31); CHLORIDE LEVEL 98 MMOL/L (98-107); CREATININE FOR GFR 0.87 MG/DL (0.70-1.30); GLOMERULAR FILTRATION RATE > 60.0 (>56); GLUCOSE, FASTING 102 MG/DL (60-100); MAGNESIUM LEVEL 1.9 MG/DL (1.8-2.4); POTASSIUM SERUM 4.2 MMOL/L (3.5-5.1); SODIUM LEVEL 139 MMOL/L (136-145)
[2024-01-24 21:50] VITALS: BP_SYST 134; BP_SYST 79; BP_DIAS 79; TEMP 97.5; O2SAT 95
[2024-01-25] VITALS (8 sets, daily range): BP systolic 132–138; BP diastolic 66–76; TEMP 97.2–98.2; O2SAT 93–96
[2024-01-25] MEDS: metOLazone 5 MG TAB PO ONE (08:47)
[2024-01-25] MEDS: MAGNESIUM OXIDE 400MG TAB (MAG-OX) PO SCH (08:48)
[2024-01-25] MEDS: FUROSEMIDE 40MG/4ML VIAL IV SCH (09:26)
[2024-01-25 09:58] LABS: BLOOD UREA NITROGEN 12 MG/DL (9-23); CALCIUM LEVEL 9.1 MG/DL (8.5-10.1); CARBON DIOXIDE LEVEL > 40.0 MMOL/L (20-31); CHLORIDE LEVEL 98 MMOL/L (98-107); CREATININE FOR GFR 0.84 MG/DL (0.70-1.30); GLOMERULAR FILTRATION RATE > 60.0 (>56); GLUCOSE, FASTING 114 MG/DL (60-100); MAGNESIUM LEVEL 1.9 MG/DL (1.8-2.4); SODIUM LEVEL 141 MMOL/L (136-145)
[2024-01-25 14:13] LABS: IONIZED CALCIUM 4.4 MG/DL (4.5-5.3)
[2024-01-25 14:45] LABS: BLOOD UREA NITROGEN 14 MG/DL (9-23); CALCIUM LEVEL 8.8 MG/DL (8.5-10.1); CARBON DIOXIDE LEVEL 40 MMOL/L (20-31); CHLORIDE LEVEL 96 MMOL/L (98-107); CREATININE FOR GFR 0.89 MG/DL (0.70-1.30); GLOMERULAR FILTRATION RATE > 60.0 (>56); GLUCOSE, FASTING 113 MG/DL (60-100); POTASSIUM SERUM 4.1 MMOL/L (3.5-5.1); SODIUM LEVEL 138 MMOL/L (136-145)
[2024-01-25 14:46] LABS: MAGNESIUM LEVEL 1.9 MG/DL (1.8-2.4)
[2024-01-25 23:09] LABS: BLOOD UREA NITROGEN 14 MG/DL (9-23); CALCIUM LEVEL 9.1 MG/DL (8.5-10.1); CARBON DIOXIDE LEVEL > 40.0 MMOL/L (20-31); CHLORIDE LEVEL 98 MMOL/L (98-107); CREATININE FOR GFR 0.94 MG/DL (0.70-1.30); GLOMERULAR FILTRATION RATE > 60.0 (>56); GLUCOSE, FASTING 102 MG/DL (60-100); POTASSIUM SERUM 4.2 MMOL/L (3.5-5.1); SODIUM LEVEL 141 MMOL/L (136-145)
[2024-01-26 03:00] VITALS: BP 156/85; TEMP 97.7; O2SAT 96
[2024-01-26 04:41] VITALS: BP 156/85; TEMP 97.7; O2SAT 90
[2024-01-26 05:31] VITALS: BP 136/79; TEMP 97.7; O2SAT 96
[2024-01-26 06:28] LABS: HEMATOCRIT 37.7 % (42.0-52.0); HEMOGLOBIN 11.8 g/dl (13.5-17.5); MEAN CORPUSCULAR HEMOGLOBIN 29.9 pg (27.0-33.0); MEAN CORPUSCULAR HGB CONC 31.3 g/dl (32.0-36.5); MEAN CORPUSCULAR VOLUME 95.4 fl (80.0-96.0); PLATELET COUNT, AUTOMATED 264 10^3/uL (150-450); RED BLOOD COUNT 3.95 10^6/uL (4.30-6.10); WHITE BLOOD COUNT 6.3 10^3/uL (4.0-10.0)
[2024-01-26 06:52] LABS: BLOOD UREA NITROGEN 14 MG/DL (9-23); CALCIUM LEVEL 9.3 MG/DL (8.5-10.1); CARBON DIOXIDE LEVEL > 40.0 MMOL/L (20-31); CHLORIDE LEVEL 97 MMOL/L (98-107); CREATININE FOR GFR 0.94 MG/DL (0.70-1.30); GLOMERULAR FILTRATION RATE > 60.0 (>56); GLUCOSE, FASTING 96 MG/DL (60-100); POTASSIUM SERUM 4.1 MMOL/L (3.5-5.1); SODIUM LEVEL 140 MMOL/L (136-145)
[2024-01-26 07:38] VITALS: BP 126/79; TEMP 97.6
[2024-01-26 11:48] VITALS: BP 134/82; TEMP 97.3; O2SAT 94
[2024-01-26] MEDS: metOLazone 5 MG TAB PO ONE (16:13)
[2024-01-26] MEDS: FUROSEMIDE 40MG/4ML VIAL IV ONE (16:14)
[2024-01-26 20:40] VITALS: BP 138/82; TEMP 97.5; O2SAT 93
[2024-01-27 00:04] LABS: BLOOD UREA NITROGEN 15 MG/DL (9-23); CALCIUM LEVEL 9.3 MG/DL (8.5-10.1); CARBON DIOXIDE LEVEL 40 MMOL/L (20-31); CHLORIDE LEVEL 96 MMOL/L (98-107); GLOMERULAR FILTRATION RATE > 60.0 (>56); GLUCOSE, FASTING 98 MG/DL (60-100); POTASSIUM SERUM 4.1 MMOL/L (3.5-5.1); SODIUM LEVEL 138 MMOL/L (136-145)
[2024-01-27 03:20] VITALS: BP 158/97; TEMP 97; O2SAT 90
[2024-01-27 07:08] LABS: BLOOD UREA NITROGEN 14 MG/DL (9-23); CALCIUM LEVEL 9.3 MG/DL (8.5-10.1); CARBON DIOXIDE LEVEL 39 MMOL/L (20-31); CHLORIDE LEVEL 98 MMOL/L (98-107); CREATININE FOR GFR 0.96 MG/DL (0.70-1.30); GLOMERULAR FILTRATION RATE > 60.0 (>56); GLUCOSE, FASTING 97 MG/DL (60-100); MAGNESIUM LEVEL 2.1 MG/DL (1.8-2.4); POTASSIUM SERUM 4.2 MMOL/L (3.5-5.1); SODIUM LEVEL 139 MMOL/L (136-145)
[2024-01-27] MEDS: metOLazone 5 MG TAB PO ONE ×2 (10:25→17:21)
[2024-01-27] MEDS: FUROSEMIDE 40MG/4ML VIAL IV ONE (10:26)
[2024-01-27 11:53] VITALS: BP 131/75; TEMP 97.7; O2SAT 94
[2024-01-27 17:13] LABS: IONIZED CALCIUM 4.2 MG/DL (4.5-5.3)
[2024-01-27] MEDS: FUROSEMIDE 40MG/4ML VIAL IV SCH (17:21)
[2024-01-27 17:23] VITALS: BP 146/86; TEMP 97.8; O2SAT 95
[2024-01-27 17:40] LABS: BLOOD UREA NITROGEN 16 MG/DL (9-23); CALCIUM LEVEL 9.1 MG/DL (8.5-10.1); CARBON DIOXIDE LEVEL 38 MMOL/L (20-31); CHLORIDE LEVEL 97 MMOL/L (98-107); CREATININE FOR GFR 1.11 MG/DL (0.70-1.30); GLOMERULAR FILTRATION RATE > 60.0 (>56); GLUCOSE, FASTING 103 MG/DL (60-100); MAGNESIUM LEVEL 2.2 MG/DL (1.8-2.4); POTASSIUM SERUM 4.4 MMOL/L (3.5-5.1); SODIUM LEVEL 137 MMOL/L (136-145)
[2024-01-27 20:00] VITALS: BP 141/71; TEMP 97.9; O2SAT 95
[2024-01-27 23:25] VITALS: BP 142/72; O2SAT 95
[2024-01-28] VITALS (7 sets, daily range): BP systolic 117–144; BP diastolic 60–74; TEMP 97–98.1; O2SAT 90–94
[2024-01-28 08:02] LABS: BLOOD UREA NITROGEN 15 MG/DL (9-23); CALCIUM LEVEL 9.3 MG/DL (8.5-10.1); CARBON DIOXIDE LEVEL 39 MMOL/L (20-31); CHLORIDE LEVEL 95 MMOL/L (98-107); CREATININE FOR GFR 1.13 MG/DL (0.70-1.30); GLOMERULAR FILTRATION RATE > 60.0 (>56); GLUCOSE, FASTING 96 MG/DL (60-100); MAGNESIUM LEVEL 2.3 MG/DL (1.8-2.4); POTASSIUM SERUM 4.1 MMOL/L (3.5-5.1); SODIUM LEVEL 137 MMOL/L (136-145)
[2024-01-28] MEDS: metOLazone 5 MG TAB PO ONE (08:55)
[2024-01-28] MEDS: FUROSEMIDE 40MG/4ML VIAL IV SCH (09:27)
[2024-01-29 04:00] VITALS: BP 131/68; TEMP 97.5; O2SAT 94
[2024-01-29 06:27] LABS: HEMATOCRIT 38.9 % (42.0-52.0); HEMOGLOBIN 12.3 g/dl (13.5-17.5); MEAN CORPUSCULAR HGB CONC 31.6 g/dl (32.0-36.5); MEAN CORPUSCULAR VOLUME 94.9 fl (80.0-96.0); PLATELET COUNT, AUTOMATED 292 10^3/uL (150-450); WHITE BLOOD COUNT 7.1 10^3/uL (4.0-10.0)
[2024-01-29 06:55] LABS: BLOOD UREA NITROGEN 18 MG/DL (9-23); CALCIUM LEVEL 9.4 MG/DL (8.5-10.1); CARBON DIOXIDE LEVEL > 40.0 MMOL/L (20-31); CHLORIDE LEVEL 96 MMOL/L (98-107); CREATININE FOR GFR 1.26 MG/DL (0.70-1.30); GLOMERULAR FILTRATION RATE > 60.0 (>56); GLUCOSE, FASTING 97 MG/DL (60-100); MAGNESIUM LEVEL 2.4 MG/DL (1.8-2.4); POTASSIUM SERUM 4.1 MMOL/L (3.5-5.1); SODIUM LEVEL 138 MMOL/L (136-145)
[2024-01-29 07:52] VITALS: O2SAT 92
[2024-01-29 12:00] VITALS: BP 140/68; TEMP 97.7; O2SAT 92
[2024-01-29 12:15] LABS: ABG BASE EXCESS 12.5 (-2.0-2.0); ABG HCO3 38.5 MMOL/L (22.0-26.0); ABG O2 SATURATION 97.2 % (95.0-99.0); ABG PARTIAL PRESSURE CO2 54.8 mmHg (35.0-45.0); ABG PARTIAL PRESSURE O2 91.7 mmHg (75.0-100.0); ABG STANDARD HCO3 36.3 MMOL/L. (22.0-26.0); ABG TOTAL CO2 40.1 MMOL/L (22.0-29.0); ABG pH (ARTERIAL) 7.464 UNITS (7.350-7.450)
[2024-01-29] MEDS: acetaZOLAMIDE 250MG TAB PO ONE (13:36)
[2024-01-29] MEDS: SYMBICORT 80/4.5MCG INHALER 6GM INH SCH (19:40)
[2024-01-29 20:00] VITALS: BP 136/59; TEMP 97.7; O2SAT 92
[2024-01-30] VITALS: BP 132/77
[2024-01-30 06:34] LABS: BASO % 0.4 % (0.0-1.0); EOS # 0.3 10^3/uL (0.0-0.5); EOS % 3.9 % (0.0-3.0); HEMATOCRIT 38.7 % (42.0-52.0); HEMOGLOBIN 12.2 g/dl (13.5-17.5); LYMPH # 1.8 10^3/uL (1.5-5.0); LYMPH % 23.8 % (24.0-44.0); MEAN CORPUSCULAR HEMOGLOBIN 29.9 pg (27.0-33.0); MEAN CORPUSCULAR HGB CONC 31.5 g/dl (32.0-36.5); MEAN CORPUSCULAR VOLUME 94.9 fl (80.0-96.0); MONO # 0.6 10^3/uL (0.0-0.8); MONO % 8.5 % (2.0-8.0); NEUTROPHILS # 4.7 10^3/uL (1.5-8.5); NEUTROPHILS % 62.9 % (36.0-66.0); PLATELET COUNT, AUTOMATED 281 10^3/uL (150-450); RED BLOOD COUNT 4.08 10^6/uL (4.30-6.10); WHITE BLOOD COUNT 7.5 10^3/uL (4.0-10.0)
[2024-01-30 06:46] LABS: BLOOD UREA NITROGEN 18 MG/DL (9-23); CALCIUM LEVEL 9.4 MG/DL (8.5-10.1); CARBON DIOXIDE LEVEL 33 MMOL/L (20-31); CHLORIDE LEVEL 100 MMOL/L (98-107); CREATININE FOR GFR 1.22 MG/DL (0.70-1.30); GLOMERULAR FILTRATION RATE > 60.0 (>56); GLUCOSE, FASTING 98 MG/DL (60-100); MAGNESIUM LEVEL 2.4 MG/DL (1.8-2.4); POTASSIUM SERUM 4.1 MMOL/L (3.5-5.1); SODIUM LEVEL 139 MMOL/L (136-145)
[2024-01-30 07:49] VITALS: O2SAT 92
[2024-01-30 10:00] VITALS: BP 126/71; TEMP 97.3; O2SAT 92
[2024-01-30 12:00] VITALS: BP 126/71; TEMP 97.3; O2SAT 92
[2024-01-30 20:21] VITALS: BP 122/70; TEMP 98.1; O2SAT 92
[2024-01-31 05:15] VITALS: BP 130/92; TEMP 97.9; O2SAT 93
[2024-01-31 07:48] LABS: BLOOD UREA NITROGEN 20 MG/DL (9-23); CARBON DIOXIDE LEVEL 30 MMOL/L (20-31); CHLORIDE LEVEL 102 MMOL/L (98-107); CREATININE FOR GFR 1.19 MG/DL (0.70-1.30); GLOMERULAR FILTRATION RATE > 60.0 (>56); GLUCOSE, FASTING 101 MG/DL (60-100); POTASSIUM SERUM 3.9 MMOL/L (3.5-5.1); SODIUM LEVEL 137 MMOL/L (136-145)
[2024-01-31 12:00] VITALS: BP 147/78; TEMP 97.7; O2SAT 92
[2024-01-31 20:58] VITALS: BP 142/75; TEMP 97.7; O2SAT 93
[2024-02-01 04:00] VITALS: BP 144/76; TEMP 97.5; O2SAT 94
[2024-02-01] MEDS: BUMETANIDE 1 MG TAB PO SCH (08:05)
[2024-02-01 12:00] VITALS: BP 123/79; TEMP 97.3; O2SAT 94
[2024-02-01 20:31] VITALS: BP 128/81; TEMP 97.9; O2SAT 92
[2024-02-02 06:28] VITALS: BP 146/79; TEMP 97.7; O2SAT 93
[2024-02-02 11:51] VITALS: BP 122/67; TEMP 97.5; O2SAT 94
[2024-02-02 19:49] VITALS: BP 122/68; TEMP 98.1; O2SAT 95
[2024-02-03 03:55] VITALS: BP 130/74; TEMP 97.7; O2SAT 93
[2024-02-03 07:31] LABS: BLOOD UREA NITROGEN 23 MG/DL (9-23); CARBON DIOXIDE LEVEL 31 MMOL/L (20-31); CHLORIDE LEVEL 104 MMOL/L (98-107); CREATININE FOR GFR 1.11 MG/DL (0.70-1.30); GLOMERULAR FILTRATION RATE > 60.0 (>56); GLUCOSE, FASTING 104 MG/DL (60-100); MAGNESIUM LEVEL 2.4 MG/DL (1.8-2.4); POTASSIUM SERUM 4.2 MMOL/L (3.5-5.1); SODIUM LEVEL 140 MMOL/L (136-145)
[2024-02-03 12:00] VITALS: BP 131/75; TEMP 97.5; O2SAT 94
[2024-02-03 20:00] VITALS: BP 129/73; TEMP 97.5; O2SAT 93
[2024-02-04 03:55] VITALS: BP 147/90; TEMP 97.5; O2SAT 94
[2024-02-04] MEDS: MAGNESIUM OXIDE 400MG TAB (MAG-OX) PO SCH (11:56)
[2024-02-04] MEDS: POTASSIUM CHLORIDE 10MEQ SR TABLET PO SCH (11:56)
[2024-02-04 12:00] VITALS: BP 125/85; TEMP 97.3; O2SAT 95
[2024-02-04 20:00] VITALS: BP 155/81; TEMP 98.1; O2SAT 93
[2024-02-04] MEDS: BUMETANIDE 1 MG TAB PO SCH (21:06)
[2024-02-05 04:00] VITALS: BP 152/81; TEMP 97.3; O2SAT 93
[2024-02-05 12:00] VITALS: BP 132/83; TEMP 97.9; O2SAT 93
[2024-02-05 20:00] VITALS: BP 139/89; TEMP 97.7; O2SAT 93
[2024-02-06 05:11] VITALS: BP 142/88; TEMP 97; O2SAT 94
[2024-02-06 12:00] VITALS: BP 128/75; TEMP 97.3; O2SAT 94
[2024-02-06 19:53] VITALS: BP 130/72; TEMP 97.5; O2SAT 93
[2024-02-07 04:00] VITALS: BP 127/85; TEMP 97.7; O2SAT 92
[2024-02-07 12:00] VITALS: BP 127/71; TEMP 97.9; O2SAT 94
[2024-02-07 20:00] VITALS: BP 120/66; TEMP 97.2; O2SAT 93
[2024-02-08 11:45] VITALS: BP 112/67; TEMP 97.7; O2SAT 92
[2024-02-08 20:00] VITALS: BP 132/82; TEMP 97.3; O2SAT 93
[2024-02-09 09:28] LABS: BASO % 0.5 % (0.0-1.0); EOS # 0.3 10^3/uL (0.0-0.5); EOS % 3.4 % (0.0-3.0); HEMATOCRIT 41.6 % (42.0-52.0); HEMOGLOBIN 12.9 g/dl (13.5-17.5); LYMPH # 1.9 10^3/uL (1.5-5.0); LYMPH % 23.3 % (24.0-44.0); MEAN CORPUSCULAR HEMOGLOBIN 29.7 pg (27.0-33.0); MEAN CORPUSCULAR VOLUME 95.6 fl (80.0-96.0); MONO # 0.5 10^3/uL (0.0-0.8); MONO % 6.2 % (2.0-8.0); NEUTROPHILS # 5.5 10^3/uL (1.5-8.5); NEUTROPHILS % 66.4 % (36.0-66.0); PLATELET COUNT, AUTOMATED 301 10^3/uL (150-450); RED BLOOD COUNT 4.35 10^6/uL (4.30-6.10); WHITE BLOOD COUNT 8.2 10^3/uL (4.0-10.0)
[2024-02-09 09:50] LABS: BLOOD UREA NITROGEN 22 MG/DL (9-23); CALCIUM LEVEL 9.4 MG/DL (8.5-10.1); CARBON DIOXIDE LEVEL 29 MMOL/L (20-31); CHLORIDE LEVEL 106 MMOL/L (98-107); CREATININE FOR GFR 1.05 MG/DL (0.70-1.30); GLOMERULAR FILTRATION RATE > 60.0 (>56); GLUCOSE, FASTING 114 MG/DL (60-100); POTASSIUM SERUM 4.2 MMOL/L (3.5-5.1); SODIUM LEVEL 142 MMOL/L (136-145)
[2024-02-09 11:40] VITALS: BP 135/57; TEMP 97.5; O2SAT 95
[2024-02-09 20:14] VITALS: BP 128/82; TEMP 97.5; O2SAT 93
[2024-02-10 04:00] VITALS: BP 143/79; TEMP 97.5; O2SAT 94
[2024-02-10 09:40] VITALS: BP 120/80
[2024-02-10 12:00] VITALS: BP 130/81; TEMP 97.5; O2SAT 92
[2024-02-10 20:09] VITALS: BP 130/73; TEMP 97.7; O2SAT 95
[2024-02-11 04:30] VITALS: BP 125/70; TEMP 98.7; O2SAT 95
[2024-02-11] MEDS ORDERED: MAGN400T2 PO (11:07)
[2024-02-11] MEDS ORDERED: LEVO25TA5 PO (11:07)
[2024-02-11] MEDS ORDERED: METO1TAB87 PO (11:07)
[2024-02-11] MEDS ORDERED: VENTAER INH (11:07)
[2024-02-11] MEDS ORDERED: VANI1CRE5 TOP (11:07)
[2024-02-11] MEDS ORDERED: NYST10006 TOP (11:07)
[2024-02-11] MEDS ORDERED: BUME2TAB3 PO (11:07)
[2024-02-11] MEDS ORDERED: POTA-136 PO (11:07)
[2024-02-11] MEDS ORDERED: ANOR1AER PO (11:07)
[2024-02-11] MEDS ORDERED: ATOR1TAB21 PO (11:07)
[2024-02-11] MEDS ORDERED: VITA200032 PO (11:07)
[2024-02-11] MEDS ORDERED: NEOM28OI TOP (11:10)
[2024-02-11 12:00] VITALS: BP 166/85; TEMP 97.7; O2SAT 95
[2024-02-11 20:00] VITALS: BP 117/76; TEMP 97.2; O2SAT 96
[2024-02-12 03:54] VITALS: BP 140/74; TEMP 97.5; O2SAT 95
[2024-02-12 12:25] VITALS: BP 142/75; TEMP 97.5; O2SAT 95
[2024-02-12 19:48] VITALS: BP 142/76; TEMP 98.1; O2SAT 96
[2024-02-13 03:52] VITALS: BP 142/77; TEMP 97.3; O2SAT 100
[2024-02-13 23:00] VITALS: BP 135/74; TEMP 97.2; O2SAT 98
[2024-02-14 06:00] VITALS: BP 138/75; TEMP 97.5; O2SAT 94
[2024-02-14 12:00] VITALS: BP 137/76; TEMP 97.5; O2SAT 95
[2024-02-14 20:00] VITALS: BP 138/76; TEMP 97.7; O2SAT 94
[2024-02-15 04:00] VITALS: BP 149/79; TEMP 97.2; O2SAT 96
[2024-02-15 12:00] VITALS: BP 145/74; TEMP 97.2; O2SAT 96
[2024-02-15 20:38] VITALS: BP 154/73; TEMP 97.5; O2SAT 96
[2024-02-16 12:00] VITALS: BP 120/65; TEMP 97.5; O2SAT 96
[2024-02-16 20:17] VITALS: BP 145/73; TEMP 97.7; O2SAT 95
[2024-02-17 04:00] VITALS: BP 141/73; TEMP 97.2; O2SAT 95
[2024-02-17 12:00] VITALS: BP 108/75; TEMP 97.7; O2SAT 95
[2024-02-17 20:00] VITALS: BP 133/67; TEMP 97.7; O2SAT 95
[2024-02-18 04:00] VITALS: BP 139/84; TEMP 97.3; O2SAT 93
[2024-02-18 12:00] VITALS: BP 142/95; TEMP 97.7; O2SAT 96
[2024-02-18 22:00] VITALS: BP 136/72; TEMP 97.9; O2SAT 98
[2024-02-19 05:07] VITALS: BP 153/87; TEMP 97.7; O2SAT 95
[2024-02-19 12:00] VITALS: BP 143/80; TEMP 97.9; O2SAT 95
[2024-02-19 20:00] VITALS: BP 128/75; TEMP 97.7; O2SAT 95
[2024-02-20 04:00] VITALS: BP 137/83; TEMP 97.5; O2SAT 94
[2024-02-20 06:11] LABS: HEMATOCRIT 38.4 % (42.0-52.0); HEMOGLOBIN 12.1 g/dl (13.5-17.5); MEAN CORPUSCULAR HEMOGLOBIN 30.3 pg (27.0-33.0); MEAN CORPUSCULAR HGB CONC 31.5 g/dl (32.0-36.5); PLATELET COUNT, AUTOMATED 254 10^3/uL (150-450); WHITE BLOOD COUNT 8.6 10^3/uL (4.0-10.0)
[2024-02-20 06:39] LABS: ALBUMIN 2.4 G/DL (3.2-5.2); ALKALINE PHOSPHATASE 81 U/L (46-116); ALT/SGPT 20 U/L (7.0-40); AST/SGOT 14 U/L (<34); BILIRUBIN,TOTAL 1.1 MG/DL (0.3-1.2); BLOOD UREA NITROGEN 22 MG/DL (9-23); CALCIUM LEVEL 8.9 MG/DL (8.5-10.1); CARBON DIOXIDE LEVEL 30 MMOL/L (20-31); CHLORIDE LEVEL 104 MMOL/L (98-107); CREATININE FOR GFR 1.11 MG/DL (0.70-1.30); GLOMERULAR FILTRATION RATE > 60.0 (>56); GLUCOSE, FASTING 101 MG/DL (60-100); POTASSIUM SERUM 4.3 MMOL/L (3.5-5.1); SODIUM LEVEL 140 MMOL/L (136-145); TOTAL PROTEIN 5.9 G/DL (5.7-8.2)
[2024-02-20 12:00] VITALS: BP 136/81; TEMP 97.3; O2SAT 95
[2024-02-20 20:00] VITALS: BP 133/89; TEMP 97.9; O2SAT 97
[2024-02-21 03:57] VITALS: BP 130/79; TEMP 97.3; O2SAT 96
[2024-02-21 06:06] LABS: HEMATOCRIT 38.6 % (42.0-52.0); HEMOGLOBIN 12.1 g/dl (13.5-17.5); MEAN CORPUSCULAR HEMOGLOBIN 29.8 pg (27.0-33.0); MEAN CORPUSCULAR HGB CONC 31.3 g/dl (32.0-36.5); MEAN CORPUSCULAR VOLUME 95.1 fl (80.0-96.0); PLATELET COUNT, AUTOMATED 255 10^3/uL (150-450); RED BLOOD COUNT 4.06 10^6/uL (4.30-6.10); WHITE BLOOD COUNT 9.3 10^3/uL (4.0-10.0)
[2024-02-21 06:33] LABS: ALBUMIN 2.4 G/DL (3.2-5.2); ALKALINE PHOSPHATASE 81 U/L (46-116); ALT/SGPT 22 U/L (7.0-40); AST/SGOT 15 U/L (<34); BILIRUBIN,TOTAL 1.1 MG/DL (0.3-1.2); BLOOD UREA NITROGEN 23 MG/DL (9-23); CALCIUM LEVEL 9.1 MG/DL (8.5-10.1); CARBON DIOXIDE LEVEL 30 MMOL/L (20-31); CHLORIDE LEVEL 104 MMOL/L (98-107); GLOMERULAR FILTRATION RATE > 60.0 (>56); GLUCOSE, FASTING 105 MG/DL (60-100); POTASSIUM SERUM 4.1 MMOL/L (3.5-5.1); SODIUM LEVEL 140 MMOL/L (136-145); TOTAL PROTEIN 5.9 G/DL (5.7-8.2)
[2024-02-21 12:00] VITALS: TEMP 97.3; O2SAT 96
[2024-02-21 19:38] VITALS: BP 130/72; TEMP 98.2; O2SAT 97
[2024-02-22 04:00] VITALS: BP 146/82; TEMP 97.5; O2SAT 95
[2024-02-22 08:36] LABS: ALBUMIN 2.3 G/DL (3.2-5.2); ALKALINE PHOSPHATASE 82 U/L (46-116); ALT/SGPT 23 U/L (7.0-40); AST/SGOT 25 U/L (<34); BILIRUBIN,TOTAL 0.9 MG/DL (0.3-1.2); BLOOD UREA NITROGEN 22 MG/DL (9-23); CALCIUM LEVEL 8.6 MG/DL (8.5-10.1); CARBON DIOXIDE LEVEL 25 MMOL/L (20-31); CHLORIDE LEVEL 105 MMOL/L (98-107); CREATININE FOR GFR 0.99 MG/DL (0.70-1.30); GLOMERULAR FILTRATION RATE > 60.0 (>56); GLUCOSE, FASTING 87 MG/DL (60-100); POTASSIUM SERUM 5.1 MMOL/L (3.5-5.1); SODIUM LEVEL 139 MMOL/L (136-145); TOTAL PROTEIN 5.9 G/DL (5.7-8.2)
[2024-02-22 11:58] LABS: HEMOGLOBIN 12.3 g/dl (13.5-17.5); MEAN CORPUSCULAR HEMOGLOBIN 30.2 pg (27.0-33.0); MEAN CORPUSCULAR HGB CONC 32.4 g/dl (32.0-36.5); MEAN CORPUSCULAR VOLUME 93.4 fl (80.0-96.0); PLATELET COUNT, AUTOMATED 265 10^3/uL (150-450); RED BLOOD COUNT 4.07 10^6/uL (4.30-6.10); WHITE BLOOD COUNT 8.5 10^3/uL (4.0-10.0)
[2024-02-22 12:07] VITALS: BP 118/73; TEMP 97.5; O2SAT 95
[2024-02-22 16:55] VITALS: BP 117/59
[2024-02-22] MEDS: FUROSEMIDE 80 MG TAB PO ONE (16:55)
[2024-02-22 20:49] VITALS: BP 125/63; TEMP 97.7; O2SAT 95
[2024-02-23 04:00] VITALS: BP 132/78; TEMP 97.2; O2SAT 96
[2024-02-23 06:33] LABS: HEMATOCRIT 36.4 % (42.0-52.0); HEMOGLOBIN 11.7 g/dl (13.5-17.5); MEAN CORPUSCULAR HEMOGLOBIN 30.2 pg (27.0-33.0); MEAN CORPUSCULAR HGB CONC 32.1 g/dl (32.0-36.5); MEAN CORPUSCULAR VOLUME 93.8 fl (80.0-96.0); PLATELET COUNT, AUTOMATED 258 10^3/uL (150-450); RED BLOOD COUNT 3.88 10^6/uL (4.30-6.10); WHITE BLOOD COUNT 8.7 10^3/uL (4.0-10.0)
[2024-02-23 06:53] LABS: ALBUMIN 2.3 G/DL (3.2-5.2); ALKALINE PHOSPHATASE 78 U/L (46-116); ALT/SGPT 23 U/L (7.0-40); AST/SGOT 19 U/L (<34); BILIRUBIN,TOTAL 0.8 MG/DL (0.3-1.2); BLOOD UREA NITROGEN 23 MG/DL (9-23); CALCIUM LEVEL 8.3 MG/DL (8.5-10.1); CARBON DIOXIDE LEVEL 26 MMOL/L (20-31); CHLORIDE LEVEL 105 MMOL/L (98-107); GLOMERULAR FILTRATION RATE > 60.0 (>56); GLUCOSE, FASTING 94 MG/DL (60-100); POTASSIUM SERUM 4.2 MMOL/L (3.5-5.1); SODIUM LEVEL 138 MMOL/L (136-145); TOTAL PROTEIN 5.7 G/DL (5.7-8.2)
[2024-02-23 08:16] VITALS: BP 133/75; TEMP 97.9; O2SAT 95
[2024-02-23] MEDS: BUMETANIDE 1 MG TAB PO SCH (09:00)
[2024-02-23] MEDS: FUROSEMIDE 80 MG TAB PO ONE (12:05)
[2024-02-23 12:08] VITALS: BP 133/74; TEMP 97.9; O2SAT 95
[2024-02-23 20:00] VITALS: BP 134/66; TEMP 97.5; O2SAT 94
[2024-02-23] MEDS: FUROSEMIDE 80 MG TAB PO SCH (22:53)
[2024-02-24 04:00] VITALS: BP 133/75; TEMP 97.7; O2SAT 95
[2024-02-24 07:20] LABS: HEMATOCRIT 39.4 % (42.0-52.0); HEMOGLOBIN 12.4 g/dl (13.5-17.5); MEAN CORPUSCULAR HGB CONC 31.5 g/dl (32.0-36.5); MEAN CORPUSCULAR VOLUME 95.4 fl (80.0-96.0); PLATELET COUNT, AUTOMATED 285 10^3/uL (150-450); RED BLOOD COUNT 4.13 10^6/uL (4.30-6.10); WHITE BLOOD COUNT 8.7 10^3/uL (4.0-10.0)
[2024-02-24 07:43] LABS: ALBUMIN 2.5 G/DL (3.2-5.2); ALKALINE PHOSPHATASE 87 U/L (46-116); ALT/SGPT 24 U/L (7.0-40); AST/SGOT 17 U/L (<34); BLOOD UREA NITROGEN 21 MG/DL (9-23); CALCIUM LEVEL 9.1 MG/DL (8.5-10.1); CARBON DIOXIDE LEVEL 31 MMOL/L (20-31); CHLORIDE LEVEL 106 MMOL/L (98-107); CREATININE FOR GFR 1.11 MG/DL (0.70-1.30); GLOMERULAR FILTRATION RATE > 60.0 (>56); GLUCOSE, FASTING 104 MG/DL (60-100); POTASSIUM SERUM 4.6 MMOL/L (3.5-5.1); SODIUM LEVEL 140 MMOL/L (136-145); TOTAL PROTEIN 6.2 G/DL (5.7-8.2)
[2024-02-24 07:48] VITALS: BP 144/92; TEMP 97.7; O2SAT 97
[2024-02-24 16:03] VITALS: BP 120/73; TEMP 98.1; O2SAT 96
[2024-02-24 21:14] VITALS: BP 123/78; TEMP 97.7; O2SAT 96
[2024-02-25 04:05] VITALS: BP 124/76; TEMP 97.7; O2SAT 94
[2024-02-25 07:50] LABS: HEMOGLOBIN 12.2 g/dl (13.5-17.5); MEAN CORPUSCULAR HEMOGLOBIN 30.3 pg (27.0-33.0); MEAN CORPUSCULAR HGB CONC 32.1 g/dl (32.0-36.5); MEAN CORPUSCULAR VOLUME 94.5 fl (80.0-96.0); PLATELET COUNT, AUTOMATED 286 10^3/uL (150-450); RED BLOOD COUNT 4.02 10^6/uL (4.30-6.10); WHITE BLOOD COUNT 8.1 10^3/uL (4.0-10.0)
[2024-02-25 08:13] LABS: ALBUMIN 2.5 G/DL (3.2-5.2); ALKALINE PHOSPHATASE 87 U/L (46-116); ALT/SGPT 22 U/L (7.0-40); AST/SGOT 16 U/L (<34); BILIRUBIN,TOTAL 1.1 MG/DL (0.3-1.2); BLOOD UREA NITROGEN 21 MG/DL (9-23); CALCIUM LEVEL 8.8 MG/DL (8.5-10.1); CARBON DIOXIDE LEVEL 30 MMOL/L (20-31); CHLORIDE LEVEL 104 MMOL/L (98-107); CREATININE FOR GFR 1.14 MG/DL (0.70-1.30); GLOMERULAR FILTRATION RATE > 60.0 (>56); GLUCOSE, FASTING 100 MG/DL (60-100); POTASSIUM SERUM 4.3 MMOL/L (3.5-5.1); SODIUM LEVEL 139 MMOL/L (136-145); TOTAL PROTEIN 6.1 G/DL (5.7-8.2)
[2024-02-25 12:00] VITALS: BP 140/80; TEMP 98.1; O2SAT 95
[2024-02-25] MEDS: BUMETANIDE 1 MG TAB PO SCH (16:21)
[2024-02-25 20:48] VITALS: BP 131/79; TEMP 97.3; O2SAT 96
[2024-02-26 04:00] VITALS: BP 147/76; TEMP 97.3; O2SAT 96
[2024-02-26 07:17] LABS: HEMATOCRIT 38.4 % (42.0-52.0); HEMOGLOBIN 12.4 g/dl (13.5-17.5); MEAN CORPUSCULAR HEMOGLOBIN 30.5 pg (27.0-33.0); MEAN CORPUSCULAR HGB CONC 32.3 g/dl (32.0-36.5); MEAN CORPUSCULAR VOLUME 94.3 fl (80.0-96.0); PLATELET COUNT, AUTOMATED 274 10^3/uL (150-450); RED BLOOD COUNT 4.07 10^6/uL (4.30-6.10); WHITE BLOOD COUNT 8.3 10^3/uL (4.0-10.0)
[2024-02-26 07:59] LABS: ALBUMIN 2.5 G/DL (3.2-5.2); ALKALINE PHOSPHATASE 86 U/L (46-116); ALT/SGPT 26 U/L (7.0-40); AST/SGOT 16 U/L (<34); BLOOD UREA NITROGEN 23 MG/DL (9-23); CARBON DIOXIDE LEVEL 32 MMOL/L (20-31); CHLORIDE LEVEL 103 MMOL/L (98-107); CREATININE FOR GFR 1.12 MG/DL (0.70-1.30); GLOMERULAR FILTRATION RATE > 60.0 (>56); GLUCOSE, FASTING 103 MG/DL (60-100); POTASSIUM SERUM 4.2 MMOL/L (3.5-5.1); SODIUM LEVEL 138 MMOL/L (136-145); TOTAL PROTEIN 6.1 G/DL (5.7-8.2)
[2024-02-26 08:39] VITALS: BP 127/73
[2024-02-26 12:00] VITALS: BP 125/71; TEMP 97.3; O2SAT 97
[2024-02-26] MEDS ORDERED: LOPR1TAB6 PO (12:56)
[2024-02-26] MEDS ORDERED: METF-839 PO (13:11)
[2024-02-26] MEDS ORDERED: METF500T13 PO (13:13)
== END 2024-02-26 15:12 | disposition home health service (06) | DRG 194 ==
LOC: M ED 04:47 → M ED INP 12:48 → M MSPAV 15:21
PROVIDERS: ADMIT Hospitalist; ATTEND Student in an Organized Health Care Education/Training Program
PROC: B246ZZZ Ultrasonography of Right and Left Heart (ICD-10-PCS; 2024-01-17)
PROC: 30233J1 Transfusion of Nonautologous Serum Albumin into Peripheral Vein, Percutaneous Approach (ICD-10-PCS; principal; 2024-01-18)
DX: I11.0 Hypertensive heart disease with heart failure (principal); J96.01 Acute respiratory failure with hypoxia; E87.3 Alkalosis; E87.20 Acidosis, unspecified; I95.9 Hypotension, unspecified; E66.2 Morbid (severe) obesity with alveolar hypoventilation; I27.20 Pulmonary hypertension, unspecified; I27.81 Cor pulmonale (chronic); Z68.45 Body mass index [BMI] 70 or greater, adult; E88.09 Other disorders of plasma-protein metabolism, not elsewhere classified; E78.5 Hyperlipidemia, unspecified; E11.9 Type 2 diabetes mellitus without complications; J44.9 Chronic obstructive pulmonary disease, unspecified; R33.9 Retention of urine, unspecified; Z79.890 Hormone replacement therapy; Z79.84 Long term (current) use of oral hypoglycemic drugs; Z79.899 Other long term (current) drug therapy; Z11.52 Encounter for screening for COVID-19; I50.33 Acute on chronic diastolic (congestive) heart failure; R26.89 Other abnormalities of gait and mobility; Z74.09 Other reduced mobility; E03.9 Hypothyroidism, unspecified; F41.9 Anxiety disorder, unspecified; L08.9 Local infection of the skin and subcutaneous tissue, unspecified; L30.4 Erythema intertrigo

== ENCOUNTER 2024-09-27 13:15 | Inpatient (IN) | payer MEDICAID, OTHER ==
[~2024-09-27 13:15] MED LIST changes: -ADV100INH INH; +ADVA1AER8 INH; +COMMENT; +LOPR1TAB6 PO; +MAGN400T2 PO; +METF-839 PO; +METO1TAB87 PO; +NEOM28OI TOP; +NYST10006 TOP; +NYST1POW3 TOP; -NYST1POW9 TOP; +POTA-136 PO; +VANI1CRE5 TOP
[2024-09-27 14:21] LABS: VENOUS BASE EXCESS 0.4 (-2.0-2.0); VENOUS HCO3 26.5 MMOL/L (23.0-27.0); VENOUS O2 SATURATION 84.1 % (60.0-80.0); VENOUS PARTIAL PRESSURE CO2 48.5 mmHg (38.0-50.0); VENOUS PARTIAL PRESSURE O2 48.1 mmHg (30.0-50.0); VENOUS PH 7.355 UNITS (7.330-7.430); VENOUS STANDARD HCO3 24.6 MMOL/L
[2024-09-27] MEDS: METOPROLOL TART 25 MG TABLET PO ONE (14:23)
[2024-09-27] MEDS: methylPREDNISolone 125MG 2ML VIAL IV ONE (14:23)
[2024-09-27] MEDS: IPRATROPIUM 0.5MG/ALBUTEROL 2.5MG INH SOL UD 3ML (DUONEB) NEB ONE ×2 (14:23→18:02)
[2024-09-27 14:25] LABS: BASO % 0.3 % (0.0-1.0); EOS # 0.1 10^3/uL (0.0-0.5); HEMATOCRIT 39.1 % (42.0-52.0); HEMOGLOBIN 12.3 g/dl (13.5-17.5); LYMPH # 0.3 10^3/uL (1.5-5.0); LYMPH % 4.5 % (24.0-44.0); MEAN CORPUSCULAR HEMOGLOBIN 30.4 pg (27.0-33.0); MEAN CORPUSCULAR HGB CONC 31.5 g/dl (32.0-36.5); MEAN CORPUSCULAR VOLUME 96.8 fl (80.0-96.0); MONO # 0.5 10^3/uL (0.0-0.8); MONO % 6.9 % (2.0-8.0); NEUTROPHILS # 5.9 10^3/uL (1.5-8.5); NEUTROPHILS % 86.9 % (36.0-66.0); PLATELET COUNT, AUTOMATED 281 10^3/uL (150-450); RED BLOOD COUNT 4.04 10^6/uL (4.30-6.10); WHITE BLOOD COUNT 6.8 10^3/uL (4.0-10.0)
[2024-09-27 14:57] LABS: CK-MB VALUE MASS 1.1 NG/ML (<3.6)
[2024-09-27 14:59] LABS: ALBUMIN 1.5 G/DL (3.2-5.2); ALKALINE PHOSPHATASE 80 U/L (40-129); ALT/SGPT 10 U/L (7.0-40); AST/SGOT 16 U/L (<34); BILIRUBIN,DIRECT 0.1 MG/DL (<0.4); BILIRUBIN,TOTAL 0.5 MG/DL (0.3-1.2); BLOOD UREA NITROGEN 12 MG/DL (9-23); CARBON DIOXIDE LEVEL 26 MMOL/L (20-31); CHLORIDE LEVEL 109 MMOL/L (98-107); CREATININE FOR GFR 1.25 MG/DL (0.70-1.30); GLOMERULAR FILTRATION RATE > 60.0 (>56); GLUCOSE, FASTING 86 MG/DL (60-100); POTASSIUM SERUM 4.1 MMOL/L (3.5-5.1); SODIUM LEVEL 144 MMOL/L (136-145); TOTAL PROTEIN 5.6 G/DL (5.7-8.2)
[2024-09-27 15:00] LABS: THYROXINE (T4) 4.2 UG/DL (4.5-10.9)
[2024-09-27 15:01] LABS: THYROID STIMULATING HORMONE 4.199 uIU/ML (0.55-4.78)
[2024-09-27 15:02] LABS: CPK CREATINE PHOSPHOKINASE 73 U/L (46-171)
[2024-09-27 15:51] LABS: CK-MB VALUE MASS < 1.0 NG/ML (<3.6)
[2024-09-27 15:52] LABS: CPK CREATINE PHOSPHOKINASE 64 U/L (46-171); MB/CK RELATIVE INDEX 1.56 (< OR =4)
[2024-09-27] MEDS ORDERED: MOM 30ML SUSPENSION UDC PO PRN (17:10)
[2024-09-27] MEDS ORDERED: hydrALAZINE 20MG/ML 1ML VIAL IV PRN (17:35)
[2024-09-27] MEDS ORDERED: DOXYCYCLINE HYCLATE 100MG TABLET PO ONE (17:35)
[2024-09-27] MEDS: COMBIVENT RESPIMAT 100-20MCG INHALER 4GM INH STA (17:46)
[2024-09-27] MEDS ORDERED: REMDESIVIR IV SCH (18:00)
[2024-09-27] MEDS ORDERED: NS IV SCH (18:00)
[2024-09-27] MEDS ORDERED: HOME MED LIST COMPLETE! XX SCH (18:00)
[2024-09-27] MEDS ORDERED: DEXTROSE 50% 50ML SYRINGE IV PRN (18:10)
[2024-09-27] MEDS ORDERED: GLUCAGON INJ 1MG VIAL SC PRN (18:10)
[2024-09-27] MEDS ORDERED: GLUCOSE 4 GM CHEW PO PRN (18:10)
[2024-09-27] MEDS: REMDESIVIR 200 MG in NS 250 ML IV ONE (18:48)
[2024-09-27] MEDS: METOPROLOL TART 50 MG TAB PO ONE (18:48)
[2024-09-27] MEDS: BUDESONIDE 0.5 MG/2 ML INHALATION SUSPENSION NEB SCH (20:23)
[2024-09-27] MEDS: IPRATROPIUM 0.5MG/ALBUTEROL 2.5MG INH SOL UD 3ML (DUONEB) NEB SCH (20:24)
[2024-09-27] MEDS: ATORVASTATIN 20 MG TAB PO SCH (20:50)
[2024-09-27] MEDS: DOCUSATE SODIUM 100MG CAPSULE PO SCH (20:50)
[2024-09-27] MEDS: DOXYCYCLINE HYCLATE 100MG TABLET PO SCH (20:50)
[2024-09-27] MEDS: methylPREDNISolone 125MG 2ML VIAL IV SCH (20:51)
[2024-09-27] MEDS: guaiFENesin ER TABLET 600 MG TAB PO SCH (20:51)
[2024-09-27] MEDS: ENOXAPARIN 60MG/0.6ML SYRINGE (J1650 PER 10MG) SC SCH (20:51)
[2024-09-27] MEDS: INSULIN LISPRO (NovoLOG) PER UNIT SC SCH (21:00)
[2024-09-28] MEDS: LEVOTHYROXINE 25MCG TABLET (0.025MG) PO SCH (06:26)
[2024-09-28] MEDS: ACETAMINOPHEN 325 MG TAB PO PRN (06:29)
[2024-09-28] MEDS: INSULIN LISPRO (NovoLOG) PER UNIT SC SCH (07:30)
[2024-09-28 08:37] LABS: CREATININE FOR GFR 1.42 MG/DL (0.70-1.30); MAGNESIUM LEVEL 1.9 MG/DL (1.8-2.4); POTASSIUM SERUM 4.6 MMOL/L (3.5-5.1)
[2024-09-28] MEDS ORDERED: methylPREDNISolone 125MG 2ML VIAL IV SCH (09:00)
[2024-09-28] MEDS: VANICREAM MOISTURIZING SKIN CREAM 113GM TUBE TOP SCH (09:00)
[2024-09-28] MEDS ORDERED: METOPROLOL TART 50 MG TAB PO SCH (09:00)
[2024-09-28] MEDS: FUROSEMIDE 40MG/4ML VIAL IV SCH (10:25)
[2024-09-28] MEDS: METOPROLOL TART 50 MG TAB PO SCH (10:26)
[2024-09-28 12:23] VITALS: BP 127/75; TEMP 98.5; O2SAT 97
[2024-09-28 13:00] VITALS: O2SAT 98
[2024-09-28] MEDS: REMDESIVIR 100 MG in NS 100 ML IV SCH (13:28)
[2024-09-28] MEDS: BUMETANIDE 1 MG TAB PO SCH (13:29)
[2024-09-28 14:00] VITALS: O2SAT 98
[2024-09-28 14:24] LABS: CALCIUM LEVEL 7.7 MG/DL (8.5-10.1); CREATININE FOR GFR 1.4 MG/DL (0.70-1.30); GLOMERULAR FILTRATION RATE 56.9 (>56)
[2024-09-28 20:00] VITALS: BP 147/76; TEMP 98; O2SAT 97
[2024-09-29] VITALS: BP 144/90; TEMP 97.6; O2SAT 97
[2024-09-29 04:00] VITALS: BP 153/88; TEMP 97.4; O2SAT 97
[2024-09-29 05:37] LABS: CALCIUM LEVEL 8.1 MG/DL (8.5-10.1); CREATININE FOR GFR 1.56 MG/DL (0.70-1.30); GLOMERULAR FILTRATION RATE 50.2 (>56); POTASSIUM SERUM 4.6 MMOL/L (3.5-5.1)
[2024-09-29 08:00] VITALS: BP 164/90; TEMP 97.6; O2SAT 98
[2024-09-29] MEDS ORDERED: IPRATROPIUM 0.5MG/ALBUTEROL 2.5MG INH SOL UD 3ML (DUONEB) NEB SCH (09:05)
[2024-09-29 12:34] VITALS: BP 162/105; TEMP 98.1; O2SAT 98
[2024-09-29] MEDS: BUDESONIDE 180MCG INHALER (PULMICORT FLEXHALER) INH SCH (20:00)
[2024-09-29 21:12] VITALS: BP 159/93; TEMP 98.1; O2SAT 96
[2024-09-30] VITALS (10 sets, daily range): BP systolic 145–163; BP diastolic 94–97; TEMP 97.5; O2SAT 86–96
[2024-09-30 05:52] LABS: CREATININE FOR GFR 1.54 MG/DL (0.70-1.30); MAGNESIUM LEVEL 1.9 MG/DL (1.8-2.4); POTASSIUM SERUM 4.2 MMOL/L (3.5-5.1)
[2024-09-30] MEDS: COMBIVENT RESPIMAT 100-20MCG INHALER 4GM INH SCH (07:11)
[2024-09-30 07:53] LABS: BASO % 0.1 % (0.0-1.0); EOS % 0.1 % (0.0-3.0); HEMATOCRIT 37.2 % (42.0-52.0); HEMOGLOBIN 11.2 g/dl (13.5-17.5); LYMPH # 1.9 10^3/uL (1.5-5.0); LYMPH % 26.3 % (24.0-44.0); MEAN CORPUSCULAR HEMOGLOBIN 29.9 pg (27.0-33.0); MEAN CORPUSCULAR HGB CONC 30.1 g/dl (32.0-36.5); MEAN CORPUSCULAR VOLUME 99.2 fl (80.0-96.0); MONO # 0.7 10^3/uL (0.0-0.8); MONO % 9.3 % (2.0-8.0); NEUTROPHILS # 4.6 10^3/uL (1.5-8.5); NEUTROPHILS % 63.9 % (36.0-66.0); PLATELET COUNT, AUTOMATED 252 10^3/uL (150-450); RED BLOOD COUNT 3.75 10^6/uL (4.30-6.10); WHITE BLOOD COUNT 7.2 10^3/uL (4.0-10.0)
[2024-09-30] MEDS: predniSONE 20 MG TAB PO SCH (09:12)
[2024-09-30] MEDS: ALBUTEROL 90 MCG/ACT 8GM HFA INHALER INH PRN (11:18)
[2024-09-30] MEDS ORDERED: METF-838 PO (11:55)
[2024-09-30] MEDS ORDERED: VENTAER INH (11:55)
[2024-09-30] MEDS ORDERED: ATOR1TAB21 PO (11:55)
[2024-09-30] MEDS ORDERED: LEVO25TA5 PO (11:55)
[2024-09-30] MEDS ORDERED: SYMB16INH INH (11:55)
[2024-09-30] MEDS ORDERED: LOPR1TAB6 PO (11:55)
[2024-09-30] MEDS ORDERED: PRED10TA2 PO (11:55)
[2024-10-01 04:15] VITALS: BP 160/87; TEMP 97.5; O2SAT 93
[2024-10-01 09:09] VITALS: BP 160/87
[2024-10-01] MEDS: FLUBLOK(EGGFREE) TRIVAL(24-25) VACCINE PF 0.5ML SYRINGE 18YRS & OLDER IM.IMMUN ONE (10:35)
== END 2024-10-01 15:57 | disposition home or self-care (01) | DRG 137 ==
LOC: M ED 13:15 → EDBD 13:15 → EDSEX 13:15 → M ED INP 17:24 → M ICU 09-28 11:50 → M MSPAV 09-29 12:35
PROVIDERS: ADMIT Student in an Organized Health Care Education/Training Program; ATTEND Internal Medicine
PROC: XW033E5 Introduction of Remdesivir Anti-infective into Peripheral Vein, Percutaneous Approach, New Technology Group 5 (ICD-10-PCS; principal; 2024-09-27)
DX: U07.1 COVID-19 (principal); N17.9 Acute kidney failure, unspecified; I11.0 Hypertensive heart disease with heart failure; E66.01 Morbid (severe) obesity due to excess calories; J44.1 Chronic obstructive pulmonary disease with (acute) exacerbation; E03.9 Hypothyroidism, unspecified; B35.1 Tinea unguium; J98.11 Atelectasis; I50.32 Chronic diastolic (congestive) heart failure; E78.5 Hyperlipidemia, unspecified; E11.9 Type 2 diabetes mellitus without complications; F17.210 Nicotine dependence, cigarettes, uncomplicated; I16.1 Hypertensive emergency; I89.0 Lymphedema, not elsewhere classified; Z91.148 Patient's other noncompliance with medication regimen for other reason

== ENCOUNTER 2024-11-13 03:43 | Inpatient (IN) | payer MEDICAID, OTHER ==
[~2024-11-13] VITALS: Ht 182.9 cm; Wt 272.7 kg
[~2024-11-13 03:43] MED LIST changes: +METF-838 PO; +PRED10TA2 PO
[2024-11-13] MEDS: predniSONE 20 MG TAB PO ONE (04:00)
[2024-11-13] MEDS: IPRATROPIUM 0.5MG/ALBUTEROL 2.5MG INH SOL UD 3ML NEB ONE ×3 (04:36→06:06)
[2024-11-13] MEDS ORDERED: SYMB16INH INH ×2 (06:27→09:05)
[2024-11-13] MEDS ORDERED: COMBAER6 INH (06:27)
[2024-11-13] MEDS ORDERED: PRED10TA2 PO (06:27)
[2024-11-13 08:29] LABS: BASO % 0.2 % (0.0-1.0); HEMATOCRIT 39.4 % (42.0-52.0); HEMOGLOBIN 12.4 g/dl (13.5-17.5); LYMPH # 0.5 10^3/uL (1.5-5.0); LYMPH % 3.8 % (24.0-44.0); MEAN CORPUSCULAR HEMOGLOBIN 30.5 pg (27.0-33.0); MEAN CORPUSCULAR HGB CONC 31.5 g/dl (32.0-36.5); MEAN CORPUSCULAR VOLUME 96.8 fl (80.0-96.0); MONO # 0.2 10^3/uL (0.0-0.8); MONO % 1.8 % (2.0-8.0); NEUTROPHILS # 11.2 10^3/uL (1.5-8.5); NEUTROPHILS % 93.8 % (36.0-66.0); PLATELET COUNT, AUTOMATED 268 10^3/uL (150-450); RED BLOOD COUNT 4.07 10^6/uL (4.30-6.10)
[2024-11-13] MEDS: IPRATROPIUM 0.5MG/ALBUTEROL 2.5MG INH SOL UD 3ML NEB SCH (08:48)
[2024-11-13 08:51] LABS: BLOOD UREA NITROGEN 8 MG/DL (9-23); CALCIUM LEVEL 7.7 MG/DL (8.5-10.1); CARBON DIOXIDE LEVEL 28 MMOL/L (20-31); CHLORIDE LEVEL 113 MMOL/L (98-107); CREATININE FOR GFR 1.29 MG/DL (0.70-1.30); GLOMERULAR FILTRATION RATE > 60.0 (>56); GLUCOSE, FASTING 130 MG/DL (60-100); MAGNESIUM LEVEL 1.9 MG/DL (1.8-2.4); SODIUM LEVEL 148 MMOL/L (136-145)
[2024-11-13] MEDS: OMEPRAZOLE 20MG CAP PO SCH (08:51)
[2024-11-13] MEDS: CEFDINIR 300 MG CAP (OMNICEF) PO SCH (08:51)
[2024-11-13] MEDS ORDERED: ATOR40TA75 PO (09:05)
[2024-11-13] MEDS ORDERED: SYNT25TA PO (09:05)
[2024-11-13] MEDS ORDERED: VENTAER INH (09:05)
[2024-11-13] MEDS ORDERED: METF-838 PO (09:05)
[2024-11-13] MEDS ORDERED: HOME MED LIST COMPLETE! XX SCH (09:05)
[2024-11-13] MEDS ORDERED: METO50TA7 PO (09:05)
[2024-11-13] MEDS: methylPREDNISolone 125MG 2ML VIAL IV SCH (11:49)
[2024-11-13] MEDS ORDERED: NICOTINE POLACRILEX 2 MG GUM PO PRN (13:30)
[2024-11-13] MEDS ORDERED: TIRZ2.5P SQ (13:44)
[2024-11-13] MEDS ORDERED: DEXTROSE 50% 50ML SYRINGE IV PRN (13:50)
[2024-11-13] MEDS ORDERED: GLUCOSE 4 GM CHEW PO PRN (13:50)
[2024-11-13] MEDS ORDERED: GLUCAGON INJ 1MG VIAL SC PRN (13:50)
[2024-11-13 14:00] VITALS: BP 183/112; TEMP 97.5; O2SAT 94
[2024-11-13 14:09] LABS: THYROID STIMULATING HORMONE 3.109 uIU/ML (0.55-4.78)
[2024-11-13] MEDS: POTASSIUM CHLORIDE 10MEQ SR TABLET PO ONE (14:32)
[2024-11-13] MEDS: metOLazone 5 MG TAB PO ONE (14:33)
[2024-11-13] MEDS: LEVOTHYROXINE 25MCG TABLET (0.025MG) PO SCH (14:33)
[2024-11-13] MEDS: ATORVASTATIN 20 MG TAB PO SCH (14:33)
[2024-11-13] MEDS: HEPARIN SOD (PORCINE) 5000UNITS/ML 1ML VIAL/SYRINGE SQ SCH (14:33)
[2024-11-13] MEDS: FUROSEMIDE 40MG/4ML VIAL IV SCH ×2 (14:34→17:52)
[2024-11-13] MEDS: NICOTINE 14 MG/24 HR TRANSDERMAL TD SCH (14:36)
[2024-11-13] MEDS: METOPROLOL TART 50 MG TAB PO ONE (14:36)
[2024-11-13 14:38] LABS: HEMOGLOBIN A1c 4.2 % (4.0-6.0)
[2024-11-13] MEDS: D5W 1,000 ML IV SCH (15:24)
[2024-11-13 16:19] VITALS: BP 176/92
[2024-11-13] MEDS: SPIRONOLACTONE 25 MG TAB PO SCH (17:25)
[2024-11-13] MEDS: INSULIN LISPRO (NovoLOG) PER UNIT SC SCH ×2 (17:25→21:00)
[2024-11-13] MEDS: cloNIDine 0.1MG TABLET PO ONE ×3 (17:26→20:56)
[2024-11-13] MEDS: METOPROLOL TART 50 MG TAB PO SCH (17:53)
[2024-11-13 18:42] VITALS: BP 184/99
[2024-11-13] MEDS ORDERED: FUROSEMIDE 40MG/4ML VIAL IV SCH (19:00)
[2024-11-13 19:19] LABS: IONIZED CALCIUM 4.3 MG/DL (4.5-5.3)
[2024-11-13] MEDS: NITROGLYCERIN 2% OINT 1 GM *U/D* PKT TOP ONE (19:44)
[2024-11-13 19:48] LABS: BLOOD UREA NITROGEN 9 MG/DL (9-23); CALCIUM LEVEL 7.5 MG/DL (8.5-10.1); CARBON DIOXIDE LEVEL 27 MMOL/L (20-31); CHLORIDE LEVEL 110 MMOL/L (98-107); CREATININE FOR GFR 1.29 MG/DL (0.70-1.30); GLOMERULAR FILTRATION RATE > 60.0 (>56); GLUCOSE, FASTING 178 MG/DL (60-100); MAGNESIUM LEVEL 1.9 MG/DL (1.8-2.4); POTASSIUM SERUM 3.3 MMOL/L (3.5-5.1); SODIUM LEVEL 144 MMOL/L (136-145)
[2024-11-13 20:00] VITALS: BP 185/105; TEMP 97.9; O2SAT 90
[2024-11-13] MEDS: SYMBICORT 160/4.5MCG INHALER 6GM INH SCH (20:40)
[2024-11-13] MEDS: MAGNESIUM OXIDE 400MG TAB (MAG-OX) PO SCH (20:55)
[2024-11-13] MEDS: NYSTATIN 100,000 UNITS/GM TOPICAL PWD 15GM TOP SCH (20:55)
[2024-11-13] MEDS: POTASSIUM CHLORIDE 10MEQ SR TABLET PO SCH (20:56)
[2024-11-13] MEDS: LanTUS (INSULIN GLARGINE INJ) 1 UNITS/0.01 ML SC SCH (21:00)
[2024-11-13] MEDS ORDERED: METOPROLOL TART 50 MG TAB PO SCH (21:00)
[2024-11-13] MEDS ORDERED: guaiFENesin SYRUP 200MG 10ML UDC PO PRN (21:15)
[2024-11-14 00:18] LABS: IONIZED CALCIUM 4.4 MG/DL (4.5-5.3)
[2024-11-14 00:46] LABS: CALCIUM LEVEL 7.7 MG/DL (8.5-10.1); CREATININE FOR GFR 1.43 MG/DL (0.70-1.30); GLOMERULAR FILTRATION RATE 59.3 (>56); POTASSIUM SERUM 3.3 MMOL/L (3.5-5.1)
[2024-11-14 01:30] VITALS: O2SAT 82
[2024-11-14 05:25] VITALS: BP 184/102; TEMP 97.7; O2SAT 91
[2024-11-14 05:44] LABS: HEMOGLOBIN 12.7 g/dl (13.5-17.5); MEAN CORPUSCULAR HEMOGLOBIN 31.1 pg (27.0-33.0); MEAN CORPUSCULAR HGB CONC 31.8 g/dl (32.0-36.5); PLATELET COUNT, AUTOMATED 292 10^3/uL (150-450); RED BLOOD COUNT 4.08 10^6/uL (4.30-6.10); WHITE BLOOD COUNT 12.3 10^3/uL (4.0-10.0)
[2024-11-14 06:16] LABS: BLOOD UREA NITROGEN 11 MG/DL (9-23); CALCIUM LEVEL 7.9 MG/DL (8.5-10.1); CARBON DIOXIDE LEVEL 28 MMOL/L (20-31); CHLORIDE LEVEL 106 MMOL/L (98-107); CHOLESTEROL LEVEL 170 MG/DL (<200); CHOLESTEROL RISK RATIO 3.92 (<5); CREATININE FOR GFR 1.35 MG/DL (0.70-1.30); GLOMERULAR FILTRATION RATE > 60.0 (>56); GLUCOSE, FASTING 151 MG/DL (60-100); HDL CHOLESTEROL 43.3 MG/DL (>40); LDL CHOLESTEROL 107.3 MG/DL (<100); NON-HDL-C 126.7 MG/DL; POTASSIUM SERUM 3.5 MMOL/L (3.5-5.1); SODIUM LEVEL 143 MMOL/L (136-145); TRIGLYCERIDES LEVEL 97 MG/DL (<150)
[2024-11-14] MEDS: CALCIUM GLUCONATE 1,000 MG in DEXTROSE 5% (D5W) MINI-BAG PLU 100 ML IV ONE (06:36)
[2024-11-14] MEDS: METOPROLOL SUCC (TopROL XL) 100MG *XL* TAB PO ONE (06:37)
[2024-11-14] MEDS: POTASSIUM CHLORIDE 10MEQ SR TABLET PO SCH (06:38)
[2024-11-14] MEDS: cloNIDine 0.1MG TABLET PO ONE (06:38)
[2024-11-14] MEDS: ISOSORBIDE DIN (ISORDIL) 10MG TAB PO SCH (08:42)
[2024-11-14] MEDS ORDERED: MOUNJARO 2.5 MG SQ SCH (09:00)
[2024-11-14 10:21] LABS: ABG BASE EXCESS 1.7 (-2.0-2.0); ABG HCO3 26.4 MMOL/L (22.0-26.0); ABG O2 SATURATION 91.2 % (95.0-99.0); ABG PARTIAL PRESSURE CO2 41.6 mmHg (35.0-45.0); ABG PARTIAL PRESSURE O2 59.5 mmHg (75.0-100.0); ABG STANDARD HCO3 25.9 MMOL/L. (22.0-26.0); ABG TOTAL CO2 27.7 MMOL/L (22.0-29.0)
[2024-11-14 12:16] VITALS: BP 142/76; TEMP 97.7; O2SAT 88
[2024-11-14] MEDS: **hydrALAZINE** 50 MG TAB PO SCH (12:27)
[2024-11-14 15:15] VITALS: O2SAT 89
[2024-11-14 19:45] VITALS: BP 158/78; TEMP 98.1; O2SAT 94
[2024-11-14] MEDS: METOPROLOL SUCC (TopROL XL) 100MG *XL* TAB PO SCH (21:03)
[2024-11-15 03:34] VITALS: BP 150/86; TEMP 98.1; O2SAT 96
[2024-11-15 06:47] LABS: HEMOGLOBIN 12.1 g/dl (13.5-17.5); MEAN CORPUSCULAR HEMOGLOBIN 30.3 pg (27.0-33.0); MEAN CORPUSCULAR HGB CONC 31.8 g/dl (32.0-36.5); PLATELET COUNT, AUTOMATED 285 10^3/uL (150-450); WHITE BLOOD COUNT 12.7 10^3/uL (4.0-10.0)
[2024-11-15 07:09] LABS: BLOOD UREA NITROGEN 16 MG/DL (9-23); CALCIUM LEVEL 8.1 MG/DL (8.5-10.1); CARBON DIOXIDE LEVEL 30 MMOL/L (20-31); CHLORIDE LEVEL 104 MMOL/L (98-107); GLOMERULAR FILTRATION RATE > 60.0 (>56); GLUCOSE, FASTING 131 MG/DL (60-100); POTASSIUM SERUM 3.6 MMOL/L (3.5-5.1); SODIUM LEVEL 141 MMOL/L (136-145)
[2024-11-15 10:22] VITALS: O2SAT 94
[2024-11-15] MEDS: FUROSEMIDE 40MG/4ML VIAL IV ONE ×2 (10:58→15:27)
[2024-11-15 11:07] VITALS: O2SAT 90
[2024-11-15 11:15] VITALS: O2SAT 93
[2024-11-15 12:00] VITALS: BP 161/106; TEMP 98.1; O2SAT 96
[2024-11-15] MEDS: cloNIDine 0.1MG TABLET PO ONE (15:27)
[2024-11-15] MEDS: **hydrALAZINE HCL** 25 MG TAB PO ONE (15:27)
[2024-11-15] MEDS ORDERED: cloNIDine 0.1MG TABLET PO SCH (16:55)
[2024-11-15 17:52] LABS: CREATININE FOR GFR 1.43 MG/DL (0.70-1.30); GLOMERULAR FILTRATION RATE 59.3 (>56); MAGNESIUM LEVEL 1.9 MG/DL (1.8-2.4); POTASSIUM SERUM 3.6 MMOL/L (3.5-5.1)
[2024-11-15] MEDS: ISOSORBIDE DIN. (ISORDIL) 20 MG TAB PO SCH (17:55)
[2024-11-15] MEDS: **hydrALAZINE** 50 MG TAB PO SCH (17:55)
[2024-11-15] MEDS ORDERED: **hydrALAZINE HCL** 25 MG TAB PO SCH (18:00)
[2024-11-15 19:41] VITALS: BP 155/87; TEMP 97.9; O2SAT 92
[2024-11-15] MEDS: FUROSEMIDE 40MG/4ML VIAL IV SCH (20:00)
[2024-11-15] MEDS: cloNIDine 0.1MG TABLET PO SCH (20:16)
[2024-11-15] MEDS: FORMOTEROL FUMARATE 20 MCG/2 ML INHALATION SOLUTION (PERFOROMIST) INH SCH (20:28)
[2024-11-16 04:12] VITALS: BP 170/82; TEMP 97.9; O2SAT 93
[2024-11-16 06:37] LABS: HEMATOCRIT 39.2 % (42.0-52.0); HEMOGLOBIN 12.7 g/dl (13.5-17.5); MEAN CORPUSCULAR HEMOGLOBIN 30.3 pg (27.0-33.0); MEAN CORPUSCULAR HGB CONC 32.4 g/dl (32.0-36.5); MEAN CORPUSCULAR VOLUME 93.6 fl (80.0-96.0); PLATELET COUNT, AUTOMATED 266 10^3/uL (150-450); RED BLOOD COUNT 4.19 10^6/uL (4.30-6.10); WHITE BLOOD COUNT 9.7 10^3/uL (4.0-10.0)
[2024-11-16 07:00] LABS: CALCIUM LEVEL 8.3 MG/DL (8.5-10.1); CREATININE FOR GFR 1.45 MG/DL (0.70-1.30); GLOMERULAR FILTRATION RATE 58.3 (>56); POTASSIUM SERUM 3.3 MMOL/L (3.5-5.1)
[2024-11-16] MEDS ORDERED: FUROSEMIDE 40MG/4ML VIAL IV ONE (07:00)
[2024-11-16] MEDS: FUROSEMIDE 40MG/4ML VIAL IV ONE ×2 (07:44→12:09)
[2024-11-16] MEDS: POTASSIUM CHLORIDE 10MEQ SR TABLET PO ONE (07:45)
[2024-11-16] MEDS: ISOSORBIDE DIN. (ISORDIL) 30 MG TAB PO SCH (07:46)
[2024-11-16] MEDS: MAG SULF 1GM/100ML (MAG RUN) 1 GM in IV 1 EA IV ONE (07:47)
[2024-11-16] MEDS: CALCIUM GLUCONATE 1,000 MG in DEXTROSE 5% (D5W) MINI-BAG PLU 100 ML IV ONE (09:22)
[2024-11-16] MEDS: CALCIUM CARBONATE 500 MG CHEW U/D PO SCH (09:23)
[2024-11-16] MEDS: MONTELUKAST 10 MG TAB PO ONE (09:26)
[2024-11-16] MEDS: guaiFENesin ER TABLET 600 MG TAB PO ONE (09:26)
[2024-11-16] MEDS: CETIRIZINE (ZyrTEC) 10 MG TAB PO ONE (09:26)
[2024-11-16 12:00] VITALS: BP 147/123; TEMP 97.9; O2SAT 92
[2024-11-16] MEDS: POTASSIUM CHLORIDE 10MEQ SR TABLET PO SCH (15:02)
[2024-11-16 17:29] LABS: IONIZED CALCIUM 4.3 MG/DL (4.5-5.3)
[2024-11-16 18:02] LABS: CALCIUM LEVEL 8.1 MG/DL (8.5-10.1); CREATININE FOR GFR 1.53 MG/DL (0.70-1.30); GLOMERULAR FILTRATION RATE 54.7 (>56); MAGNESIUM LEVEL 2.1 MG/DL (1.8-2.4); POTASSIUM SERUM 3.4 MMOL/L (3.5-5.1)
[2024-11-16 19:27] VITALS: BP 150/85; TEMP 97.9; O2SAT 91
[2024-11-16] MEDS: guaiFENesin ER TABLET 600 MG TAB PO SCH (22:03)
[2024-11-16] MEDS: FLUTICASONE PROP 0.05% NASAL SPRAY 16 GM (FLONASE) NARES SCH (22:07)
[2024-11-17 03:11] VITALS: BP 142/92; TEMP 97.9; O2SAT 92
[2024-11-17 05:59] LABS: HEMATOCRIT 35.9 % (42.0-52.0); HEMOGLOBIN 11.3 g/dl (13.5-17.5); MEAN CORPUSCULAR HGB CONC 31.5 g/dl (32.0-36.5); MEAN CORPUSCULAR VOLUME 95.2 fl (80.0-96.0); PLATELET COUNT, AUTOMATED 259 10^3/uL (150-450); RED BLOOD COUNT 3.77 10^6/uL (4.30-6.10)
[2024-11-17 06:23] LABS: CALCIUM LEVEL 7.9 MG/DL (8.5-10.1); CREATININE FOR GFR 1.48 MG/DL (0.70-1.30); GLOMERULAR FILTRATION RATE 56.9 (>56); MAGNESIUM LEVEL 2.2 MG/DL (1.8-2.4); POTASSIUM SERUM 3.7 MMOL/L (3.5-5.1)
[2024-11-17 10:41] LABS: ALBUMIN 1.7 G/DL (3.2-5.2)
[2024-11-17 11:54] VITALS: BP 148/81; TEMP 97.6; O2SAT 91
[2024-11-17] MEDS: methylPREDNISolone 40MG 1ML VIAL IV SCH (17:34)
[2024-11-17 20:48] VITALS: BP 158/72; TEMP 97.9; O2SAT 91
[2024-11-18 04:11] VITALS: BP 148/89; TEMP 97.9; O2SAT 93
[2024-11-18 05:23] LABS: HEMATOCRIT 36.8 % (42.0-52.0); HEMOGLOBIN 11.5 g/dl (13.5-17.5); MEAN CORPUSCULAR HEMOGLOBIN 30.1 pg (27.0-33.0); MEAN CORPUSCULAR HGB CONC 31.3 g/dl (32.0-36.5); MEAN CORPUSCULAR VOLUME 96.3 fl (80.0-96.0); PLATELET COUNT, AUTOMATED 239 10^3/uL (150-450); RED BLOOD COUNT 3.82 10^6/uL (4.30-6.10); WHITE BLOOD COUNT 9.6 10^3/uL (4.0-10.0)
[2024-11-18 05:47] LABS: BLOOD UREA NITROGEN 28 MG/DL (9-23); CALCIUM LEVEL 7.7 MG/DL (8.5-10.1); CARBON DIOXIDE LEVEL 33 MMOL/L (20-31); CHLORIDE LEVEL 103 MMOL/L (98-107); CREATININE FOR GFR 1.35 MG/DL (0.70-1.30); GLOMERULAR FILTRATION RATE > 60.0 (>56); GLUCOSE, FASTING 111 MG/DL (60-100); MAGNESIUM LEVEL 2.2 MG/DL (1.8-2.4); POTASSIUM SERUM 3.8 MMOL/L (3.5-5.1); SODIUM LEVEL 139 MMOL/L (136-145)
[2024-11-18 12:13] VITALS: BP 135/79; TEMP 97.9; O2SAT 94
[2024-11-18 20:00] VITALS: BP 133/71; TEMP 98.1; O2SAT 93
[2024-11-18 22:13] LABS: ALDOSTERONE LC < 1 ng/dL; RENIN ACTIVITY 0.12 ng/mL/h (0.25-5.82)
[2024-11-19 04:00] VITALS: BP 132/80; TEMP 97.5; O2SAT 96
[2024-11-19 05:02] LABS: HEMATOCRIT 38.9 % (42.0-52.0); HEMOGLOBIN 12.4 g/dl (13.5-17.5); MEAN CORPUSCULAR HEMOGLOBIN 30.5 pg (27.0-33.0); MEAN CORPUSCULAR HGB CONC 31.9 g/dl (32.0-36.5); MEAN CORPUSCULAR VOLUME 95.8 fl (80.0-96.0); PLATELET COUNT, AUTOMATED 246 10^3/uL (150-450); RED BLOOD COUNT 4.06 10^6/uL (4.30-6.10); WHITE BLOOD COUNT 10.1 10^3/uL (4.0-10.0)
[2024-11-19 05:24] LABS: BLOOD UREA NITROGEN 31 MG/DL (9-23); CALCIUM LEVEL 7.9 MG/DL (8.5-10.1); CARBON DIOXIDE LEVEL 30 MMOL/L (20-31); CHLORIDE LEVEL 103 MMOL/L (98-107); CREATININE FOR GFR 1.36 MG/DL (0.70-1.30); GLOMERULAR FILTRATION RATE > 60.0 (>56); GLUCOSE, FASTING 99 MG/DL (60-100); MAGNESIUM LEVEL 2.3 MG/DL (1.8-2.4); SODIUM LEVEL 140 MMOL/L (136-145)
[2024-11-19] MEDS ORDERED: HYDR50TA46 PO (11:44)
[2024-11-19] MEDS ORDERED: ISOS30TAB PO (11:44)
[2024-11-19] MEDS ORDERED: METO1TAB33 PO (11:44)
[2024-11-19 11:46] VITALS: BP 165/91
[2024-11-19] MEDS ORDERED: PRED20TA PO (11:46)
[2024-11-19] MEDS ORDERED: TORS20TA2 PO (11:54)
[2024-11-19 12:00] VITALS: BP 165/91; TEMP 97.3; O2SAT 93
== END 2024-11-19 14:24 | disposition home or self-care (01) | DRG 720 ==
LOC: M ED 03:43 → M ED INP 07:09 → M MSPAV 13:20
PROVIDERS: ADMIT General Practice; ATTEND Student in an Organized Health Care Education/Training Program
DX: A41.9 Sepsis, unspecified organism (principal); J44.1 Chronic obstructive pulmonary disease with (acute) exacerbation; I89.0 Lymphedema, not elsewhere classified; I12.9 Hypertensive chronic kidney disease with stage 1 through stage 4 chronic kidney disease, or unspecified chronic kidney disease; I87.2 Venous insufficiency (chronic) (peripheral); E11.22 Type 2 diabetes mellitus with diabetic chronic kidney disease; E66.2 Morbid (severe) obesity with alveolar hypoventilation; F17.210 Nicotine dependence, cigarettes, uncomplicated; E78.5 Hyperlipidemia, unspecified; E03.9 Hypothyroidism, unspecified; I50.9 Heart failure, unspecified; I16.0 Hypertensive urgency; E87.0 Hyperosmolality and hypernatremia; E87.6 Hypokalemia; Z68.45 Body mass index [BMI] 70 or greater, adult; B97.10 Unspecified enterovirus as the cause of diseases classified elsewhere; B97.89 Other viral agents as the cause of diseases classified elsewhere; Z79.899 Other long term (current) drug therapy; N17.9 Acute kidney failure, unspecified; J06.9 Acute upper respiratory infection, unspecified

== ENCOUNTER 2025-01-29 11:52 | Inpatient (IN) | payer OTHER ==
[~2025-01-29] VITALS: Ht 182.9 cm; Wt 247.0 kg
[~2025-01-29 11:52] MED LIST changes: +ACET-907 PO; +ACET32TAB PO; +AMIO200T54 PO; +ATOR40TA75 PO; +COMBAER6 INH; +ELIQ2.5T PO; +ELIQ5TAB PO; +EXCETAB22 PO; +HYDR50TA46 PO; +ISOS-18 PO; +ISOS10TA3 PO; +LEVO50TA5 PO; +MAGICMW SS; +METO1TAB33 PO; +METO50TA7 PO; +PANT40TA29 PO; -PHEN-239 PO; +PHEN37.511 PO; +SYNT25TA PO; +TIRZ2.5P SQ; +TOPI-257 PO; -TOPI100T9 PO; +TORS20TA2 PO; +VALA500T5 PO
[2025-01-30 01:50] VITALS: BP 134/65; O2SAT 96
[2025-01-30] MEDS ORDERED: ATOR40TA75 PO ×2 (02:48→10:50)
[2025-01-30] MEDS ORDERED: SYMB16INH INH (02:48)
[2025-01-30] MEDS ORDERED: NYST10006 TOP (02:49)
[2025-01-30] MEDS ORDERED: LEVO50TA5 PO ×2 (02:49→10:50)
[2025-01-30] MEDS ORDERED: ACET32TAB PO (02:49)
[2025-01-30] MEDS ORDERED: AMIO200T54 PO (02:49)
[2025-01-30] MEDS ORDERED: ELIQ5TAB PO ×2 (02:49→10:50)
[2025-01-30] MEDS ORDERED: IPRA0.00 NEB ×2 (02:49)
[2025-01-30] MEDS ORDERED: VALA500T5 PO (02:49)
[2025-01-30] MEDS ORDERED: PANT40TA29 PO ×2 (02:49→10:50)
[2025-01-30 04:04] LABS: PLATELET COUNT, AUTOMATED 145 10^3/uL (150-450)
[2025-01-30 04:15] LABS: ALT/SGPT < 9 U/L (7.0-40); AST/SGOT 16 U/L (<34); CALCIUM LEVEL 8.2 MG/DL (8.5-10.1); CARBON DIOXIDE LEVEL 25 MMOL/L (20-31); CHLORIDE LEVEL 100 MMOL/L (98-107); CREATININE FOR GFR 5.42 MG/DL (0.70-1.30); GLOMERULAR FILTRATION RATE 11.9 (>56); POTASSIUM SERUM 4.2 MMOL/L (3.5-5.1); SODIUM LEVEL 135 MMOL/L (136-145)
[2025-01-30 04:55] VITALS: BP 160/72; TEMP 97.3; O2SAT 98
[2025-01-30] MEDS: LEVOTHYROXINE 100 MCG TABLET (0.1 MG) PO SCH (05:39)
[2025-01-30] MEDS ORDERED: LEVOTHYROXINE 50 MCG TABLET (0.05 MG) PO SCH (06:00)
[2025-01-30 08:00] VITALS: BP 155/79; TEMP 98.2; O2SAT 99
[2025-01-30] MEDS: SYMBICORT 160/4.5MCG INHALER 6GM INH SCH (08:00)
[2025-01-30] MEDS ORDERED: AMIODARONE 200 MG TAB PO SCH (09:00)
[2025-01-30] MEDS: PANTOPRAZOLE 40MG TAB PO SCH (09:12)
[2025-01-30] MEDS ORDERED: SODIUM CHLORIDE 0.9% 1000 ML IV PRN (10:45)
[2025-01-30] MEDS ORDERED: HEPARIN 1,000 UNITS/ML 10 ML VIAL (FOR RADIOLOGY & DIALYSIS ONLY) IV PRN (10:45)
[2025-01-30] MEDS ORDERED: ACET1TAB55 PO (10:50)
[2025-01-30] MEDS ORDERED: NYST-38 SS (10:50)
[2025-01-30] MEDS ORDERED: PACE200T PO (10:50)
[2025-01-30] MEDS ORDERED: HOME MED LIST COMPLETE! XX SCH (11:05)
[2025-01-30] MEDS: AMIODARONE 200 MG TAB PO SCH (11:11)
[2025-01-30 11:43] VITALS: BP 130/60; TEMP 98.2; O2SAT 98
[2025-01-30] MEDS: TORSEMIDE 20 MG TAB PO SCH (12:05)
[2025-01-30] MEDS: APIXABAN 5 MG TAB PO SCH (12:05)
[2025-01-30] MEDS: SENNOSIDES/DOCUSATE SODIUM 8.6 MG/50MG TAB PO SCH (12:06)
[2025-01-30] MEDS: MIRALAX *UNIT DOSE* 17 GM PACKET PO SCH (12:06)
[2025-01-30 13:07] LABS: IRON (FE) 40 UG/DL (65-175); PERCENT SATURATION 18.9 % (19.7-50.0)
[2025-01-30] MEDS: DIALYSIS IV SCH (13:57)
[2025-01-30] MEDS: DARBEPOETIN IV SCH (13:57)
[2025-01-30] MEDS: HEPARIN 1,000 UNITS/ML 10 ML VIAL (FOR RADIOLOGY & DIALYSIS ONLY) XX SCH (14:04)
[2025-01-30 20:52] VITALS: BP 136/62; TEMP 98.2; O2SAT 96
[2025-01-30] MEDS: ATORVASTATIN 20 MG TAB PO SCH (21:38)
[2025-01-31] VITALS (10 sets, daily range): BP systolic 126–139; BP diastolic 62–73; TEMP 97–97.4; O2SAT 88–98
[2025-01-31] MEDS ORDERED: HEPARIN 1,000 UNITS/ML 10 ML VIAL (FOR RADIOLOGY & DIALYSIS ONLY) IV PRN (06:00)
[2025-01-31] MEDS ORDERED: HEPARIN 1,000 UNITS/ML 10 ML VIAL (FOR RADIOLOGY & DIALYSIS ONLY) XX SCH (06:00)
[2025-01-31] MEDS ORDERED: LIDOCAINE 1% SDV 5 ML VIAL SC PRN (06:00)
[2025-01-31] MEDS ORDERED: SODIUM CHLORIDE 0.9% 1000 ML IV PRN (06:00)
[2025-01-31 06:45] LABS: PLATELET COUNT, AUTOMATED 156 10^3/uL (150-450)
[2025-01-31 07:16] LABS: ALT/SGPT < 9 U/L (7.0-40); AST/SGOT 15 U/L (<34); CALCIUM LEVEL 8.2 MG/DL (8.5-10.1); CARBON DIOXIDE LEVEL 28 MMOL/L (20-31); CHLORIDE LEVEL 99 MMOL/L (98-107); CREATININE FOR GFR 6.26 MG/DL (0.70-1.30); GLOMERULAR FILTRATION RATE 10.0 (>56); MAGNESIUM LEVEL 1.7 MG/DL (1.8-2.4); POTASSIUM SERUM 4.6 MMOL/L (3.5-5.1); SODIUM LEVEL 135 MMOL/L (136-145)
[2025-01-31] MEDS: MAG SULF 1GM/100ML (MAG RUN) 1 GM in IV 1 EA IV SCH (12:06)
[2025-02-01 03:27] VITALS: BP 140/76; TEMP 97; O2SAT 94
[2025-02-01 06:07] LABS: PLATELET COUNT, AUTOMATED 162 10^3/uL (150-450)
[2025-02-01 07:06] LABS: ALT/SGPT < 9 U/L (7.0-40); AST/SGOT 13 U/L (<34); CALCIUM LEVEL 8.1 MG/DL (8.5-10.1); CARBON DIOXIDE LEVEL 29 MMOL/L (20-31); CHLORIDE LEVEL 99 MMOL/L (98-107); CREATININE FOR GFR 5.12 MG/DL (0.70-1.30); GLOMERULAR FILTRATION RATE 12.8 (>56); MAGNESIUM LEVEL 1.9 MG/DL (1.8-2.4); POTASSIUM SERUM 4.0 MMOL/L (3.5-5.1); SODIUM LEVEL 136 MMOL/L (136-145)
[2025-02-01 09:02] VITALS: BP 138/74; TEMP 97.4; O2SAT 94
[2025-02-01] MEDS: FUROSEMIDE 100 MG/10 ML VIAL IV SCH (14:50)
[2025-02-01 19:32] VITALS: BP 134/80; TEMP 97.1; O2SAT 93
[2025-02-02 03:19] VITALS: BP 160/87; TEMP 97.8; O2SAT 94
[2025-02-02 05:45] VITALS: O2SAT 94
[2025-02-02] MEDS ORDERED: LIDOCAINE 1% SDV 5 ML VIAL SC PRN (06:00)
[2025-02-02] MEDS ORDERED: SODIUM CHLORIDE 0.9% 1000 ML IV PRN (06:00)
[2025-02-02] MEDS ORDERED: HEPARIN 1,000 UNITS/ML 10 ML VIAL (FOR RADIOLOGY & DIALYSIS ONLY) XX SCH (06:00)
[2025-02-02] MEDS ORDERED: HEPARIN 1,000 UNITS/ML 10 ML VIAL (FOR RADIOLOGY & DIALYSIS ONLY) IV PRN (06:00)
[2025-02-02 07:40] VITALS: BP 154/78; TEMP 96.8; O2SAT 94
[2025-02-02 08:10] LABS: PLATELET COUNT, AUTOMATED 179 10^3/uL (150-450)
[2025-02-02 08:36] LABS: ALT/SGPT < 9 U/L (7.0-40); AST/SGOT 14 U/L (<34); CALCIUM LEVEL 8.4 MG/DL (8.5-10.1); CARBON DIOXIDE LEVEL 27 MMOL/L (20-31); CHLORIDE LEVEL 98 MMOL/L (98-107); CREATININE FOR GFR 6.12 MG/DL (0.70-1.30); GLOMERULAR FILTRATION RATE 10.3 (>56); MAGNESIUM LEVEL 1.9 MG/DL (1.8-2.4); POTASSIUM SERUM 4.0 MMOL/L (3.5-5.1); SODIUM LEVEL 135 MMOL/L (136-145)
[2025-02-02 14:22] VITALS: BP 154/92
[2025-02-02 16:00] VITALS: BP 124/68; TEMP 96.9; O2SAT 96
[2025-02-02 19:16] VITALS: BP 131/64; TEMP 97.7; O2SAT 94
[2025-02-03] MEDS: BENZONATATE 100 MG CAPSULE PO SCH (00:12)
[2025-02-03] MEDS: guaiFENesin/CODEINE SYRUP 5 ML UDC PO PRN (00:13)
[2025-02-03 03:20] VITALS: BP 142/72; TEMP 97; O2SAT 98
[2025-02-03] MEDS ORDERED: SODIUM CHLORIDE 0.9% 1000 ML IV PRN (06:00)
[2025-02-03] MEDS ORDERED: HEPARIN 1,000 UNITS/ML 10 ML VIAL (FOR RADIOLOGY & DIALYSIS ONLY) XX SCH (06:00)
[2025-02-03] MEDS ORDERED: HEPARIN 1,000 UNITS/ML 10 ML VIAL (FOR RADIOLOGY & DIALYSIS ONLY) IV PRN (06:00)
[2025-02-03 06:13] LABS: PLATELET COUNT, AUTOMATED 185 10^3/uL (150-450)
[2025-02-03 06:47] LABS: ALT/SGPT < 9 U/L (7.0-40); AST/SGOT 14 U/L (<34); CALCIUM LEVEL 8.3 MG/DL (8.5-10.1); CARBON DIOXIDE LEVEL 31 MMOL/L (20-31); CHLORIDE LEVEL 98 MMOL/L (98-107); CREATININE FOR GFR 4.86 MG/DL (0.70-1.30); GLOMERULAR FILTRATION RATE 13.6 (>56); MAGNESIUM LEVEL 1.8 MG/DL (1.8-2.4); POTASSIUM SERUM 3.8 MMOL/L (3.5-5.1); SODIUM LEVEL 137 MMOL/L (136-145)
[2025-02-03 07:39] VITALS: BP 146/90; TEMP 97.2; O2SAT 97
[2025-02-03 15:35] VITALS: BP 143/77; TEMP 96.7; O2SAT 96
[2025-02-03 19:17] VITALS: BP 133/61; TEMP 97.1; O2SAT 95
[2025-02-04 03:16] VITALS: BP 123/68; TEMP 96.9; O2SAT 97
[2025-02-04 06:26] LABS: PLATELET COUNT, AUTOMATED 175 10^3/uL (150-450)
[2025-02-04 06:57] LABS: ALT/SGPT < 9 U/L (7.0-40); AST/SGOT 14 U/L (<34); CALCIUM LEVEL 8.2 MG/DL (8.5-10.1); CARBON DIOXIDE LEVEL 30 MMOL/L (20-31); CHLORIDE LEVEL 98 MMOL/L (98-107); CREATININE FOR GFR 4.36 MG/DL (0.70-1.30); GLOMERULAR FILTRATION RATE 15.5 (>56); MAGNESIUM LEVEL 1.6 MG/DL (1.8-2.4); POTASSIUM SERUM 3.7 MMOL/L (3.5-5.1); SODIUM LEVEL 136 MMOL/L (136-145)
[2025-02-04 07:53] VITALS: BP 141/72; TEMP 96.7; O2SAT 99
[2025-02-04 15:42] VITALS: BP 133/79; TEMP 98.6; O2SAT 92
[2025-02-04 19:47] VITALS: BP 155/74; TEMP 97.6; O2SAT 93
[2025-02-05 04:02] VITALS: BP 162/83; TEMP 98; O2SAT 95
[2025-02-05] MEDS ORDERED: SODIUM CHLORIDE 0.9% 1000 ML IV PRN (06:00)
[2025-02-05] MEDS ORDERED: HEPARIN 1,000 UNITS/ML 10 ML VIAL (FOR RADIOLOGY & DIALYSIS ONLY) IV PRN (06:00)
[2025-02-05 06:59] LABS: PLATELET COUNT, AUTOMATED 210 10^3/uL (150-450)
[2025-02-05 07:45] LABS: ALT/SGPT < 9 U/L (7.0-40); AST/SGOT 16 U/L (<34); CALCIUM LEVEL 8.4 MG/DL (8.5-10.1); CARBON DIOXIDE LEVEL 29 MMOL/L (20-31); CHLORIDE LEVEL 98 MMOL/L (98-107); CREATININE FOR GFR 5.38 MG/DL (0.70-1.30); GLOMERULAR FILTRATION RATE 12.0 (>56); MAGNESIUM LEVEL 1.7 MG/DL (1.8-2.4); POTASSIUM SERUM 3.8 MMOL/L (3.5-5.1); SODIUM LEVEL 135 MMOL/L (136-145)
[2025-02-05 08:00] VITALS: BP 154/85; TEMP 97.6; O2SAT 96
[2025-02-05] MEDS: HEPARIN 1,000 UNITS/ML 10 ML VIAL (FOR RADIOLOGY & DIALYSIS ONLY) XX SCH (10:07)
[2025-02-05 15:58] VITALS: BP 136/76; TEMP 97.6; O2SAT 98
[2025-02-05 20:03] VITALS: BP 134/70; TEMP 97.8; O2SAT 98
[2025-02-05] MEDS: ACETAMINOPHEN 325 MG TAB PO PRN (20:21)
[2025-02-05] MEDS: IPRATROPIUM 0.5 MG/ALBUTEROL 2.5 MG INH SOL UD 3 ML NEB PRN (20:22)
[2025-02-06 00:27] VITALS: BP 132/63; TEMP 97; O2SAT 96
[2025-02-06 04:00] VITALS: BP 136/66; TEMP 97.1; O2SAT 95
[2025-02-06 06:59] LABS: PLATELET COUNT, AUTOMATED 202 10^3/uL (150-450)
[2025-02-06 07:33] LABS: ALT/SGPT < 9 U/L (7.0-40); AST/SGOT 15 U/L (<34); CALCIUM LEVEL 8.1 MG/DL (8.5-10.1); CARBON DIOXIDE LEVEL 30 MMOL/L (20-31); CHLORIDE LEVEL 99 MMOL/L (98-107); CREATININE FOR GFR 4.48 MG/DL (0.70-1.30); GLOMERULAR FILTRATION RATE 15.0 (>56); MAGNESIUM LEVEL 1.7 MG/DL (1.8-2.4); POTASSIUM SERUM 3.6 MMOL/L (3.5-5.1); SODIUM LEVEL 137 MMOL/L (136-145)
[2025-02-06 08:46] VITALS: BP 154/83; TEMP 98.7; O2SAT 99
[2025-02-06 14:00] VITALS: BP 136/88; TEMP 97.5; O2SAT 98
[2025-02-06 20:00] VITALS: BP 138/88; TEMP 97; O2SAT 98
[2025-02-07 04:00] VITALS: BP 139/88; TEMP 96.8; O2SAT 94
[2025-02-07] MEDS ORDERED: HEPARIN 1,000 UNITS/ML 10 ML VIAL (FOR RADIOLOGY & DIALYSIS ONLY) IV PRN (06:00)
[2025-02-07] MEDS ORDERED: SODIUM CHLORIDE 0.9% 1000 ML IV PRN (06:00)
[2025-02-07 06:21] LABS: PLATELET COUNT, AUTOMATED 221 10^3/uL (150-450)
[2025-02-07 06:43] LABS: ALT/SGPT < 9 U/L (7.0-40); AST/SGOT 16 U/L (<34); CALCIUM LEVEL 8.5 MG/DL (8.5-10.1); CARBON DIOXIDE LEVEL 30 MMOL/L (20-31); CHLORIDE LEVEL 100 MMOL/L (98-107); CREATININE FOR GFR 5.43 MG/DL (0.70-1.30); GLOMERULAR FILTRATION RATE 11.9 (>56); MAGNESIUM LEVEL 1.8 MG/DL (1.8-2.4); POTASSIUM SERUM 3.8 MMOL/L (3.5-5.1); SODIUM LEVEL 136 MMOL/L (136-145)
[2025-02-07 12:00] VITALS: BP 140/87; TEMP 97.5
[2025-02-07] MEDS: HEPARIN 1,000 UNITS/ML 10 ML VIAL (FOR RADIOLOGY & DIALYSIS ONLY) XX SCH (14:54)
[2025-02-07 20:25] VITALS: BP 151/82; TEMP 97; O2SAT 95
[2025-02-08 04:34] VITALS: BP 151/83; TEMP 97; O2SAT 94
[2025-02-08 12:00] VITALS: BP 153/87; TEMP 97.5
[2025-02-08 20:11] VITALS: BP 138/79; TEMP 98.1; O2SAT 93
[2025-02-09 04:04] VITALS: BP 139/85; TEMP 97; O2SAT 93
[2025-02-09] MEDS ORDERED: HEPARIN 1,000 UNITS/ML 10 ML VIAL (FOR RADIOLOGY & DIALYSIS ONLY) XX SCH (06:00)
[2025-02-09] MEDS ORDERED: SODIUM CHLORIDE 0.9% 1000 ML IV PRN (06:00)
[2025-02-09] MEDS ORDERED: HEPARIN 1,000 UNITS/ML 10 ML VIAL (FOR RADIOLOGY & DIALYSIS ONLY) IV PRN (06:00)
[2025-02-09 06:58] LABS: PLATELET COUNT, AUTOMATED 277 10^3/uL (150-450)
[2025-02-09 07:23] LABS: CALCIUM LEVEL 8.8 MG/DL (8.5-10.1); CARBON DIOXIDE LEVEL 29.0 MMOL/L (20-31); CHLORIDE LEVEL 99.0 MMOL/L (98-107); CREATININE FOR GFR 5.68 MG/DL (0.70-1.30); GLOMERULAR FILTRATION RATE 11.3 (>56); PHOSPHORUS LEVEL 4.4 MG/DL (2.5-4.9); POTASSIUM SERUM 4.3 MMOL/L (3.5-5.1); SODIUM LEVEL 137.0 MMOL/L (136-145)
[2025-02-09 07:42] VITALS: BP 147/89
[2025-02-09 12:00] VITALS: BP 153/94; TEMP 97.1; O2SAT 99
[2025-02-09 12:39] VITALS: BP 153/94; TEMP 97.2; O2SAT 99
[2025-02-09 19:51] VITALS: BP 148/93; TEMP 97.5; O2SAT 93
[2025-02-10 04:21] VITALS: BP 148/94; TEMP 97.5; O2SAT 96
[2025-02-10 06:18] LABS: PLATELET COUNT, AUTOMATED 270 10^3/uL (150-450)
[2025-02-10 06:41] LABS: CALCIUM LEVEL 8.6 MG/DL (8.5-10.1); CARBON DIOXIDE LEVEL 27.0 MMOL/L (20-31); CHLORIDE LEVEL 99.0 MMOL/L (98-107); CREATININE FOR GFR 6.61 MG/DL (0.70-1.30); GLOMERULAR FILTRATION RATE 9.4 (>56); POTASSIUM SERUM 4.5 MMOL/L (3.5-5.1); SODIUM LEVEL 136.0 MMOL/L (136-145)
[2025-02-10 07:53] LABS: PHOSPHORUS LEVEL 5.1 MG/DL (2.5-4.9)
[2025-02-10] MEDS ORDERED: HEPARIN 1,000 UNITS/ML 10 ML VIAL (FOR RADIOLOGY & DIALYSIS ONLY) XX SCH (08:45)
[2025-02-10] MEDS ORDERED: SODIUM CHLORIDE 0.9% 1000 ML IV PRN (08:45)
[2025-02-10] MEDS ORDERED: HEPARIN 1,000 UNITS/ML 10 ML VIAL (FOR RADIOLOGY & DIALYSIS ONLY) IV PRN (08:45)
[2025-02-10] MEDS ORDERED: TIRZ2.5P SQ (12:26)
[2025-02-10 20:50] VITALS: BP 145/96; TEMP 97.2; O2SAT 95
[2025-02-11 03:49] VITALS: BP 148/95; TEMP 97; O2SAT 97
[2025-02-11 07:39] LABS: CALCIUM LEVEL 8.6 MG/DL (8.5-10.1); CARBON DIOXIDE LEVEL 26.0 MMOL/L (20-31); CHLORIDE LEVEL 100.0 MMOL/L (98-107); CREATININE FOR GFR 5.02 MG/DL (0.70-1.30); GLOMERULAR FILTRATION RATE 13.1 (>56); PHOSPHORUS LEVEL 4.0 MG/DL (2.5-4.9); POTASSIUM SERUM 4.5 MMOL/L (3.5-5.1); SODIUM LEVEL 136.0 MMOL/L (136-145)
[2025-02-11 09:21] VITALS: BP 146/82; O2SAT 96
[2025-02-11] MEDS: AMIODARONE 200 MG TAB PO SCH (09:25)
[2025-02-11 12:00] VITALS: BP_SYST 143; BP_SYST 151; BP_DIAS 94; BP_DIAS 98; TEMP 97.7; TEMP 97.9; O2SAT 98
[2025-02-11 16:00] VITALS: BP 143/78; TEMP 98.1
[2025-02-11 21:57] VITALS: BP 153/97; TEMP 97.5; O2SAT 98
[2025-02-12] MEDS ORDERED: HEPARIN 1,000 UNITS/ML 10 ML VIAL (FOR RADIOLOGY & DIALYSIS ONLY) XX SCH (00:20)
[2025-02-12] MEDS ORDERED: SODIUM CHLORIDE 0.9% 1000 ML IV PRN (00:20)
[2025-02-12 03:53] VITALS: BP 155/97; TEMP 97.6; O2SAT 99
[2025-02-12 08:29] LABS: CALCIUM LEVEL 8.9 MG/DL (8.5-10.1); CARBON DIOXIDE LEVEL 24 MMOL/L (20-31); CHLORIDE LEVEL 102 MMOL/L (98-107); CREATININE FOR GFR 5.93 MG/DL (0.70-1.30); GLOMERULAR FILTRATION RATE 10.7 (>56); PHOSPHORUS LEVEL 5.1 MG/DL (2.5-4.9); POTASSIUM SERUM 5.1 MMOL/L (3.5-5.1); SODIUM LEVEL 138 MMOL/L (136-145)
[2025-02-12 12:00] VITALS: BP 147/95; TEMP 97.5; O2SAT 100
[2025-02-12] MEDS: HEPARIN 1,000 UNITS/ML 10 ML VIAL (FOR RADIOLOGY & DIALYSIS ONLY) IV PRN (16:55)
[2025-02-12 20:33] VITALS: BP 134/86; TEMP 97.8; O2SAT 98
[2025-02-13 04:18] VITALS: BP 152/92; TEMP 97.2; O2SAT 99
[2025-02-13 07:30] LABS: CALCIUM LEVEL 8.5 MG/DL (8.5-10.1); CARBON DIOXIDE LEVEL 25.0 MMOL/L (20-31); CHLORIDE LEVEL 102.0 MMOL/L (98-107); CREATININE FOR GFR 4.85 MG/DL (0.70-1.30); GLOMERULAR FILTRATION RATE 13.6 (>56); PHOSPHORUS LEVEL 4.1 MG/DL (2.5-4.9); POTASSIUM SERUM 4.3 MMOL/L (3.5-5.1); SODIUM LEVEL 138.0 MMOL/L (136-145)
[2025-02-13 12:00] VITALS: BP 139/90; TEMP 97.2
[2025-02-13 20:58] VITALS: BP 140/89; TEMP 96.8; O2SAT 98
[2025-02-14 04:00] VITALS: BP 140/88; TEMP 97.2; O2SAT 96
[2025-02-14] MEDS ORDERED: HEPARIN 1,000 UNITS/ML 10 ML VIAL (FOR RADIOLOGY & DIALYSIS ONLY) XX SCH (06:00)
[2025-02-14] MEDS ORDERED: SODIUM CHLORIDE 0.9% 1000 ML IV PRN (06:00)
[2025-02-14] MEDS ORDERED: HEPARIN 1,000 UNITS/ML 10 ML VIAL (FOR RADIOLOGY & DIALYSIS ONLY) IV PRN (06:00)
[2025-02-14 06:27] LABS: CALCIUM LEVEL 8.5 MG/DL (8.5-10.1); CARBON DIOXIDE LEVEL 26.0 MMOL/L (20-31); CHLORIDE LEVEL 103.0 MMOL/L (98-107); CREATININE FOR GFR 5.88 MG/DL (0.70-1.30); GLOMERULAR FILTRATION RATE 10.8 (>56); PHOSPHORUS LEVEL 5.2 MG/DL (2.5-4.9); POTASSIUM SERUM 4.0 MMOL/L (3.5-5.1); SODIUM LEVEL 139.0 MMOL/L (136-145)
[2025-02-14 08:47] VITALS: BP 147/91; TEMP 97.3; O2SAT 96
[2025-02-14 13:15] VITALS: BP 132/86; TEMP 96.8; O2SAT 99
[2025-02-14 20:48] VITALS: BP 134/85; TEMP 97.3; O2SAT 95
[2025-02-15 05:46] VITALS: BP 152/93; TEMP 97.5; O2SAT 98
[2025-02-15 06:52] LABS: CALCIUM LEVEL 8.8 MG/DL (8.5-10.1); CARBON DIOXIDE LEVEL 29.0 MMOL/L (20-31); CHLORIDE LEVEL 100.0 MMOL/L (98-107); CREATININE FOR GFR 4.66 MG/DL (0.70-1.30); GLOMERULAR FILTRATION RATE 14.3 (>56); PHOSPHORUS LEVEL 4.0 MG/DL (2.5-4.9); POTASSIUM SERUM 3.8 MMOL/L (3.5-5.1); SODIUM LEVEL 138.0 MMOL/L (136-145)
[2025-02-15 12:00] VITALS: BP 146/90; TEMP 97.5; O2SAT 96
[2025-02-16 06:14] VITALS: BP 116/81; TEMP 97.2; O2SAT 97
[2025-02-16 06:56] LABS: CALCIUM LEVEL 8.9 MG/DL (8.5-10.1); CARBON DIOXIDE LEVEL 29.0 MMOL/L (20-31); CHLORIDE LEVEL 100.0 MMOL/L (98-107); CREATININE FOR GFR 5.83 MG/DL (0.70-1.30); GLOMERULAR FILTRATION RATE 10.9 (>56); PHOSPHORUS LEVEL 5.1 MG/DL (2.5-4.9); POTASSIUM SERUM 4.1 MMOL/L (3.5-5.1); SODIUM LEVEL 140.0 MMOL/L (136-145)
[2025-02-16 12:50] VITALS: TEMP 97.2; O2SAT 97
[2025-02-16 13:00] VITALS: BP 156/91
[2025-02-16 19:57] VITALS: BP 154/89; TEMP 97.3; O2SAT 96
[2025-02-17 04:03] VITALS: BP 151/91; TEMP 97; O2SAT 98
[2025-02-17] MEDS ORDERED: HEPARIN 1,000 UNITS/ML 10 ML VIAL (FOR RADIOLOGY & DIALYSIS ONLY) IV PRN (06:00)
[2025-02-17] MEDS ORDERED: SODIUM CHLORIDE 0.9% 1000 ML IV PRN (06:00)
[2025-02-17 06:40] LABS: Estimated Ave Glu(eAG) 4.4 mmol/L
[2025-02-17] MEDS: HEPARIN 1,000 UNITS/ML 10 ML VIAL (FOR RADIOLOGY & DIALYSIS ONLY) XX SCH (14:59)
[2025-02-17 15:37] VITALS: BP 107/64; TEMP 97.2; O2SAT 97
[2025-02-17] MEDS: NYSTATIN 100,000 UNITS/GM TOPICAL PWD 15 GM TOP SCH (21:05)
[2025-02-18] MEDS ORDERED: SODIUM CHLORIDE 0.9% 1000 ML IV PRN (06:00)
[2025-02-18] MEDS ORDERED: HEPARIN 1,000 UNITS/ML 10 ML VIAL (FOR RADIOLOGY & DIALYSIS ONLY) IV PRN (06:00)
[2025-02-18] MEDS: HEPARIN 1,000 UNITS/ML 10 ML VIAL (FOR RADIOLOGY & DIALYSIS ONLY) XX SCH (12:54)
[2025-02-19 04:00] VITALS: TEMP 97.2; O2SAT 95
[2025-02-20 04:00] VITALS: BP 130/97; TEMP 98.4; O2SAT 94
[2025-02-20] MEDS ORDERED: HEPARIN 1,000 UNITS/ML 10 ML VIAL (FOR RADIOLOGY & DIALYSIS ONLY) IV PRN (06:00)
[2025-02-20] MEDS ORDERED: HEPARIN 1,000 UNITS/ML 10 ML VIAL (FOR RADIOLOGY & DIALYSIS ONLY) XX SCH (06:00)
[2025-02-20] MEDS ORDERED: SODIUM CHLORIDE 0.9% 1000 ML IV PRN (06:00)
[2025-02-20] MEDS: HEPARIN 1,000 UNITS/ML 10 ML VIAL (FOR RADIOLOGY & DIALYSIS ONLY) XX SCH (09:57)
[2025-02-21 05:17] VITALS: BP 150/92; TEMP 97.2; O2SAT 96
[2025-02-22 05:53] VITALS: BP 150/85; TEMP 97.7; O2SAT 98
[2025-02-23] MEDS ORDERED: HEPARIN 1,000 UNITS/ML 10 ML VIAL (FOR RADIOLOGY & DIALYSIS ONLY) IV PRN (00:35)
[2025-02-23] MEDS ORDERED: SODIUM CHLORIDE 0.9% 1000 ML IV PRN (00:35)
[2025-02-23 05:57] VITALS: BP 160/101; TEMP 97.3; O2SAT 97
[2025-02-23 06:31] LABS: PLATELET COUNT, AUTOMATED 207 10^3/uL (150-450)
[2025-02-23 06:48] LABS: CALCIUM LEVEL 8.4 MG/DL (8.5-10.1); CARBON DIOXIDE LEVEL 27.0 MMOL/L (20-31); CHLORIDE LEVEL 100.0 MMOL/L (98-107); CREATININE FOR GFR 6.82 MG/DL (0.70-1.30); GLOMERULAR FILTRATION RATE 9.0 (>56); PHOSPHORUS LEVEL 7.3 MG/DL (2.5-4.9); POTASSIUM SERUM 4.3 MMOL/L (3.5-5.1); SODIUM LEVEL 140.0 MMOL/L (136-145)
[2025-02-23 07:13] VITALS: BP 162/97
[2025-02-23] MEDS: SEVELAMER *CARBONate* 800 MG TAB PO SCH (08:00)
[2025-02-23] MEDS: HEPARIN 1,000 UNITS/ML 10 ML VIAL (FOR RADIOLOGY & DIALYSIS ONLY) XX SCH (14:38)
[2025-02-23 17:00] VITALS: BP 148/87
[2025-02-25 04:37] VITALS: BP 142/85; TEMP 97.5; O2SAT 96
[2025-02-25] MEDS ORDERED: HEPARIN 1,000 UNITS/ML 10 ML VIAL (FOR RADIOLOGY & DIALYSIS ONLY) IV PRN (06:00)
[2025-02-25] MEDS ORDERED: SODIUM CHLORIDE 0.9% 1000 ML IV PRN (06:00)
[2025-02-25] MEDS: HEPARIN 1,000 UNITS/ML 10 ML VIAL (FOR RADIOLOGY & DIALYSIS ONLY) XX SCH (15:14)
[2025-02-26 05:13] VITALS: BP 156/97
[2025-02-26 12:25] VITALS: BP 152/90; TEMP 97.5; O2SAT 97
[2025-02-26 19:05] VITALS: BP 113/53; TEMP 97.2; O2SAT 98
[2025-02-27 04:49] VITALS: BP 151/91; TEMP 97.5; O2SAT 96
[2025-02-27] MEDS ORDERED: SODIUM CHLORIDE 0.9% 1000 ML IV PRN (06:00)
[2025-02-27] MEDS ORDERED: HEPARIN 1,000 UNITS/ML 10 ML VIAL (FOR RADIOLOGY & DIALYSIS ONLY) IV PRN (06:00)
[2025-02-27] MEDS: HEPARIN 1,000 UNITS/ML 10 ML VIAL (FOR RADIOLOGY & DIALYSIS ONLY) XX SCH (09:20)
[2025-02-27] MEDS: DARBEPOETIN 200 MCG/0.4 ML *DIALYSIS* SYRINGE IV SCH (09:20)
[2025-02-28 05:04] VITALS: BP 152/92; TEMP 97.2; O2SAT 98
[2025-02-28] MEDS: FLUTICASONE PROPIONATE 0.05% NASAL SPRAY 16 GM NARES SCH (20:32)
[2025-02-28] MEDS: LORATADINE 10 MG TAB PO SCH (22:04)
[2025-03-01 05:43] VITALS: BP 151/93; TEMP 97.5; O2SAT 96
[2025-03-01] MEDS: IPRATROPIUM 0.5 MG/ALBUTEROL 2.5 MG INH SOL UD 3 ML NEB SCH (11:17)
[2025-03-02 05:25] VITALS: BP 153/95; TEMP 97; O2SAT 99
[2025-03-02] MEDS ORDERED: HEPARIN 1,000 UNITS/ML 10 ML VIAL (FOR RADIOLOGY & DIALYSIS ONLY) IV PRN (06:00)
[2025-03-02] MEDS ORDERED: HEPARIN 1,000 UNITS/ML 10 ML VIAL (FOR RADIOLOGY & DIALYSIS ONLY) XX SCH (06:00)
[2025-03-02] MEDS ORDERED: SODIUM CHLORIDE 0.9% 1000 ML IV PRN (06:00)
[2025-03-02] MEDS: ALBUTEROL 90 MCG/ACT 8 GM HFA INHALER INH SCH (07:23)
[2025-03-02 08:58] LABS: BASO # 0.0 10^3/uL (0.0-0.2); BASO % 0.4 % (0.0-1.0); EOS # 0.3 10^3/uL (0.0-0.5); EOS % 3.8 % (0.0-3.0); LYMPH # 1.5 10^3/uL (1.5-5.0); LYMPH % 18.9 % (24.0-44.0); MONO # 0.5 10^3/uL (0.0-0.8); MONO % 5.8 % (2.0-8.0); NEUTROPHILS # 5.5 10^3/uL (1.5-8.5); NEUTROPHILS % 70.6 % (36.0-66.0); PLATELET COUNT, AUTOMATED 315 10^3/uL (150-450)
[2025-03-02 10:26] LABS: CALCIUM LEVEL 9.4 MG/DL (8.5-10.1); CARBON DIOXIDE LEVEL 25.0 MMOL/L (20-31); CHLORIDE LEVEL 100.0 MMOL/L (98-107); CREATININE FOR GFR 6.82 MG/DL (0.70-1.30); GLOMERULAR FILTRATION RATE 9.0 (>56); MAGNESIUM LEVEL 1.7 MG/DL (1.8-2.4); PHOSPHORUS LEVEL 4.3 MG/DL (2.5-4.9); POTASSIUM SERUM 3.8 MMOL/L (3.5-5.1); SODIUM LEVEL 138.0 MMOL/L (136-145)
[2025-03-02 13:05] VITALS: BP 142/91; TEMP 97.2; O2SAT 97
[2025-03-03 10:44] VITALS: BP 152/84; TEMP 97.5; O2SAT 98
[2025-03-04] MEDS ORDERED: HEPARIN 1,000 UNITS/ML 10 ML VIAL (FOR RADIOLOGY & DIALYSIS ONLY) IV PRN (06:00)
[2025-03-04] MEDS ORDERED: SODIUM CHLORIDE 0.9% 1000 ML IV PRN (06:00)
[2025-03-04] MEDS ORDERED: HEPARIN 1,000 UNITS/ML 10 ML VIAL (FOR RADIOLOGY & DIALYSIS ONLY) XX SCH (06:00)
[2025-03-04 06:08] VITALS: BP 165/104; TEMP 97.3; O2SAT 96
[2025-03-05 04:40] VITALS: BP 160/99; TEMP 97.2; O2SAT 96
[2025-03-05 08:10] VITALS: BP 159/100; TEMP 97.2; O2SAT 98
[2025-03-05 09:00] VITALS: BP 157/103; TEMP 97.7; O2SAT 98
[2025-03-06] MEDS ORDERED: SODIUM CHLORIDE 0.9% 1000 ML IV PRN (06:00)
[2025-03-06] MEDS ORDERED: HEPARIN 1,000 UNITS/ML 10 ML VIAL (FOR RADIOLOGY & DIALYSIS ONLY) IV PRN (06:00)
[2025-03-06 07:01] VITALS: BP 164/101; TEMP 97.5; O2SAT 98
[2025-03-06] MEDS: HEPARIN 1,000 UNITS/ML 10 ML VIAL (FOR RADIOLOGY & DIALYSIS ONLY) XX SCH (12:36)
[2025-03-07 04:57] VITALS: BP 160/102; TEMP 97.2; O2SAT 93
[2025-03-08 04:00] VITALS: BP 138/94; TEMP 97.2; O2SAT 98
[2025-03-09 04:00] VITALS: BP 159/101; TEMP 96.3; O2SAT 98
[2025-03-09 07:43] LABS: PLATELET COUNT, AUTOMATED 300 10^3/uL (150-450)
[2025-03-09 08:12] LABS: CALCIUM LEVEL 9.2 MG/DL (8.5-10.1); CARBON DIOXIDE LEVEL 29.0 MMOL/L (20-31); CHLORIDE LEVEL 101.0 MMOL/L (98-107); CREATININE FOR GFR 7.23 MG/DL (0.70-1.30); GLOMERULAR FILTRATION RATE 8.4 (>56); PHOSPHORUS LEVEL 5.3 MG/DL (2.5-4.9); POTASSIUM SERUM 3.8 MMOL/L (3.5-5.1); SODIUM LEVEL 141.0 MMOL/L (136-145)
[2025-03-09] MEDS ORDERED: SODIUM CHLORIDE 0.9% 1000 ML IV PRN (11:15)
[2025-03-09] MEDS ORDERED: HEPARIN 1,000 UNITS/ML 10 ML VIAL (FOR RADIOLOGY & DIALYSIS ONLY) IV PRN (11:15)
[2025-03-09 11:35] VITALS: BP 156/99
[2025-03-09] MEDS: HEPARIN 1,000 UNITS/ML 10 ML VIAL (FOR RADIOLOGY & DIALYSIS ONLY) XX SCH (14:58)
[2025-03-09 21:30] VITALS: BP 143/91
[2025-03-10 05:52] VITALS: BP 143/89; TEMP 97.6; O2SAT 96
[2025-03-11] MEDS ORDERED: HEPARIN 1,000 UNITS/ML 10 ML VIAL (FOR RADIOLOGY & DIALYSIS ONLY) IV PRN (00:05)
[2025-03-11] MEDS ORDERED: SODIUM CHLORIDE 0.9% 1000 ML IV PRN (00:05)
[2025-03-11 04:57] VITALS: BP 169/98; TEMP 97; O2SAT 96
[2025-03-11 07:40] VITALS: BP 145/60; TEMP 98; O2SAT 97
[2025-03-11] MEDS: HEPARIN 1,000 UNITS/ML 10 ML VIAL (FOR RADIOLOGY & DIALYSIS ONLY) XX SCH (09:43)
[2025-03-12 06:32] VITALS: BP 167/97; TEMP 97.5; O2SAT 96
[2025-03-13] MEDS ORDERED: HEPARIN 1,000 UNITS/ML 10 ML VIAL (FOR RADIOLOGY & DIALYSIS ONLY) IV PRN (06:00)
[2025-03-13] MEDS ORDERED: SODIUM CHLORIDE 0.9% 1000 ML IV PRN (06:00)
[2025-03-13 06:11] VITALS: BP 169/108; TEMP 97.5; O2SAT 96
[2025-03-13] MEDS: HEPARIN 1,000 UNITS/ML 10 ML VIAL (FOR RADIOLOGY & DIALYSIS ONLY) XX SCH (13:12)
[2025-03-14 06:34] VITALS: BP 143/89; TEMP 96.8; O2SAT 99
[2025-03-15 06:18] VITALS: BP 142/99; O2SAT 99
[2025-03-16 06:00] VITALS: BP 163/94; TEMP 96.3; O2SAT 99
[2025-03-16] MEDS ORDERED: HEPARIN 1,000 UNITS/ML 10 ML VIAL (FOR RADIOLOGY & DIALYSIS ONLY) IV PRN (06:00)
[2025-03-16] MEDS ORDERED: SODIUM CHLORIDE 0.9% 1000 ML IV PRN (06:00)
[2025-03-16 09:16] LABS: BASO # 0.0 10^3/uL (0.0-0.2); BASO % 0.5 % (0.0-1.0); EOS # 0.3 10^3/uL (0.0-0.5); EOS % 4.6 % (0.0-3.0); LYMPH # 1.4 10^3/uL (1.5-5.0); LYMPH % 18.3 % (24.0-44.0); MONO # 0.5 10^3/uL (0.0-0.8); MONO % 6.1 % (2.0-8.0); NEUTROPHILS # 5.2 10^3/uL (1.5-8.5); NEUTROPHILS % 70.2 % (36.0-66.0); PLATELET COUNT, AUTOMATED 290 10^3/uL (150-450)
[2025-03-16] MEDS: HEPARIN 1,000 UNITS/ML 10 ML VIAL (FOR RADIOLOGY & DIALYSIS ONLY) XX SCH (09:24)
[2025-03-16 10:08] LABS: CALCIUM LEVEL 9.4 MG/DL (8.5-10.1); CARBON DIOXIDE LEVEL 24 MMOL/L (20-31); CHLORIDE LEVEL 102 MMOL/L (98-107); CREATININE FOR GFR 6.45 MG/DL (0.70-1.30); GLOMERULAR FILTRATION RATE 9.7 (>56); MAGNESIUM LEVEL 1.9 MG/DL (1.8-2.4); PHOSPHORUS LEVEL 5.0 MG/DL (2.5-4.9); POTASSIUM SERUM 3.9 MMOL/L (3.5-5.1); SODIUM LEVEL 138 MMOL/L (136-145)
[2025-03-16 10:10] LABS: HEPATITIS B SURFACE ANTIBODY NEGATIVE (POSITIVE)
[2025-03-16 10:43] LABS: HEPATITIS C VIRUS ABY INDEX < 0.02 INDEX (<0.8)
[2025-03-17 06:48] VITALS: BP 170/105; TEMP 97.3; O2SAT 96
[2025-03-17 08:27] VITALS: BP 162/97
[2025-03-18] MEDS ORDERED: HEPARIN 1,000 UNITS/ML 10 ML VIAL (FOR RADIOLOGY & DIALYSIS ONLY) IV PRN (06:00)
[2025-03-18] MEDS ORDERED: SODIUM CHLORIDE 0.9% 1000 ML IV PRN (06:00)
[2025-03-18 06:38] VITALS: BP 157/98; TEMP 97; O2SAT 100
[2025-03-18] MEDS: HEPARIN 1,000 UNITS/ML 10 ML VIAL (FOR RADIOLOGY & DIALYSIS ONLY) XX SCH (12:25)
[2025-03-18 20:35] VITALS: BP 119/65
[2025-03-19 06:41] LABS: PLATELET COUNT, AUTOMATED 219 10^3/uL (150-450)
[2025-03-19 06:48] VITALS: BP 142/97; TEMP 97.2; O2SAT 96
[2025-03-19 07:12] LABS: CALCIUM LEVEL 8.5 MG/DL (8.5-10.1); CARBON DIOXIDE LEVEL 30.0 MMOL/L (20-31); CHLORIDE LEVEL 100.0 MMOL/L (98-107); CHOLESTEROL LEVEL 77.0 MG/DL (<200); CHOLESTEROL RISK RATIO 2.2 (<5); CREATININE FOR GFR 4.34 MG/DL (0.70-1.30); GLOMERULAR FILTRATION RATE 15.6 (>56); LDL CHOLESTEROL 26.6 MG/DL (<100); NON-HDL-C 42.0 MG/DL; POTASSIUM SERUM 3.7 MMOL/L (3.5-5.1); SODIUM LEVEL 142.0 MMOL/L (136-145); TRIGLYCERIDES LEVEL 77.0 MG/DL (<150)
[2025-03-20] MEDS ORDERED: HEPARIN 1,000 UNITS/ML 10 ML VIAL (FOR RADIOLOGY & DIALYSIS ONLY) IV PRN (06:00)
[2025-03-20] MEDS ORDERED: SODIUM CHLORIDE 0.9% 1000 ML IV PRN (06:00)
[2025-03-20 06:47] VITALS: BP 152/96; TEMP 97.4; O2SAT 95
[2025-03-20] MEDS: HEPARIN 1,000 UNITS/ML 10 ML VIAL (FOR RADIOLOGY & DIALYSIS ONLY) XX SCH (09:52)
[2025-03-20 13:11] VITALS: BP 113/71
[2025-03-21 06:00] VITALS: BP 147/72; TEMP 96.6; O2SAT 94
[2025-03-21 08:37] VITALS: BP 141/79
[2025-03-22 06:09] VITALS: BP 155/91; TEMP 97.5; O2SAT 99
[2025-03-22 08:14] VITALS: BP 136/87
[2025-03-23 06:00] VITALS: BP 163/92; TEMP 96.1; O2SAT 94
[2025-03-23] MEDS ORDERED: HEPARIN 1,000 UNITS/ML 10 ML VIAL (FOR RADIOLOGY & DIALYSIS ONLY) IV PRN (06:00)
[2025-03-23] MEDS ORDERED: SODIUM CHLORIDE 0.9% 1000 ML IV PRN (06:00)
[2025-03-23] MEDS: HEPARIN 1,000 UNITS/ML 10 ML VIAL (FOR RADIOLOGY & DIALYSIS ONLY) XX SCH (14:58)
[2025-03-23 19:49] VITALS: BP 117/88
[2025-03-24 06:52] VITALS: BP 163/96; TEMP 97; O2SAT 97
[2025-03-25] MEDS ORDERED: HEPARIN 1,000 UNITS/ML 10 ML VIAL (FOR RADIOLOGY & DIALYSIS ONLY) IV PRN (06:00)
[2025-03-25] MEDS ORDERED: SODIUM CHLORIDE 0.9% 1000 ML IV PRN (06:00)
[2025-03-25 06:57] VITALS: BP 161/9; TEMP 98.1; O2SAT 96
[2025-03-25] MEDS: HEPARIN 1,000 UNITS/ML 10 ML VIAL (FOR RADIOLOGY & DIALYSIS ONLY) XX SCH (09:48)
[2025-03-26 06:14] VITALS: BP 160/90; TEMP 98; O2SAT 98
[2025-03-26] MEDS: IPRATROPIUM 0.5 MG/ALBUTEROL 2.5 MG INH SOL UD 3 ML NEB PRN (07:08)
[2025-03-27] MEDS ORDERED: HEPARIN 1,000 UNITS/ML 10 ML VIAL (FOR RADIOLOGY & DIALYSIS ONLY) IV PRN (06:00)
[2025-03-27] MEDS ORDERED: SODIUM CHLORIDE 0.9% 1000 ML IV PRN (06:00)
[2025-03-27 07:03] VITALS: BP 165/102; TEMP 97.2; O2SAT 100
[2025-03-27] MEDS: HEPARIN 1,000 UNITS/ML 10 ML VIAL (FOR RADIOLOGY & DIALYSIS ONLY) XX SCH (14:04)
[2025-03-28 07:38] VITALS: BP 163/93; TEMP 97.2; O2SAT 100
[2025-03-29 06:00] VITALS: TEMP 96.8; O2SAT 99
[2025-03-30 06:00] VITALS: BP 165/111; TEMP 97; O2SAT 92
[2025-03-30] MEDS ORDERED: HEPARIN 1,000 UNITS/ML 10 ML VIAL (FOR RADIOLOGY & DIALYSIS ONLY) IV PRN (06:00)
[2025-03-30] MEDS ORDERED: SODIUM CHLORIDE 0.9% 1000 ML IV PRN (06:00)
[2025-03-30 07:56] VITALS: BP 162/91
[2025-03-30] MEDS: HEPARIN 1,000 UNITS/ML 10 ML VIAL (FOR RADIOLOGY & DIALYSIS ONLY) XX SCH (10:14)
[2025-03-31 05:34] VITALS: BP 170/94; TEMP 97.3; O2SAT 93
[2025-04-01 05:56] VITALS: BP 169/94; TEMP 97.5; O2SAT 98
[2025-04-01] MEDS ORDERED: SODIUM CHLORIDE 0.9% 1000 ML IV PRN (06:00)
[2025-04-01] MEDS ORDERED: HEPARIN 1,000 UNITS/ML 10 ML VIAL (FOR RADIOLOGY & DIALYSIS ONLY) IV PRN (06:00)
[2025-04-01 07:36] LABS: BASO # 0.1 10^3/uL (0.0-0.2); BASO % 0.6 % (0.0-1.0); EOS # 0.3 10^3/uL (0.0-0.5); EOS % 3.3 % (0.0-3.0); LYMPH # 1.9 10^3/uL (1.5-5.0); LYMPH % 23.4 % (24.0-44.0); MONO # 0.5 10^3/uL (0.0-0.8); MONO % 6.3 % (2.0-8.0); NEUTROPHILS # 5.3 10^3/uL (1.5-8.5); NEUTROPHILS % 66.0 % (36.0-66.0); PLATELET COUNT, AUTOMATED 247 10^3/uL (150-450)
[2025-04-01 08:08] LABS: CALCIUM LEVEL 9.1 MG/DL (8.5-10.1); CARBON DIOXIDE LEVEL 29.0 MMOL/L (20-31); CHLORIDE LEVEL 101.0 MMOL/L (98-107); CREATININE FOR GFR 4.89 MG/DL (0.70-1.30); GLOMERULAR FILTRATION RATE 13.5 (>56); MAGNESIUM LEVEL 1.7 MG/DL (1.8-2.4); PHOSPHORUS LEVEL 4.0 MG/DL (2.5-4.9); POTASSIUM SERUM 4.1 MMOL/L (3.5-5.1); SODIUM LEVEL 139.0 MMOL/L (136-145)
[2025-04-01] MEDS: HEPARIN 1,000 UNITS/ML 10 ML VIAL (FOR RADIOLOGY & DIALYSIS ONLY) XX SCH (10:23)
[2025-04-01] MEDS: MAGNESIUM OXIDE 400 MG TAB PO SCH (20:57)
[2025-04-02 05:28] VITALS: BP 167/94; TEMP 97; O2SAT 96
[2025-04-03] MEDS ORDERED: SODIUM CHLORIDE 0.9% 1000 ML IV PRN (06:00)
[2025-04-03] MEDS ORDERED: HEPARIN 1,000 UNITS/ML 10 ML VIAL (FOR RADIOLOGY & DIALYSIS ONLY) IV PRN (06:00)
[2025-04-03 06:52] VITALS: BP 168/96; TEMP 96.9; O2SAT 96
[2025-04-03] MEDS: HEPARIN 1,000 UNITS/ML 10 ML VIAL (FOR RADIOLOGY & DIALYSIS ONLY) XX SCH (13:16)
[2025-04-03 17:18] VITALS: BP 103/63
[2025-04-04 06:10] VITALS: BP 167/92; TEMP 97.2; O2SAT 99
[2025-04-05 08:19] VITALS: BP 161/100
[2025-04-05 10:33] VITALS: BP 147/93; TEMP 97.7; O2SAT 98
[2025-04-06] MEDS ORDERED: SODIUM CHLORIDE 0.9% 1000 ML IV PRN (06:00)
[2025-04-06] MEDS ORDERED: HEPARIN 1,000 UNITS/ML 10 ML VIAL (FOR RADIOLOGY & DIALYSIS ONLY) IV PRN (06:00)
[2025-04-06 06:18] VITALS: BP 134/95; TEMP 97.3; O2SAT 100
[2025-04-06 07:23] VITALS: O2SAT 99
[2025-04-06] MEDS: HEPARIN 1,000 UNITS/ML 10 ML VIAL (FOR RADIOLOGY & DIALYSIS ONLY) XX SCH (13:40)
[2025-04-06] MEDS: PERCOCET 5MG/325MG TAB PO ONE (14:12)
[2025-04-07 06:44] VITALS: BP 135/91; TEMP 97.5; O2SAT 96
[2025-04-08] MEDS ORDERED: HEPARIN 1,000 UNITS/ML 10 ML VIAL (FOR RADIOLOGY & DIALYSIS ONLY) IV PRN (06:00)
[2025-04-08] MEDS ORDERED: SODIUM CHLORIDE 0.9% 1000 ML IV PRN (06:00)
[2025-04-08 06:40] VITALS: BP 171/100; TEMP 97.5; O2SAT 97
[2025-04-08] MEDS: HEPARIN 1,000 UNITS/ML 10 ML VIAL (FOR RADIOLOGY & DIALYSIS ONLY) XX SCH (09:04)
[2025-04-08] MEDS: PERCOCET 5MG/325MG TAB PO ONE (12:40)
[2025-04-09 06:57] VITALS: BP 168/98; TEMP 97.4; O2SAT 96
[2025-04-09 08:25] VITALS: BP 130/76
[2025-04-10] MEDS ORDERED: SODIUM CHLORIDE 0.9% 1000 ML IV PRN (06:20)
[2025-04-10] MEDS ORDERED: HEPARIN 1,000 UNITS/ML 10 ML VIAL (FOR RADIOLOGY & DIALYSIS ONLY) XX SCH (06:20)
[2025-04-10 06:52] VITALS: BP 158/88; TEMP 97.7; O2SAT 98
[2025-04-10] MEDS: HEPARIN 1,000 UNITS/ML 10 ML VIAL (FOR RADIOLOGY & DIALYSIS ONLY) IV PRN (09:22)
[2025-04-11 06:24] VITALS: BP 152/82; TEMP 97.5; O2SAT 97
[2025-04-13] MEDS ORDERED: SODIUM CHLORIDE 0.9% 1000 ML IV PRN (06:00)
[2025-04-13] MEDS ORDERED: HEPARIN 1,000 UNITS/ML 10 ML VIAL (FOR RADIOLOGY & DIALYSIS ONLY) XX SCH (06:00)
[2025-04-13] MEDS ORDERED: HEPARIN 1,000 UNITS/ML 10 ML VIAL (FOR RADIOLOGY & DIALYSIS ONLY) IV PRN (06:00)
[2025-04-13 06:27] VITALS: BP 173/101; TEMP 97.2; O2SAT 97
[2025-04-13 06:51] VITALS: BP 174/101
[2025-04-13 07:27] LABS: BASO # 0.0 10^3/uL (0.0-0.2); BASO % 0.5 % (0.0-1.0); EOS # 0.3 10^3/uL (0.0-0.5); EOS % 3.0 % (0.0-3.0); LYMPH # 2.0 10^3/uL (1.5-5.0); LYMPH % 22.9 % (24.0-44.0); MONO # 0.5 10^3/uL (0.0-0.8); MONO % 6.2 % (2.0-8.0); NEUTROPHILS # 5.8 10^3/uL (1.5-8.5); NEUTROPHILS % 67.2 % (36.0-66.0); PLATELET COUNT, AUTOMATED 251 10^3/uL (150-450)
[2025-04-13 07:55] LABS: CALCIUM LEVEL 9.6 MG/DL (8.5-10.1); CARBON DIOXIDE LEVEL 26 MMOL/L (20-31); CHLORIDE LEVEL 105 MMOL/L (98-107); CREATININE FOR GFR 5.71 MG/DL (0.70-1.30); GLOMERULAR FILTRATION RATE 11.2 (>56); MAGNESIUM LEVEL 2.8 MG/DL (1.8-2.4); PHOSPHORUS LEVEL 4.3 MG/DL (2.5-4.9); POTASSIUM SERUM 5.3 MMOL/L (3.5-5.1); SODIUM LEVEL 139 MMOL/L (136-145)
[2025-04-13 08:03] LABS: HEPATITIS B SURFACE ANTIBODY NEGATIVE (POSITIVE)
[2025-04-13 08:36] LABS: HEPATITIS C VIRUS ABY INDEX < 0.02 INDEX (<0.8)
[2025-04-14] MEDS ORDERED: SODIUM CHLORIDE 0.9% 1000 ML IV PRN (06:00)
[2025-04-14] MEDS ORDERED: HEPARIN 1,000 UNITS/ML 10 ML VIAL (FOR RADIOLOGY & DIALYSIS ONLY) IV PRN (06:00)
[2025-04-14 06:22] VITALS: BP 172/100; TEMP 97; O2SAT 98
[2025-04-14] MEDS: HEPARIN 1,000 UNITS/ML 10 ML VIAL (FOR RADIOLOGY & DIALYSIS ONLY) XX SCH (10:16)
[2025-04-15 05:12] VITALS: BP 134/88; TEMP 97.3; O2SAT 96
[2025-04-15 09:00] VITALS: BP 134/79; TEMP 97.2; O2SAT 96
[2025-04-16 05:39] VITALS: BP 170/96; TEMP 97.6; O2SAT 93
[2025-04-16] MEDS ORDERED: SODIUM CHLORIDE 0.9% 1000 ML IV PRN (06:00)
[2025-04-16] MEDS ORDERED: HEPARIN 1,000 UNITS/ML 10 ML VIAL (FOR RADIOLOGY & DIALYSIS ONLY) IV PRN (06:00)
[2025-04-16 07:15] LABS: PLATELET COUNT, AUTOMATED 232 10^3/uL (150-450)
[2025-04-16 07:43] LABS: CALCIUM LEVEL 9.2 MG/DL (8.5-10.1); CARBON DIOXIDE LEVEL 31.0 MMOL/L (20-31); CHLORIDE LEVEL 101.0 MMOL/L (98-107); CREATININE FOR GFR 5.22 MG/DL (0.70-1.30); GLOMERULAR FILTRATION RATE 12.5 (>56); MAGNESIUM LEVEL 2.5 MG/DL (1.8-2.4); POTASSIUM SERUM 4.5 MMOL/L (3.5-5.1); SODIUM LEVEL 140.0 MMOL/L (136-145)
[2025-04-16] MEDS: HEPARIN 1,000 UNITS/ML 10 ML VIAL (FOR RADIOLOGY & DIALYSIS ONLY) XX SCH (09:07)
[2025-04-16] MEDS: PERCOCET 5MG/325MG TAB PO SCH (09:55)
[2025-04-17 05:26] VITALS: BP 155/84; TEMP 97; O2SAT 96
[2025-04-18 06:00] VITALS: BP 160/84; TEMP 97.3; O2SAT 100
[2025-04-18] MEDS ORDERED: SODIUM CHLORIDE 0.9% 1000 ML IV PRN (06:00)
[2025-04-18] MEDS ORDERED: HEPARIN 1,000 UNITS/ML 10 ML VIAL (FOR RADIOLOGY & DIALYSIS ONLY) IV PRN (06:00)
[2025-04-18] MEDS: HEPARIN 1,000 UNITS/ML 10 ML VIAL (FOR RADIOLOGY & DIALYSIS ONLY) XX SCH (09:23)
[2025-04-18] MEDS: TRIMETHOPRIM/SULFAMETH 80/400 MG TAB PO SCH (18:08)
[2025-04-19 06:52] VITALS: BP 158/86; TEMP 96.8; O2SAT 98
[2025-04-20 06:44] VITALS: BP 171/108; TEMP 96.8; O2SAT 95
[2025-04-20 09:00] VITALS: BP 162/89; O2SAT 95
[2025-04-21 05:20] VITALS: BP 147/92; TEMP 97; O2SAT 94
[2025-04-21] MEDS ORDERED: HEPARIN 1,000 UNITS/ML 10 ML VIAL (FOR RADIOLOGY & DIALYSIS ONLY) IV PRN (06:00)
[2025-04-21] MEDS ORDERED: SODIUM CHLORIDE 0.9% 1000 ML IV PRN (06:00)
[2025-04-21] MEDS: HEPARIN 1,000 UNITS/ML 10 ML VIAL (FOR RADIOLOGY & DIALYSIS ONLY) XX SCH (09:28)
[2025-04-21] MEDS: DARBEPOETIN 100 MCG/0.5 ML *DIALYSIS* SYRINGE IV SCH (10:25)
[2025-04-22 05:52] VITALS: BP 114/86; TEMP 97.2; O2SAT 96
[2025-04-22 08:48] VITALS: BP 140/83
[2025-04-23] MEDS ORDERED: SODIUM CHLORIDE 0.9% 1000 ML IV PRN (06:00)
[2025-04-23] MEDS ORDERED: HEPARIN 1,000 UNITS/ML 10 ML VIAL (FOR RADIOLOGY & DIALYSIS ONLY) XX SCH (06:00)
[2025-04-23 06:52] VITALS: BP 168/89; TEMP 97; O2SAT 96
[2025-04-23] MEDS: HEPARIN 1,000 UNITS/ML 10 ML VIAL (FOR RADIOLOGY & DIALYSIS ONLY) IV PRN (13:44)
[2025-04-23 18:20] LABS: PLATELET COUNT, AUTOMATED 256 10^3/uL (150-450)
[2025-04-23 18:46] LABS: CALCIUM LEVEL 8.7 MG/DL (8.5-10.1); CARBON DIOXIDE LEVEL 27.0 MMOL/L (20-31); CHLORIDE LEVEL 106.0 MMOL/L (98-107); CREATININE FOR GFR 3.03 MG/DL (0.70-1.30); GLOMERULAR FILTRATION RATE 23.9 (>56); PHOSPHORUS LEVEL 2.5 MG/DL (2.5-4.9); POTASSIUM SERUM 4.2 MMOL/L (3.5-5.1); SODIUM LEVEL 142.0 MMOL/L (136-145)
[2025-04-24 05:24] VITALS: BP 168/89; TEMP 96.8; O2SAT 96
[2025-04-25] MEDS ORDERED: HEPARIN 1,000 UNITS/ML 10 ML VIAL (FOR RADIOLOGY & DIALYSIS ONLY) XX SCH (06:00)
[2025-04-25] MEDS ORDERED: SODIUM CHLORIDE 0.9% 1000 ML IV PRN (06:00)
[2025-04-25 06:37] VITALS: BP 166/90; TEMP 97; O2SAT 96
[2025-04-25] MEDS: HEPARIN 1,000 UNITS/ML 10 ML VIAL (FOR RADIOLOGY & DIALYSIS ONLY) IV PRN (09:47)
[2025-04-26 06:21] VITALS: BP 169/100; TEMP 97; O2SAT 98
[2025-04-27 07:25] VITALS: BP 165/104; TEMP 97.7; O2SAT 96
[2025-04-28] MEDS ORDERED: SODIUM CHLORIDE 0.9% 1000 ML IV PRN (06:00)
[2025-04-28] MEDS ORDERED: HEPARIN 1,000 UNITS/ML 10 ML VIAL (FOR RADIOLOGY & DIALYSIS ONLY) IV PRN (06:00)
[2025-04-28 06:12] VITALS: BP 185/103; TEMP 97.3; O2SAT 99
[2025-04-28] MEDS: HEPARIN 1,000 UNITS/ML 10 ML VIAL (FOR RADIOLOGY & DIALYSIS ONLY) XX SCH (11:45)
[2025-04-29 06:25] VITALS: BP 171/106; TEMP 97.7; O2SAT 97
[2025-04-30 05:04] VITALS: BP 160/98; TEMP 97.7; O2SAT 95
[2025-04-30] MEDS ORDERED: SODIUM CHLORIDE 0.9% 1000 ML IV PRN (06:00)
[2025-04-30] MEDS ORDERED: HEPARIN 1,000 UNITS/ML 10 ML VIAL (FOR RADIOLOGY & DIALYSIS ONLY) IV PRN (06:00)
[2025-04-30] MEDS: HEPARIN 1,000 UNITS/ML 10 ML VIAL (FOR RADIOLOGY & DIALYSIS ONLY) XX SCH (09:30)
[2025-05-01 05:21] VITALS: BP 164/97; TEMP 97.2; O2SAT 96
[2025-05-02] MEDS ORDERED: HEPARIN 1,000 UNITS/ML 10 ML VIAL (FOR RADIOLOGY & DIALYSIS ONLY) IV PRN (06:00)
[2025-05-02] MEDS ORDERED: SODIUM CHLORIDE 0.9% 1000 ML IV PRN (06:00)
[2025-05-02 06:15] VITALS: BP 163/96; TEMP 97.2; O2SAT 98
[2025-05-02] MEDS: HEPARIN 1,000 UNITS/ML 10 ML VIAL (FOR RADIOLOGY & DIALYSIS ONLY) XX SCH (09:51)
[2025-05-02] MEDS: APIXABAN 5 MG TAB PO SCH (20:31)
[2025-05-03 06:38] VITALS: BP 166/100; TEMP 97.5; O2SAT 97
[2025-05-04 04:53] VITALS: BP 163/95; TEMP 97; O2SAT 94
[2025-05-04 07:27] LABS: PLATELET COUNT, AUTOMATED 224 10^3/uL (150-450)
[2025-05-04 07:56] LABS: CALCIUM LEVEL 8.7 MG/DL (8.5-10.1); CARBON DIOXIDE LEVEL 27.0 MMOL/L (20-31); CHLORIDE LEVEL 106.0 MMOL/L (98-107); CREATININE FOR GFR 4.94 MG/DL (0.70-1.30); GLOMERULAR FILTRATION RATE 13.3 (>56); PHOSPHORUS LEVEL 4.3 MG/DL (2.5-4.9); POTASSIUM SERUM 4.7 MMOL/L (3.5-5.1); SODIUM LEVEL 141.0 MMOL/L (136-145)
[2025-05-04 08:07] VITALS: BP 179/91
[2025-05-05 05:22] VITALS: BP 147/89; TEMP 97; O2SAT 96
[2025-05-05] MEDS ORDERED: SODIUM CHLORIDE 0.9% 1000 ML IV PRN (06:00)
[2025-05-05] MEDS ORDERED: HEPARIN 1,000 UNITS/ML 10 ML VIAL (FOR RADIOLOGY & DIALYSIS ONLY) IV PRN (06:00)
[2025-05-05] MEDS: HEPARIN 1,000 UNITS/ML 10 ML VIAL (FOR RADIOLOGY & DIALYSIS ONLY) XX SCH (10:16)
[2025-05-06 05:22] VITALS: BP 173/72; TEMP 97.3; O2SAT 96
[2025-05-07 05:36] VITALS: BP 170/77; TEMP 97; O2SAT 95
[2025-05-07] MEDS ORDERED: HEPARIN 1,000 UNITS/ML 10 ML VIAL (FOR RADIOLOGY & DIALYSIS ONLY) IV PRN (06:00)
[2025-05-07] MEDS ORDERED: SODIUM CHLORIDE 0.9% 1000 ML IV PRN (06:00)
[2025-05-07] MEDS: HEPARIN 1,000 UNITS/ML 10 ML VIAL (FOR RADIOLOGY & DIALYSIS ONLY) XX SCH (09:42)
[2025-05-08 05:29] VITALS: BP 151/82; TEMP 97.3; O2SAT 96
[2025-05-09] MEDS ORDERED: HEPARIN 1,000 UNITS/ML 10 ML VIAL (FOR RADIOLOGY & DIALYSIS ONLY) XX SCH (06:00)
[2025-05-09] MEDS ORDERED: SODIUM CHLORIDE 0.9% 1000 ML IV PRN (06:00)
[2025-05-09] MEDS ORDERED: HEPARIN 1,000 UNITS/ML 10 ML VIAL (FOR RADIOLOGY & DIALYSIS ONLY) IV PRN (06:00)
[2025-05-10 06:46] VITALS: BP 142/94; TEMP 97.5; O2SAT 96
[2025-05-10 08:19] VITALS: BP 137/91; TEMP 97.6; O2SAT 95
[2025-05-11 06:27] VITALS: BP 141/91; TEMP 97.7; O2SAT 94
[2025-05-12 04:00] VITALS: BP 164/93; TEMP 97.7; O2SAT 95
[2025-05-12] MEDS ORDERED: HEPARIN 1,000 UNITS/ML 10 ML VIAL (FOR RADIOLOGY & DIALYSIS ONLY) IV PRN (06:00)
[2025-05-12] MEDS ORDERED: SODIUM CHLORIDE 0.9% 1000 ML IV PRN (06:00)
[2025-05-12] MEDS: HEPARIN 1,000 UNITS/ML 10 ML VIAL (FOR RADIOLOGY & DIALYSIS ONLY) XX SCH (09:01)
[2025-05-12 09:15] LABS: PLATELET COUNT, AUTOMATED 230 10^3/uL (150-450)
[2025-05-12 10:11] LABS: CALCIUM LEVEL 9.0 MG/DL (8.5-10.1); CARBON DIOXIDE LEVEL 24 MMOL/L (20-31); CHLORIDE LEVEL 102 MMOL/L (98-107); CREATININE FOR GFR 5.75 MG/DL (0.70-1.30); GLOMERULAR FILTRATION RATE 11.1 (>56); MAGNESIUM LEVEL 1.6 MG/DL (1.8-2.4); PHOSPHORUS LEVEL 3.6 MG/DL (2.5-4.9); POTASSIUM SERUM 4.5 MMOL/L (3.5-5.1); SODIUM LEVEL 138 MMOL/L (136-145)
[2025-05-12 10:18] LABS: HEPATITIS B SURFACE ANTIBODY NEGATIVE (POSITIVE)
[2025-05-12 20:00] VITALS: BP 144/87; TEMP 98.2; O2SAT 95
[2025-05-13 06:00] VITALS: BP 172/99; TEMP 98.5; O2SAT 97
[2025-05-14] MEDS ORDERED: HEPARIN 1,000 UNITS/ML 10 ML VIAL (FOR RADIOLOGY & DIALYSIS ONLY) IV PRN (06:00)
[2025-05-14] MEDS ORDERED: SODIUM CHLORIDE 0.9% 1000 ML IV PRN (06:00)
[2025-05-14 06:37] VITALS: BP 169/104; TEMP 97.5; O2SAT 98
[2025-05-14] MEDS: HEPARIN 1,000 UNITS/ML 10 ML VIAL (FOR RADIOLOGY & DIALYSIS ONLY) XX SCH (09:29)
[2025-05-14 13:45] VITALS: BP 138/74
[2025-05-15 06:07] VITALS: BP 151/90; TEMP 97.7; O2SAT 99
[2025-05-16] MEDS ORDERED: HEPARIN 1,000 UNITS/ML 10 ML VIAL (FOR RADIOLOGY & DIALYSIS ONLY) IV PRN (06:00)
[2025-05-16] MEDS ORDERED: SODIUM CHLORIDE 0.9% 1000 ML IV PRN (06:00)
[2025-05-16 06:17] VITALS: BP 156/94; TEMP 97.2; O2SAT 98
[2025-05-16] MEDS: HEPARIN 1,000 UNITS/ML 10 ML VIAL (FOR RADIOLOGY & DIALYSIS ONLY) XX SCH (08:45)
[2025-05-17 06:24] VITALS: BP 162/97; TEMP 96.8; O2SAT 99
[2025-05-18 06:42] VITALS: BP 165/97; TEMP 98; O2SAT 96
[2025-05-19] MEDS ORDERED: SODIUM CHLORIDE 0.9% 1000 ML IV PRN (06:40)
[2025-05-19] MEDS ORDERED: HEPARIN 1,000 UNITS/ML 10 ML VIAL (FOR RADIOLOGY & DIALYSIS ONLY) IV PRN (06:40)
[2025-05-19 06:55] VITALS: BP 167/97; TEMP 97.3; O2SAT 96
[2025-05-19] MEDS: HEPARIN 1,000 UNITS/ML 10 ML VIAL (FOR RADIOLOGY & DIALYSIS ONLY) XX SCH (13:50)
[2025-05-19] MEDS: DARBEPOETIN 100 MCG/0.5 ML *DIALYSIS* SYRINGE IV SCH (13:52)
[2025-05-20 06:53] VITALS: BP 164/93; TEMP 97.5; O2SAT 95
[2025-05-21] MEDS ORDERED: SODIUM CHLORIDE 0.9% 1000 ML IV PRN (06:00)
[2025-05-21] MEDS ORDERED: HEPARIN 1,000 UNITS/ML 10 ML VIAL (FOR RADIOLOGY & DIALYSIS ONLY) XX SCH (06:00)
[2025-05-21 07:05] VITALS: BP 163/92; TEMP 97.2; O2SAT 94
[2025-05-21] MEDS: HEPARIN 1,000 UNITS/ML 10 ML VIAL (FOR RADIOLOGY & DIALYSIS ONLY) IV PRN (09:38)
[2025-05-22 05:13] VITALS: BP 154/82; TEMP 97.4; O2SAT 94
[2025-05-22 08:16] VITALS: BP 148/81
[2025-05-23] MEDS ORDERED: SODIUM CHLORIDE 0.9% 1000 ML IV PRN (06:00)
[2025-05-23] MEDS ORDERED: HEPARIN 1,000 UNITS/ML 10 ML VIAL (FOR RADIOLOGY & DIALYSIS ONLY) IV PRN (06:00)
[2025-05-23 06:34] VITALS: BP 144/81; TEMP 97.5; O2SAT 95
[2025-05-23] MEDS: HEPARIN 1,000 UNITS/ML 10 ML VIAL (FOR RADIOLOGY & DIALYSIS ONLY) XX SCH (08:59)
[2025-05-24 05:47] VITALS: BP 141/80; TEMP 97.5; O2SAT 96
[2025-05-25 06:50] VITALS: BP 162/89; TEMP 97.5; O2SAT 95
[2025-05-26 05:07] VITALS: BP 161/91; TEMP 97.5; O2SAT 96
[2025-05-26] MEDS ORDERED: HEPARIN 1,000 UNITS/ML 10 ML VIAL (FOR RADIOLOGY & DIALYSIS ONLY) IV PRN (06:00)
[2025-05-26] MEDS ORDERED: SODIUM CHLORIDE 0.9% 1000 ML IV PRN (06:00)
[2025-05-26 08:54] LABS: PLATELET COUNT, AUTOMATED 303 10^3/uL (150-450)
[2025-05-26] MEDS: HEPARIN 1,000 UNITS/ML 10 ML VIAL (FOR RADIOLOGY & DIALYSIS ONLY) XX SCH (09:04)
[2025-05-26 09:21] LABS: CALCIUM LEVEL 8.9 MG/DL (8.5-10.1); CARBON DIOXIDE LEVEL 24.0 MMOL/L (20-31); CHLORIDE LEVEL 103.0 MMOL/L (98-107); CREATININE FOR GFR 6.01 MG/DL (0.70-1.30); GLOMERULAR FILTRATION RATE 10.5 (>56); IRON (FE) 82.0 UG/DL (65-175); MAGNESIUM LEVEL 1.7 MG/DL (1.8-2.4); PERCENT SATURATION 15.1 % (19.7-50.0); PHOSPHORUS LEVEL 3.9 MG/DL (2.5-4.9); POTASSIUM SERUM 4.9 MMOL/L (3.5-5.1); SODIUM LEVEL 138.0 MMOL/L (136-145)
[2025-05-26] MEDS: IRON SUCROSE 100 MG/5 ML VIAL IV SCH (10:36)
[2025-05-27 06:59] VITALS: BP 151/89; TEMP 97.4; O2SAT 96
[2025-05-28] MEDS ORDERED: HEPARIN 1,000 UNITS/ML 10 ML VIAL (FOR RADIOLOGY & DIALYSIS ONLY) IV PRN (06:00)
[2025-05-28] MEDS ORDERED: SODIUM CHLORIDE 0.9% 1000 ML IV PRN (06:00)
[2025-05-28 06:48] VITALS: BP 141/85; TEMP 97.2; O2SAT 96
[2025-05-28] MEDS: HEPARIN 1,000 UNITS/ML 10 ML VIAL (FOR RADIOLOGY & DIALYSIS ONLY) XX SCH (08:50)
[2025-05-28] MEDS ORDERED: MIRA33506 PO (10:10)
[2025-05-28] MEDS ORDERED: FLUTISP NARES (10:10)
[2025-05-28] MEDS ORDERED: RENV2TAB PO (10:10)
[2025-05-28] MEDS ORDERED: SYMB16INH INH (10:10)
[2025-05-28] MEDS ORDERED: LEVO100T5 PO (10:10)
[2025-05-28] MEDS ORDERED: PANT40TA29 PO (10:10)
[2025-05-28] MEDS ORDERED: AMIO200T54 PO (10:10)
[2025-05-28] MEDS ORDERED: ACET32TAB PO (10:10)
[2025-05-28] MEDS ORDERED: ATOR40TA75 PO (10:10)
[2025-05-28] MEDS ORDERED: DOCU8.6T PO (10:10)
[2025-05-28] MEDS ORDERED: PERCOCET PO (10:10)
== END 2025-05-28 15:45 | disposition home or self-care (01) | DRG 469 ==
LOC: M PCU 01-30 02:06 → M MS5PR 02-06 13:48
PROVIDERS: ADMIT Student in an Organized Health Care Education/Training Program; ATTEND Internal Medicine
PROC: 5A1D70Z Performance of Urinary Filtration, Intermittent, Less than 6 Hours Per Day (ICD-10-PCS; principal; 2025-01-31)
PROC: 0HDRXZZ Extraction of Toe Nail, External Approach (ICD-10-PCS; 2025-02-02)
PROC: B246ZZZ Ultrasonography of Right and Left Heart (ICD-10-PCS; 2025-03-19)
DX: N17.9 Acute kidney failure, unspecified (principal); I50.33 Acute on chronic diastolic (congestive) heart failure; J96.11 Chronic respiratory failure with hypoxia; E46 Unspecified protein-calorie malnutrition; J96.12 Chronic respiratory failure with hypercapnia; I24.89 Other forms of acute ischemic heart disease; D69.6 Thrombocytopenia, unspecified; E66.2 Morbid (severe) obesity with alveolar hypoventilation; I48.0 Paroxysmal atrial fibrillation; I13.2 Hypertensive heart and chronic kidney disease with heart failure and with stage 5 chronic kidney disease, or end stage renal disease; E87.70 Fluid overload, unspecified; Z68.45 Body mass index [BMI] 70 or greater, adult; E83.42 Hypomagnesemia; J44.9 Chronic obstructive pulmonary disease, unspecified; D63.1 Anemia in chronic kidney disease; E78.5 Hyperlipidemia, unspecified; I87.2 Venous insufficiency (chronic) (peripheral); K21.9 Gastro-esophageal reflux disease without esophagitis; K59.00 Constipation, unspecified; R26.89 Other abnormalities of gait and mobility; I89.0 Lymphedema, not elsewhere classified; L60.0 Ingrowing nail; E03.9 Hypothyroidism, unspecified; I87.8 Other specified disorders of veins; D53.9 Nutritional anemia, unspecified; Z79.01 Long term (current) use of anticoagulants; Z79.890 Hormone replacement therapy; Z79.899 Other long term (current) drug therapy; Z79.51 Long term (current) use of inhaled steroids; Z99.2 Dependence on renal dialysis; R07.89 Other chest pain; M25.562 Pain in left knee; L02.828 Furuncle of other sites; B96.20 Unspecified Escherichia coli [E. coli] as the cause of diseases classified elsewhere; N18.6 End stage renal disease

== ENCOUNTER 2025-06-29 13:06 | Observation (INO) | payer OTHER ==
[~2025-06-29] VITALS: Ht 182.9 cm; Wt 215.3 kg
[~2025-06-29 13:06] MED LIST changes: +ACET1TAB55 PO; +FLUTISP NARES; +LEVO100T5 PO; +MIRA33506 PO; +NYST-38 SS; +PERCOCET PO; +RENV2TAB PO; +SENN-208 PO; +[UNRECOGNIZED DRUG - CODE] PO
[2025-06-29 15:08] LABS: BASO # 0.0 10^3/uL (0.0-0.2); BASO % 0.2 % (0.0-1.0); EOS # 0.2 10^3/uL (0.0-0.5); EOS % 2.7 % (0.0-3.0); LYMPH # 1.8 10^3/uL (1.5-5.0); LYMPH % 20.4 % (24.0-44.0); MONO # 0.5 10^3/uL (0.0-0.8); MONO % 5.9 % (2.0-8.0); NEUTROPHILS # 6.2 10^3/uL (1.5-8.5); NEUTROPHILS % 70.5 % (36.0-66.0); PLATELET COUNT, AUTOMATED 226 10^3/uL (150-450)
[2025-06-29 15:40] LABS: CK-MB VALUE MASS 1.1 NG/ML (<3.6)
[2025-06-29 15:42] LABS: ALT/SGPT 14.0 U/L (7.0-40); AST/SGOT 12.0 U/L (<34); CALCIUM LEVEL 8.0 MG/DL (8.5-10.1); CARBON DIOXIDE LEVEL 23.0 MMOL/L (20-31); CHLORIDE LEVEL 108.0 MMOL/L (98-107); CREATININE FOR GFR 5.87 MG/DL (0.70-1.30); GLOMERULAR FILTRATION RATE 10.8 (>56); POTASSIUM SERUM 5.2 MMOL/L (3.5-5.1); SODIUM LEVEL 143.0 MMOL/L (136-145)
[2025-06-29 15:43] LABS: CPK CREATINE PHOSPHOKINASE 26.0 U/L (46-171); MB/CK RELATIVE INDEX 4.23 (< OR =4)
[2025-06-29] MEDS ORDERED: AMIO200T55 PO (16:41)
[2025-06-29] MEDS ORDERED: HOME MED LIST COMPLETE! XX SCH (16:45)
[2025-06-29] MEDS ORDERED: HEPARIN SOD 5000 UNITS/ML 1 ML VIAL/SYRINGE SQ SCH (17:30)
[2025-06-29] MEDS ORDERED: ALBUTEROL 90 MCG/ACT 8 GM HFA INHALER INH PRN (17:30)
[2025-06-29] MEDS ORDERED: ACETAMINOPHEN 325 MG TAB PO PRN (17:30)
[2025-06-29 18:04] LABS: FREE T4 0.85 NG/DL (0.89-1.76)
[2025-06-29] MEDS: LEVOTHYROXINE 100 MCG TABLET (0.1 MG) PO SCH (18:21)
[2025-06-29] MEDS: SYMBICORT 160/4.5MCG INHALER 6GM INH SCH (19:36)
[2025-06-29 20:41] VITALS: BP 124/61; TEMP 98.2; O2SAT 97
[2025-06-29] MEDS: ATORVASTATIN 20 MG TAB PO SCH (22:08)
[2025-06-29] MEDS: APIXABAN 5 MG TAB PO SCH (22:09)
[2025-06-29] MEDS: SEVELAMER *CARBONate* 800 MG TAB PO SCH (22:09)
[2025-06-29] MEDS: FLUTICASONE PROPIONATE 0.05% NASAL SPRAY 16 GM NARES SCH (22:09)
[2025-06-30] VITALS: BP 132/68; TEMP 98.7; O2SAT 98
[2025-06-30 04:00] VITALS: BP 131/62; TEMP 98.3; O2SAT 97
[2025-06-30] MEDS ORDERED: SODIUM CHLORIDE 0.9% 1000 ML IV PRN (06:00)
[2025-06-30] MEDS ORDERED: HEPARIN 1,000 UNITS/ML 10 ML VIAL (FOR RADIOLOGY & DIALYSIS ONLY) IV PRN (06:00)
[2025-06-30] MEDS: LEVOTHYROXINE 112 MCG TABLET (0.112 MG) PO SCH (06:27)
[2025-06-30 07:40] LABS: PLATELET COUNT, AUTOMATED 257 10^3/uL (150-450)
[2025-06-30 07:54] LABS: CALCIUM LEVEL 8.2 MG/DL (8.5-10.1); CARBON DIOXIDE LEVEL 22.0 MMOL/L (20-31); CHLORIDE LEVEL 107.0 MMOL/L (98-107); CREATININE FOR GFR 6.1 MG/DL (0.70-1.30); GLOMERULAR FILTRATION RATE 10.3 (>56); POTASSIUM SERUM 5.0 MMOL/L (3.5-5.1); SODIUM LEVEL 141.0 MMOL/L (136-145)
[2025-06-30] MEDS: ALTEPLASE 2 MG/2 ML VIAL IV PRN (10:16)
[2025-06-30] MEDS: IRON SUCROSE 100 MG/5 ML VIAL IV SCH (10:16)
[2025-06-30] MEDS: HEPARIN 1,000 UNITS/ML 10 ML VIAL (FOR RADIOLOGY & DIALYSIS ONLY) XX SCH (10:22)
[2025-06-30] MEDS: DARBEPOETIN 200 MCG/0.4 ML *DIALYSIS* SYRINGE IV SCH (11:14)
[2025-06-30 13:11] LABS: IRON (FE) 53.0 UG/DL (65-175); PERCENT SATURATION 21.8 % (19.7-50.0); PHOSPHORUS LEVEL 7.1 MG/DL (2.5-4.9)
[2025-06-30 14:00] VITALS: BP 137/70; TEMP 98.7; O2SAT 98
[2025-06-30] MEDS: AMIODARONE 200 MG TAB PO SCH (14:27)
[2025-06-30] MEDS: PANTOPRAZOLE 40MG TAB PO SCH (14:27)
[2025-06-30 18:00] VITALS: BP 129/62; TEMP 99; O2SAT 98
[2025-06-30 20:48] VITALS: BP 129/58; TEMP 98.5; O2SAT 97
[2025-07-01 00:46] VITALS: BP 127/60; TEMP 99.4; O2SAT 96
[2025-07-01 06:33] VITALS: BP 132/60; TEMP 98.3; O2SAT 97
[2025-07-01 07:37] LABS: CALCIUM LEVEL 8.0 MG/DL (8.5-10.1); CARBON DIOXIDE LEVEL 23.0 MMOL/L (20-31); CHLORIDE LEVEL 111.0 MMOL/L (98-107); CREATININE FOR GFR 4.29 MG/DL (0.70-1.30); GLOMERULAR FILTRATION RATE 15.8 (>56); POTASSIUM SERUM 4.6 MMOL/L (3.5-5.1); SODIUM LEVEL 144.0 MMOL/L (136-145)
[2025-07-01 10:00] VITALS: BP_SYST 162; BP_DIAS 76; BP_DIAS 78; TEMP 98.3; TEMP 98.5; O2SAT 97; O2SAT 98
[2025-07-01 14:00] VITALS: BP 140/62; TEMP 97.1; O2SAT 98
[2025-07-01 18:00] VITALS: BP 154/68; TEMP 98.5; O2SAT 97
[2025-07-01 21:07] VITALS: BP 154/78; TEMP 98.7; O2SAT 96
[2025-07-02 05:34] VITALS: BP 144/73; TEMP 98.2; O2SAT 98
[2025-07-02] MEDS ORDERED: SODIUM CHLORIDE 0.9% 1000 ML IV PRN (06:00)
[2025-07-02] MEDS ORDERED: HEPARIN 1,000 UNITS/ML 10 ML VIAL (FOR RADIOLOGY & DIALYSIS ONLY) IV PRN (06:00)
[2025-07-02 08:29] LABS: CALCIUM LEVEL 8.4 MG/DL (8.5-10.1); CARBON DIOXIDE LEVEL 24.0 MMOL/L (20-31); CHLORIDE LEVEL 110.0 MMOL/L (98-107); CREATININE FOR GFR 5.36 MG/DL (0.70-1.30); GLOMERULAR FILTRATION RATE 12.1 (>56); POTASSIUM SERUM 4.5 MMOL/L (3.5-5.1); SODIUM LEVEL 145.0 MMOL/L (136-145)
[2025-07-02] MEDS: HEPARIN 1,000 UNITS/ML 10 ML VIAL (FOR RADIOLOGY & DIALYSIS ONLY) XX SCH (09:26)
[2025-07-02 14:00] VITALS: BP 137/59; TEMP 98.4; O2SAT 95
[2025-07-02 18:00] VITALS: BP 124/58; TEMP 98.3; O2SAT 97
[2025-07-02 21:24] VITALS: BP 142/64; TEMP 98; O2SAT 96
[2025-07-03 05:34] VITALS: BP 137/62; TEMP 98.2; O2SAT 98
[2025-07-03 10:00] VITALS: BP 124/68; TEMP 98.2; O2SAT 96
[2025-07-04] MEDS ORDERED: LIDOCAINE 1% SDV 5 ML VIAL SC PRN (06:00)
[2025-07-04] MEDS ORDERED: SODIUM CHLORIDE 0.9% 1000 ML IV PRN (06:00)
[2025-07-04 06:19] VITALS: BP 160/78; TEMP 98; O2SAT 97
[2025-07-04] MEDS: HEPARIN 1,000 UNITS/ML 10 ML VIAL (FOR RADIOLOGY & DIALYSIS ONLY) XX SCH (09:33)
[2025-07-04] MEDS: HEPARIN 1,000 UNITS/ML 10 ML VIAL (FOR RADIOLOGY & DIALYSIS ONLY) IV PRN (09:35)
[2025-07-05] MEDS ORDERED: SODIUM CHLORIDE 0.9% 1000 ML IV PRN (06:00)
[2025-07-05] MEDS ORDERED: LIDOCAINE 1% SDV 5 ML VIAL SC PRN (06:00)
[2025-07-05] MEDS: MIRALAX *UNIT DOSE* 17 GM PACKET PO SCH (09:00)
[2025-07-05] MEDS: HEPARIN 1,000 UNITS/ML 10 ML VIAL (FOR RADIOLOGY & DIALYSIS ONLY) XX SCH (10:27)
[2025-07-05] MEDS: HEPARIN 1,000 UNITS/ML 10 ML VIAL (FOR RADIOLOGY & DIALYSIS ONLY) IV PRN (10:28)
[2025-07-05] MEDS ORDERED: SENNOSIDES/DOCUSATE SODIUM 8.6 MG/50MG TAB PO PRN (18:45)
[2025-07-06 07:00] LABS: CALCIUM LEVEL 8.1 MG/DL (8.5-10.1); CARBON DIOXIDE LEVEL 25.0 MMOL/L (20-31); CHLORIDE LEVEL 106.0 MMOL/L (98-107); CREATININE FOR GFR 3.69 MG/DL (0.70-1.30); GLOMERULAR FILTRATION RATE 18.9 (>56); POTASSIUM SERUM 4.0 MMOL/L (3.5-5.1); SODIUM LEVEL 141.0 MMOL/L (136-145)
[2025-07-06 07:27] VITALS: BP 150/72; TEMP 98.6; O2SAT 97
[2025-07-07] MEDS ORDERED: LIDOCAINE 1% SDV 5 ML VIAL SC PRN (06:00)
[2025-07-07] MEDS ORDERED: SODIUM CHLORIDE 0.9% 1000 ML IV PRN (06:00)
[2025-07-07 07:09] VITALS: BP 151/66; TEMP 98.3; O2SAT 97
[2025-07-07 08:00] VITALS: BP 130/64; TEMP 98.1; O2SAT 96
[2025-07-07] MEDS: HEPARIN 1,000 UNITS/ML 10 ML VIAL (FOR RADIOLOGY & DIALYSIS ONLY) IV PRN (13:38)
[2025-07-07] MEDS: HEPARIN 1,000 UNITS/ML 10 ML VIAL (FOR RADIOLOGY & DIALYSIS ONLY) XX SCH (13:38)
[2025-07-08 05:42] VITALS: BP 136/69; TEMP 98.3; O2SAT 96
[2025-07-08 08:00] VITALS: BP 129/59; TEMP 98; O2SAT 96
[2025-07-09 06:40] VITALS: BP 133/70; TEMP 97.9; O2SAT 97
[2025-07-10] MEDS ORDERED: LIDOCAINE 1% SDV 5 ML VIAL SC PRN (06:00)
[2025-07-10] MEDS ORDERED: HEPARIN 1,000 UNITS/ML 10 ML VIAL (FOR RADIOLOGY & DIALYSIS ONLY) IV PRN (06:00)
[2025-07-10] MEDS ORDERED: SODIUM CHLORIDE 0.9% 1000 ML IV PRN (06:00)
[2025-07-10 06:33] VITALS: BP 165/73; TEMP 98.3; O2SAT 96
[2025-07-10] MEDS: HEPARIN 1,000 UNITS/ML 10 ML VIAL (FOR RADIOLOGY & DIALYSIS ONLY) XX SCH (10:03)
[2025-07-11 06:19] VITALS: BP 129/83; TEMP 97.8; O2SAT 96
[2025-07-11 14:50] VITALS: BP 129/61; TEMP 98.1; O2SAT 98
[2025-07-12 05:34] VITALS: BP 145/71; TEMP 97.7; O2SAT 98
[2025-07-13 04:47] VITALS: BP 140/72; TEMP 98.2; O2SAT 98
[2025-07-13] MEDS ORDERED: HEPARIN 1,000 UNITS/ML 10 ML VIAL (FOR RADIOLOGY & DIALYSIS ONLY) IV PRN (06:00)
[2025-07-13] MEDS ORDERED: SODIUM CHLORIDE 0.9% 1000 ML IV PRN (06:00)
[2025-07-13] MEDS: HEPARIN 1,000 UNITS/ML 10 ML VIAL (FOR RADIOLOGY & DIALYSIS ONLY) XX SCH (09:46)
[2025-07-14 06:24] VITALS: BP 129/65; TEMP 98.2; O2SAT 93
[2025-07-14] MEDS ORDERED: LEVO112T2 PO (11:53)
[2025-07-14] MEDS: FLUZONE VACCINE TRI PF(25-26) 0.5ML SYRINGE IM.IMMUN ONE (13:03)
[2025-07-14] MEDS: PNEUMOC 21-VAL CONJ-DIP CRM/PF 0.5 ML SYRINGE IM.IMMUN ONE (13:05)
== END 2025-07-14 15:05 | disposition home health service (06) ==
LOC: M ED 13:06 → M ED INP 17:27 → M MS5PR 20:10
PROVIDERS: ADMIT Student in an Organized Health Care Education/Training Program; ATTEND Internal Medicine
DX: N18.6 End stage renal disease (principal); Z59.19 Other inadequate housing; R46.0 Very low level of personal hygiene; A04.72 Enterocolitis due to Clostridium difficile, not specified as recurrent; E66.2 Morbid (severe) obesity with alveolar hypoventilation; J44.9 Chronic obstructive pulmonary disease, unspecified; I12.0 Hypertensive chronic kidney disease with stage 5 chronic kidney disease or end stage renal disease; Z79.01 Long term (current) use of anticoagulants; Z79.899 Other long term (current) drug therapy; Z99.2 Dependence on renal dialysis
CPT/HCPCS: 36415; 71046; 80048; 80053; 82550; 82553; 83550; 83690; 83880; 84100; 84439; 84443; 84484; 85025; 85027; 87324; 87486; 87507; 87581; 87633; 87798; 90656; 90684; 93005; 94640; 94664; 96365; 96366; 96375; 96376; 97165; 99285; G0008; G0009; J0882; J1756; J2997